=== PATIENT | male | born 1930 | race Caucasian/White ===

== ENCOUNTER 2019-08-02 15:12 | Outpatient (CLI) | payer MEDICARE, OTHER | END 2019-08-02 15:13 | disposition critical access hospital (66) | LOC: EMS 15:12 | PROVIDERS: ATTEND Surgery | DX: T83.028A Displacement of other urinary catheter, initial encounter (principal) | CPT/HCPCS: A0425; A0429 ==

== ENCOUNTER 2019-08-02 15:29 | Emergency (ER) | payer MEDICARE, OTHER ==
--- NOTE | 2019-08-02 16:22 | ED Physician Documentation ---
History of Present Illness - Stated complaint Stated Complaint: - Chief complaint Chief Complaint: General - History obtained from History obtained from: EMS - History of Present Illness Timing: Today Pain level max: 0 Pain level now: 0 - Additonal information Additional information: Patient is DNR, comfort care. He pulled out his catheter today. He was sent here for catheter replacement. Review of Systems Unable to obtain: Dementia PD PAST MEDICAL HISTORY - Past Medical History Past Medical History: Yes Neuro: Dementia - Allergies Allergies/Adverse Reactions: Allergies Allergy/AdvReac Type Severity Reaction Status Date / Time No Known Drug Allergies Allergy Verified 08/02/19 16:34 - Living Situation Living Arrangement: reports: [facility] - Social History Does the pt have substance abuse?: No - POLST POLST Status: DNR PD ED PE NORMAL - Vitals Vital signs reviewed: Yes - General General: Other (cachectic male) - HEENT HEENT: Moist mucous membranes - Neck Neck: Supple, no meningeal sign - Cardiac Cardiac: RRR - Respiratory Respiratory: No respiratory distress, Clear bilaterally - Abdomen Abdomen: Soft, Non tender, Non distended - Male Male : Other (large inguinal hernia. blood at urethral meatus) - Derm Derm: Warm and dry - Neuro Neuro: Other (alert) Results - Vitals Vitals: Vital Signs - 24 hr 08/02/19 08/02/19 08/02/19 15:38 16:07 18:09 Temperature 37.1 C 36.7 C Heart Rate 100 85 Respiratory 18 18 16 Rate Blood Pressure 107/70 108/72 128/90 H O2 Saturation 100 Oxygen O2 Source Room air PD MEDICAL DECISION MAKING - ED course Complexity details: reviewed results, re-evaluated patient, considered differential ED course: Catheter was replaced. Irrigation performed. Catheter placement confirmed with ultrasound. Several liters of irrigation were used with removal of large clots from the bladder. The bladder is now draining well. After 30 minutes, re- irrigation was performed with no more large clots. We will have the patient follow-up with urology and his doctor for further care. This document was made in part using voice recognition software. While efforts a re made to proofread this document, sound alike and grammatical errors may occur. Departure - Departure Disposition: 01 Home, Self Care Clinical Impression: Hematuria Qualifiers: Hematuria type: gross Qualified Code(s): R31.0 - Gross hematuria Dislodged Kemp catheter Qualifiers: Encounter type: initial encounter Qualified Code(s): T83.021A - Displacement of indwelling urethral catheter, initial encounter Condition: Stable Instructions: ED Catheter Care Kemp Follow-Up: your,doctor in 3 days. [Other] Comments: do not remove the catheter. He will likely need to follow up with urology to ensure there is no scarring. He may need to go to a hospital with urology if there is no drainage for 6 hrs.
[2019-08-02 19:10] VITALS: BP 124/89
== END 2019-08-02 19:58 | disposition home or self-care (01) ==
LOC: ED 15:29
DX: T83.021A Displacement of indwelling urethral catheter, initial encounter (principal); R31.0 Gross hematuria; F03.90 Unspecified dementia, unspecified severity, without behavioral disturbance, psychotic disturbance, mood disturbance, and anxiety; Z66 Do not resuscitate
CPT/HCPCS: 51702; 99281; 99283

== ENCOUNTER 2019-08-02 20:00 | Outpatient (CLI) | payer MEDICARE, OTHER | END 2019-08-02 20:01 | disposition home or self-care (01) | LOC: EMS 20:00 | PROVIDERS: ATTEND Surgery | DX: T83.021A Displacement of indwelling urethral catheter, initial encounter (principal); R31.9 Hematuria, unspecified; F03.90 Unspecified dementia, unspecified severity, without behavioral disturbance, psychotic disturbance, mood disturbance, and anxiety | CPT/HCPCS: A0425; A0428 ==

== ENCOUNTER 2019-08-03 13:55 | Outpatient (CLI) | payer MEDICARE, OTHER | END 2019-08-03 13:56 | disposition critical access hospital (66) | LOC: EMS 13:55 | PROVIDERS: ATTEND Surgery | DX: N50.89 Other specified disorders of the male genital organs (principal) | CPT/HCPCS: A0425; A0429 ==

== ENCOUNTER 2019-08-03 14:12 | Emergency (ER) | payer MEDICARE, OTHER ==
--- NOTE | 2019-08-03 14:43 | ED Physician Documentation ---
History of Present Illness - Stated complaint Stated Complaint: CATH ISSUE - Chief complaint Chief Complaint: General - Additonal information Additional information: Mr. Hayes is a 88 year old male who is here today from his retirement. He is demented and his code status is DNR. He was seen here yesterday after he removed his solomon catheter. A new one was installed. He developed left sided scrotal swelling since he was last here. He denies any pain or knowledge that he has swelling. I have not received any reports that he has had pain or fever. Review of Systems Unable to obtain: Dementia Constitutional: denies: Fever, Chills, Myalgias, Weight Loss, Sweats, Other GI: denies: Abdominal Pain, Abdominal Swelling, Nausea, Vomiting, Constipation, Diarrhea, Reviewed and negative, Other : reports: Other (see HPI) PD PAST MEDICAL HISTORY - Past Medical History Neuro: Dementia - Past Surgical History Past Surgical History: No - Present Medications Home Medications: Ambulatory Orders Medication Instructions Recorded Confirmed Apixaban [Eliquis] 2.5 mg PO BID 08/02/19 08/03/19 Finasteride 5 mg PO DAILY 08/02/19 08/03/19 Metoprolol Succinate 150 mg PO DAILY 08/02/19 08/03/19 - Allergies Allergies/Adverse Reactions: Allergies Allergy/AdvReac Type Severity Reaction Status Date / Time No Known Drug Allergies Allergy Verified 08/03/19 14:32 - Social History Does the pt smoke?: No Smoking Status: Never smoker Does the pt drink ETOH?: No Does the pt have substance abuse?: No - Immunizations Immunizations are current?: Yes - POLST Patient has POLST: No POLST Status: DNR PD ED PE NORMAL - Vitals Vital signs reviewed: Yes - General General: No acute distress, Well developed/nourished - HEENT HEENT: Atraumatic - Neck Neck: Supple, no meningeal sign - Cardiac Cardiac: RRR - Respiratory Respiratory: No respiratory distress - Abdomen Abdomen: Normal bowel sounds, Soft - Male Male : Wine Pasteurizer present, Other (solomon intact. There is a non-tender left sided scrotal mass. No induration, warmth, or skin changes. ) Results - Vitals Vitals: Vital Signs - 24 hr 08/03/19 14:23 Temperature 36.2 C L Heart Rate 53 L Respiratory 16 Rate Blood Pressure 132/85 H O2 Saturation 100 Oxygen O2 Source Room air PD MEDICAL DECISION MAKING - ED course Complexity details: other (Seen with attending ER physcican who decocomprssed the mass with direct manipulation. Patient had no pain, this was tolerated well without immediate complication. Patient may contact general surgery for outpatient follow up. Discussed this case with the retirement. They agree to contact surgery for consult, return here as needed for any emergent changes including signs and symptoms of incarceration. I also dicussed this case with our social studies teacher, pateint will need to obtain a referral for hospice consideration from a primary physician. ) Departure - Departure Disposition: 01 Home, Self Care Clinical Impression: Scrotal hernia Condition: Stable Instructions: ED Hernia Inguinal
[2019-08-03 15:01] VITALS: BP 130/80
== END 2019-08-03 15:48 | disposition home or self-care (01) ==
LOC: EDUNIT# → ED 14:12
DX: K40.90 Unilateral inguinal hernia, without obstruction or gangrene, not specified as recurrent (principal); F03.90 Unspecified dementia, unspecified severity, without behavioral disturbance, psychotic disturbance, mood disturbance, and anxiety; Z66 Do not resuscitate
CPT/HCPCS: 99283

== ENCOUNTER 2019-08-03 15:51 | Outpatient (CLI) | payer MEDICARE, OTHER | END 2019-08-03 15:52 | disposition home or self-care (01) | LOC: EMS 15:51 | PROVIDERS: ATTEND Surgery | DX: R41.0 Disorientation, unspecified (principal) | CPT/HCPCS: A0425; A0428 ==

== ENCOUNTER 2019-08-19 07:54 | Outpatient (CLI) | payer MEDICARE, OTHER | END 2019-08-19 07:55 | disposition critical access hospital (66) | LOC: EMS 07:54 | PROVIDERS: ATTEND Surgery | DX: R41.82 Altered mental status, unspecified (principal) | CPT/HCPCS: A0425; A0429 ==

== ENCOUNTER 2019-08-19 08:15 | Inpatient (IN) | payer MEDICARE, OTHER ==
[2019-08-19] MEDS ORDERED: SODIUM CHLORIDE 0.9% 1,000 ML IV ONE (08:21)
[2019-08-19] MEDS ORDERED: DILTIAZEM 50 MG/10 ML VIAL IVP ONE ×2 (08:26→10:58)
--- NOTE | 2019-08-19 08:26 | ED Physician Documentation ---
PD HPI ALTERED MENTAL STATUS - Stated complaint Stated Complaint: ALOC - History obtained from History obtained from: EMS - History of Present Illness Timing - onset: Today (This is an 88-year-old gentleman with dementia who presents from a memory care facility for altered mental status today. It sounds like at his baseline he talks but is pretty demented. Today he was reported to be worse off than normal. Prior to arrival was noted to be modestly hypotensive, in A. fib with RVR, afebrile. Patient is unable to give any history. He is on Eliquis. He has indwelling Kemp catheter. He is been at the current memory facility for only a few weeks.) Review of Systems Unable to obtain: Confused PD PAST MEDICAL HISTORY - Past Medical History Neuro: Dementia - Past Surgical History Past Surgical History: No - Present Medications Home Medications: Ambulatory Orders Medication Instructions Recorded Confirmed Apixaban [Eliquis] 2.5 mg PO BID 08/02/19 08/19/19 Finasteride 5 mg PO DAILY 08/02/19 08/19/19 Metoprolol Succinate 50 mg PO DAILY 08/02/19 08/19/19 Acetaminophen 650 mg PO Q4HR PRN 08/19/19 08/19/19 Bisacodyl Supp [Dulcolax Supp] 10 mg [place] DAILY PRN 08/19/19 08/19/19 Loperamide HCl [Loperamide] 2 mg PO ONCE 08/19/19 08/19/19 Mag Hydrox/Al Hydrox/Simeth 5 ml PO Q4HR PRN 08/19/19 08/19/19 [Antacid Suspension] Magnesium Hydroxide [Milk of 30 ml PO ONCE PRN 08/19/19 08/19/19 Magnesia] - Allergies Allergies/Adverse Reactions: Allergies Allergy/AdvReac Type Severity Reaction Status Date / Time No Known Drug Allergies Allergy Verified 08/19/19 08:32 - Social History Does the pt smoke?: No Smoking Status: Never smoker Does the pt drink ETOH?: No Does the pt have substance abuse?: No - Immunizations Immunizations are current?: Yes - POLST Patient has POLST: No POLST Status: DNR PD ED PE NORMAL - Vitals Vital signs reviewed: Yes - General General: Other (This is a somnolent elderly gentleman who appears thin laying in bed basically unresponsive.) - HEENT HEENT: Other (His pupils are equal and reactive, he seems to have a right gaze preference.) - Neck Neck: Supple, no meningeal sign, No bony TTP - Cardiac Cardiac: Other (Rapid and irregular, no murmur) - Respiratory Respiratory: No respiratory distress, Other (Slightly rhonchorous at the bases) - Abdomen Abdomen: Non tender - Back Back: No CVA TTP, No spinal TTP - Derm Derm: Normal color, Warm and dry - Neuro Neuro: Other (He is somnolent. He responds minimally to painful stimulus, seems more responsive to painful stimulus on the right than the left. Does not really withdraw at all to painful stimulus on the Left side of the face or left upper extremity but does in the left lower extremity a little bit. Does wince and withdraw on the right. He is completely nonverbal.) Eye Opening: To Pain Motor: Withdraws to Pain Verbal: None GCS Score: 7 Results - Vitals Vitals: Vital Signs - 24 hr 08/19/19 08/19/19 08/19/19 08:32 08:57 09:30 Temperature 36.3 C L Heart Rate 153 H 150 H 141 H Respiratory 16 16 16 Rate Blood Pressure 114/85 H 91/74 98/68 O2 Saturation 100 95 97 08/19/19 08/19/19 08/19/19 10:00 10:30 11:00 Temperature Heart Rate 142 H 146 H 129 H Respiratory 14 16 15 Rate Blood Pressure 91/65 93/60 90/62 O2 Saturation 98 99 100 08/19/19 11:30 Temperature Heart Rate 122 H Respiratory 15 Rate Blood Pressure 92/68 O2 Saturation 100 Oxygen O2 Source Nasal cannula - EKG (time done) 0831 Rate: Rate (enter#) (152) Rhythm: Atrial fibrillation Intervals: Other (LAFB) Ischemia: Other (Very mild lateral ST depression, likely rate related). No: ST elevation c/w ischemia Compare to prior EKG: Old EKG unavailable - Labs Labs: Laboratory Tests 08/19/19 08/19/19 08/19/19 08:38 08:38 08:38 WBC RBC Hgb Hct MCV MCH MCHC RDW Plt Count MPV Neut # (Auto) Lymph # (Auto) Dunn # (Auto) Eos # (Auto) Baso # (Auto) Absolute Nucleated RBC Total Counted Band Neuts % (Manual) Abnorm Lymph % (Manual) Nucleated RBC % Neutrophils # (Manual) Lymphocytes # (Manual) Monocytes # (Manual) Eosinophils # (Manual) Basophils # (Manual) Differential Comment Manual Slide Review PT 21.1 H INR 1.9 H APTT 29.3 Sodium 136 Potassium 3.5 Chloride 104 Carbon Dioxide 15 L Anion Gap 17.0 H BUN 156 H* Creatinine 4.3 H Estimated GFR (MDRD) 13 L Glucose 129 H Lactic Acid Calcium 7.4 L Total Bilirubin 1.1 H AST 43 H ALT 26 Alkaline Phosphatase 98 Total Creatine Kinase 51 Troponin I High Sens 17.0 Total Protein 5.5 L Albumin 2.3 L Globulin 3.2 Albumin/Globulin Ratio 0.7 L Lipase 34 Urine Color Urine Clarity Urine pH Ur Specific [place] Urine Protein Urine Glucose (UA) Urine Ketones Urine Occult Blood Urine Nitrite Urine Bilirubin Urine Urobilinogen Ur Leukocyte Esterase Urine RBC Urine WBC Ur Squamous Epith Cells Urine Bacteria Ur Microscopic Review Urine Culture Comments Ethyl Alcohol < 5.0 08/19/19 08/19/19 08/19/19 08:41 10:14 10:14 WBC 29.4 H RBC 4.14 L Hgb 13.2 L Hct 38.7 L MCV 93.5 MCH 31.9 H MCHC 34.1 RDW 14.0 Plt Count 208 MPV 12.0 H Neut # (Auto) Not Reportable Lymph # (Auto) Not Reportable Dunn # (Auto) Not Reportable Eos # (Auto) Not Reportable Baso # (Auto) Not Reportable Absolute Nucleated RBC Not Reportable Total Counted 100 Band Neuts % (Manual) 6 Abnorm Lymph % (Manual) 0 Nucleated RBC % Not Reportable Neutrophils # (Manual) 29.4 H Lymphocytes # (Manual) 0.0 L Monocytes # (Manual) 0.0 Eosinophils # (Manual) 0.0 Basophils # (Manual) 0.0 Differential Comment MANUAL DIFFERENTIAL Manual Slide Review Indicated PT INR APTT Sodium Potassium Chloride Carbon Dioxide Anion Gap BUN Creatinine Estimated GFR (MDRD) Glucose Lactic Acid 2.9 H Calcium Total Bilirubin AST ALT Alkaline Phosphatase Total Creatine Kinase Troponin I High Sens Total Protein Albumin Globulin Albumin/Globulin Ratio Lipase Urine Color RED/BLOODY Urine Clarity CLOUDY Urine pH 8.5 H Ur Specific [place] 1.010 Urine Protein 100 H Urine Glucose (UA) NEGATIVE Urine Ketones NEGATIVE Urine Occult Blood LARGE H Urine Nitrite POSITIVE H Urine Bilirubin NEGATIVE Urine Urobilinogen 0.2 (NORMAL) Ur Leukocyte Esterase LARGE H Urine RBC TNTC H Urine WBC >25 H Ur Squamous Epith Cells NONE SEEN Urine Bacteria Few Ur Microscopic Review INDICATED Urine Culture Comments INDICATED Ethyl Alcohol - Rads (name of study) ct hEAD Radiology: EMP read contemporaneously (NAD) 1V CHEST Radiology: EMP read contemporaneously (Possible early infiltrate or mild vascular fullness) PD MEDICAL DECISION MAKING - ED course ED course: 88-year-old gentleman presents with altered mental status. He has a catheter in place. Per notes obtained later, it was emptied at 6 AM with 300 mL out over the preceding 6 hours, which seems a little low. He is quite altered. He did seem to have maybe some lateralizing symptoms so of course stroke and intracranial hemorrhage were considered. No evidence of this on CT of the head. TPA was otherwise not considered since he is on Eliquis, and subsequently I confirmed with his sister by phone who is his decision maker that he would not want advanced intervention such as TPA, dialysis, intubation, CPR. Further work-up demonstrates significantly elevated white count with acute kidney injury and evidence of UTI. He was administered cefepime and Levaquin for combination of UTI and potential pneumonia on x-ray and urosepsis. He was given IV fluids. He was in A. fib with RVR and this was treated with IV fluids, calcium, AND diltiazem. There was a significant delay to antibiotics and admission because of difficulty obtaining nonhemolyzed labs. - Consults Consults: Request data communications software consultant admit patient (Admitted for further work-up and treatment by Dr. Alemna) - Critical Care Time(min): 45 Time Includes: Direct patient care, Review records, Reassess patient, Document care, Coordinate care, Medical consult, Family consult for hi dec Data interpretation: Labs, Pulse ox, CXR Procedures included in critical care time: Peripheral IV Procedures excluded from critical care time: EKG Departure - Departure Disposition: 66 [facility] DC/Xfer Clinical Impression: Atrial fibrillation with RVR Altered mental status Qualifiers: Altered mental status type: delirium Qualified Code(s): R41.0 - Disorientation, unspecified Sepsis Qualifiers: Sepsis type: sepsis due to unspecified organism Sepsis acute organ dysfunction status: with acute organ dysfunction Severe sepsis acute organ dysfunction type: acute renal failure Acute renal failure type: with acute renal cortical necrosis Severe sepsis shock status: without septic shock Qualified Code(s): A41.9 - Sepsis, unspecified organism Catheter-associated urinary tract infection Qualifiers: Indwelling urinary catheter type: indwelling urethral catheter Encounter type: initial encounter Qualified Code(s): T83.511A - Infection and inflammatory reaction due to indwelling urethral catheter, initial encounter Condition: Serious Discharge Date/Time: 08/19/19 12:50
[2019-08-19 09:01] LABS: INR 1.9 (0.8-1.2); PT - PROTHROMBIN TIME 21.1 secs (9.9-12.6)
[2019-08-19 09:08] LABS: PARTIAL THROMBOPLASTIN TIME 29.3 secs (24.9-33.3)
--- NOTE | 2019-08-19 09:12 | CT Report ---
Reason: altered Procedure Date: 08/19/2019 Accession Number: [id number] / [id number] Procedure: CT - HEAD WO CPT Code: Final Report FULL RESULT: EXAM: CT HEAD EXAM DATE: 08/19/2019 08:55 AM. CLINICAL HISTORY: Confusion. COMPARISON: CT HEAD WO CONTRAST 07/20/2019 1:26 PM. TECHNIQUE: Multiaxial CT images were obtained from the foramen magnum to the vertex. Reformats: Sagittal and coronal. IV contrast: None. In accordance with CT protocol optimization, one or more of the following dose reduction techniques were utilized for this exam: automated exposure control, adjustment of mA and/or KV based on patient size, or use of iterative reconstructive technique. FINDINGS: There is streak artifact secondary to patient head positioning and mild motion. Parenchyma: No intraparenchymal hemorrhage. No evidence of mass, midline shift, or CT findings of infarction. Scattered periventricular white matter hypodensity likely represents small vessel ischemic disease. Extraaxial Spaces: There is generalized volume loss. No subdural or epidural collections identified. Ventricles: Normal in size and position. Sinuses and Orbits: Imaged paranasal sinuses, orbits, and mastoids show no significant abnormality. Bones: No evidence of fracture or calvarial defect. Other: None. IMPRESSION: Limited assessment of the posterior fossa secondary to patient positioning. Within the visualized brain, no acute CT abnormalities are seen. RADIA
[2019-08-19 09:17] LABS: BILIRUBIN,URINE NEGATIVE (NEGATIVE); GLUCOSE, URINE (UA) NEGATIVE (NEGATIVE); KETONES,URINE (UA) NEGATIVE (NEGATIVE); LEUKOCYTE ESTERASE, URINE LARGE (NEGATIVE); NITRITE,URINE POSITIVE (NEGATIVE); OCCULT BLOOD,URINE LARGE (NEGATIVE); PH,URINE 8.5 PH (5.0-7.5); PROTEIN,URINE 100 mg/dL (NEGATIVE); UROBILINOGEN,URINE 0.2 (NORMAL) E.U./dL (NORMAL)
[2019-08-19 09:18] LABS: CLARITY,URINE CLOUDY (CLEAR)
--- NOTE | 2019-08-19 09:19 | XRAY Report ---
Reason: altered Procedure Date: 08/19/2019 Accession Number: [id number] / [id number] Procedure: XR - Chest 1 View X-Ray CPT Code: 31922 Final Report FULL RESULT: EXAM: CHEST RADIOGRAPHY EXAM DATE: 08/19/2019 09:11 AM. CLINICAL HISTORY: Altered mental status. COMPARISON: XR CHEST AP PORTABLE 07/20/2019 12:40 PM. TECHNIQUE: 1 view. FINDINGS: Lungs/Pleura: Some increased density in both lungs, previously noted left pleural effusion is no longer present. Mediastinum: Within exam limitations, the cardiomediastinal contour is normal. Other: None. IMPRESSION: 1. Increased density of both lungs. This is vascular versus early infiltrate. The previously noted left pleural effusion is no longer present. RADIA
[2019-08-19 09:30] LABS: ALBUMIN 2.3 g/dL (3.2-5.5); ALBUMIN/GLOBULIN RATIO 0.7 (1.0-2.2); ALKALINE PHOSPHATASE 98 IU/L (42-121); ALT ALANINE AMINOTRANSFERASE 26 IU/L (10-60); AST ASPARTATE AMINOTRANSFERASE 43 IU/L (10-42); BILIRUBIN,TOTAL 1.1 mg/dL (0.2-1.0); BUN - BLOOD UREA NITROGEN 156 mg/dL (6-20); CALCIUM 7.4 mg/dL (8.5-10.3); CARBON DIOXIDE - CO2 15 mmol/L (21-32); CHLORIDE 104 mmol/L (101-111); CK- CREATINE KINASE 51 IU/L (22-269); CREATININE 4.3 mg/dL (0.6-1.2); GLUCOSE 129 mg/dL (70-100); LIPASE 34 U/L (22-51); SODIUM 136 mmol/L (135-145); TOTAL PROTEIN 5.5 g/dL (6.7-8.2)
[2019-08-19] MEDS ORDERED: CALCIUM GLUCONATE 1,000 MG in SODIUM CHLORIDE 0.9% 50 ML IV STA (09:34)
[2019-08-19 09:40] LABS: BACTERIA,URINE Few /HPF (None Seen); RBC,URINE TNTC /HPF (0-5); SQUAMOUS EPITHELIAL CELL,UR NONE SEEN (<= Few)
[2019-08-19] MEDS ORDERED: CEFEPIME 2 GM in SODIUM CHLORIDE 0.9% MINIBAG 100 ML IV STA (09:47)
[2019-08-19 10:23] LABS: BASOPHILS % (AUTO) 0.3 %; HGB - HEMOGLOBIN 13.2 g/dL (14.0-18.0); LYMPHOCYTES % (AUTO) 2.7 %; MEAN CORPUSCULAR HEMOGLOBIN 31.9 pg (27.0-31.0); MEAN CORPUSCULAR HGB CONC 34.1 g/dL (32.0-36.0); MEAN CORPUSCULAR VOLUME 93.5 fL (80.0-94.0); MONOCYTES % (AUTO) 1.8 %; NEUTROPHILS % (AUTO) 93.8 %; PLT - PLATELET COUNT 208 10^3/uL (130-450); RED BLOOD COUNT 4.14 10^6/uL (4.70-6.10); WHITE BLOOD COUNT 29.4 x10^3/uL (4.8-10.8)
[2019-08-19 10:28] LABS: ABNORMAL LYMPHS % (MANUAL) 0 %; LYMPHOCYTES % (MANUAL) 0 %
[2019-08-19] MEDS ORDERED: levoFLOXacin 750 MG/150 ML 750 MG/150 ML BAG IV ONE (10:41)
[2019-08-19 10:48] LABS: BAND NEUTROPHILS % (MANUAL) 6 %; DIFFERENTIAL COMMENT MANUAL DIFFERENTIAL
[2019-08-19] MEDS ORDERED: diltiaZEM INJ 125 MG in DEXTROSE 5% 100 ML IV STA (10:58)
[2019-08-19] MEDS ORDERED: ONDANSETRON 4 MG/2 ML VIAL IVP PRN (11:32)
[2019-08-19] MEDS ORDERED: DEXTROSE 5%-0.9% NACL 1,000 ML IV SCH (12:00)
--- NOTE | 2019-08-19 13:12 | HISTORY & PHYSICAL EXAMINATION ---
Chief Complaint - Chief Complaint Chief Complaint: altered mental status at [facility] History of Present Illness - Admitted From Admitted From:: ED - History Obtained From Records Reviewed: [facility] and spoke with nurse at [facility] History obtained from: ED physician and [facility] nurse Exam Limitations: Pt was obtunded - History of Present Illness HPI Comment/Other: 88 yo male who resides at [facility] comes in because he was noted to be obtunded this morning by staff. No seizure activity noted. Pt has diagnosis of alzheimers dementia and was recently admitted to [facility] from [facility] for acute renal failure (resolved), urethral obstruction, BPH, pleural effusion. Pt had recently had his metoprolol dose dropped from 100 mg daily to 50 mg daily. He is on eliquis 2.5 mg twice daily for anticoagulation for atrial fibrillation. Pt came to our facility with indwelling solomon catheter that had been in place since being on [facility]. History - Past Medical History Cardiovascular: reports: Atrial fibrillation, Arrhythmia Neuro: reports: Alzhiemer's, Dementia : reports: Benign prostate hypertrophy, Retention, Renal insuffiency, Indwelling catheter MRSA Hx?: No - POLST Patient has POLST: No POLST Status: DNR Meds/Allgy - Home Medications Home Medications: Ambulatory Orders Medication Instructions Recorded Confirmed Apixaban [Eliquis] 2.5 mg PO BID 08/02/19 08/19/19 Finasteride 5 mg PO DAILY 08/02/19 08/19/19 Metoprolol Succinate 50 mg PO DAILY 08/02/19 08/19/19 Acetaminophen 650 mg PO Q4HR PRN 08/19/19 08/19/19 Bisacodyl Supp [Dulcolax Supp] 10 mg [place] DAILY PRN 08/19/19 08/19/19 Loperamide HCl [Loperamide] 2 mg PO ONCE 08/19/19 08/19/19 Mag Hydrox/Al Hydrox/Simeth 5 ml PO Q4HR PRN 08/19/19 08/19/19 [Antacid Suspension] Magnesium Hydroxide [Milk of 30 ml PO ONCE PRN 08/19/19 08/19/19 Magnesia] - Allergies Allergies/Adverse Reactions: Allergies Allergy/AdvReac Type Severity Reaction Status Date / Time No Known Drug Allergies Allergy Verified 08/19/19 08:32 Review of Systems - Constitutional Constitutional: reports: Other (unable to obtain due to pts being obtunded) Exam - Vital Signs Vital Signs: Vital Signs x48h Temp Pulse Pulse Resp BP BP Pulse Ox 08/19/19 12:55 35.8 C L 146 H 18 110/84 H 99 08/19/19 12:30 124 H 17 95/69 99 08/19/19 12:00 126 H 16 78/53 L 99 08/19/19 11:30 122 H 15 92/68 100 08/19/19 11:00 129 H 15 90/62 100 08/19/19 10:30 146 H 16 93/60 99 08/19/19 10:00 142 H 14 91/65 98 08/19/19 09:30 141 H 16 98/68 97 08/19/19 08:57 150 H 16 91/74 95 08/19/19 08:32 36.3 C L 153 H 16 114/85 H 100 - Physical Exam General Appearance: positive: Lethargic (Does not respond to answer to any commands) Eyes Bilateral: positive: Other (Mild lateral gaze) ENT: positive: Dry mucous membranes Neck: positive: Nml inspection Respiratory: positive: Other (Decrease breath sounds in the lung bases, but no respiratory distress) Cardiovascular: positive: Irregularly irregular Abdomen: positive: Other (Pts lower abdomen was mildly hard, pt did not seem to respond in pain with exam) Skin: positive: Color nml Extremities: positive: Pedal edema Neurologic/Psychiatric: positive: Disoriented to person, Disoriented to place, Disoriented to time Sepsis Event Note (H) - Evaluation Current Stage of Sepsis: Sepsis Possible source of Sepsis: positive: Pulmonary, Genitourinary - Sepsis Criteria Sepsis Criteria: Recorded Heart Rate greater than 90 bpm, Respiratory: Increasing oxygen requirements, WBC count greater than 12,000 or less than 4000, OUTSIDE SALES ACCOUNT EXECUTIVE: altered consciousness (unrelated to primary neuro pathology), SBP less than 90 mmHg, Metabolic: lactate > 2 mmol/L Conclusion/Plan - Problem List (1) Sepsis Conclusion/Plan: Admit to ICU Pt had antibiotics of cefepime and Levaquin IV given in ED. Will repeat CXR and follow blood cultures, urine cultures and will get COVID testing Qualifiers: Sepsis type: sepsis due to unspecified organism Sepsis acute organ dysfunction status: with acute organ dysfunction Severe sepsis acute organ dysfunction type: acute renal failure Acute renal failure type: with acute renal cortical necrosis Severe sepsis shock status: without septic shock Qualified Code(s): A41.9 - Sepsis, unspecified organism; R65.20 - Severe sepsis without septic shock; N17.1 - Acute kidney failure with acute cortical necrosis (2) Altered mental status Conclusion/Plan: Likely worsening AMS from Sepsis. HIs baseline is some confusion as he has diagnosis of alzheimers dementia and lives at a memory care facility ([facility]) Qualifiers: Altered mental status type: delirium Qualified Code(s): R41.0 - Disorientation, unspecified (3) Atrial fibrillation with RVR Conclusion/Plan: Diltiazem Drip for rate control Pt was on metoprolol succinate previous to admit for rate controlled which was recently lowered dose from 100 mg to 50 mg in reviewing old records. I suspect most of this rapid rate is due to sepsis. first troponin was negative, will repeat another one Echo ordered (4) Acute renal failure (ARF) Conclusion/Plan: I do not have patient's baseline renal function, did request it be faxed from [facility]. He was recently admitted from [facility] with ARF likely due to BPH with obstruction, will request records (5) Catheter-associated urinary tract infection Conclusion/Plan: This is the mostly likely source of the sepsis, solomon catheter will be changed. Follow urine culture and blood cultures, but pt did not have a normal CXR. Qualifiers: Indwelling urinary catheter type: indwelling urethral catheter Encounter type: initial encounter Qualified Code(s): T83.511A - Infection and inflammatory reaction due to indwelling urethral catheter, initial encounter; N39.0 - Urinary tract infection, site not specified (6) Alzheimer's dementia Conclusion/Plan: Patient has this dx at baseline and resides at memory care unit. - Lab Results Fish Bones: 08/19/19 10:14 08/19/19 08:38 - Diagnostic Imaging Results Diagnostic Imaging Results: positive: Final report reviewed (CXR shows early infiltrate vs vascular congestion), Read independently Diagnostic Imaging Results Comments: CT head, limited posterior view, but nothing acute CXR - possible early infiltrate - EKG Results EKG Interpreted Independently: Yes EKG Comparison: Old EKG unavailable
--- NOTE | 2019-08-19 13:21 | XRAY Report ---
Reason: abdominal tenderness/sepsis Procedure Date: 08/19/2019 Accession Number: [id number] / [id number] Procedure: XR - Abdomen 1 View X-Ray CPT Code: 74067 Final Report FULL RESULT: EXAM: ABDOMEN RADIOGRAPHY EXAM DATE: 08/19/2019 12:16 PM. CLINICAL HISTORY: Abdominal tenderness/sepsis. COMPARISON: CT ABDOMEN PELVIS WO C 07/20/2019 1:34 PM CHEST 1 VIEW 08/19/2019 8:51 AM. TECHNIQUE: 1 view. FINDINGS IMPRESSION: Multiple leads overlie the abdomen. The bowel gas pattern is nonobstructive. No bowel dilation. There is bowel within a left inguinal hernia, better demonstrated on previous CT. Small amount of visible stool. Moderate scoliosis.
--- NOTE | 2019-08-19 13:45 | PHARMACY PROGRESS NOTE ---
- Best Possible Medication History Admit Date and Time: 08/19/19 1132 Processed by: Nursing Medication History completed: Yes As the person ultimately responsible for medication therapy, providers are able to order a medication from an existing home medication list in [facility] via the "Reconcile Routine" prior to Confirmation of that medication by systems support engineer. Such practice is discouraged except when the physician, in their clinical judgment, deems that a medical need exists for a medication without regard to previous use.
[2019-08-19] MEDS: SODIUM CHLORIDE FLUSH 0.9% 10 ML SYRINGE IVP SCH (16:15)
[2019-08-19] MEDS: ZINC OXIDE 20% OINT 30 GM TUBE TOP PRN (16:16)
--- NOTE | 2019-08-19 18:06 | Ultrasound Report ---
Reason: urinary retention, indwelling solomon Procedure Date: 08/19/2019 Accession Number: [id number] / [id number] Procedure: US - Retroperitoneal CPT Code: Final Report FULL RESULT: EXAM: RENAL ULTRASOUND EXAM DATE: 08/19/2019 02:32 PM. CLINICAL HISTORY: Urinary retention, indwelling solomon. COMPARISON: ABDOMEN 1 VIEW 08/19/2019 11:[address] ABDOMEN PELVIS WO C 07/20/2019 1:34 PM XR CHEST AP PORTABLE 07/20/2019 12:40 PM. TECHNIQUE: Real-time scanning was performed with static images obtained. FINDINGS: Limited exam due to patient condition. Right Kidney: 14.4 x 0.6 x 10.7 cm. There is moderate hydronephrosis. The cortex is echogenic. There is a mid pole lesion extending into the hilum with heterogeneous echogenicity and numerous cystic cavities measuring 7.7 x 5.6 x 9.7 cm. This appeared mostly cystic on the noncontrast CT. Left Kidney: 12.4 cm in length. Limited visualization. Mildly echogenic cortex. Moderate hydronephrosis. Bladder: The bladder is decompressed and contains a Solomon catheter. Other: None. IMPRESSION: 1. Limited exam. Decompressed urinary bladder with Solomon catheter in place. 2. Bilateral hydronephrosis. 3. Cystic right renal mass. RADIA
--- NOTE | 2019-08-19 18:09 | Ultrasound Report ---
Reason: left scrotal edema Procedure Date: 08/19/2019 Accession Number: [id number] / [id number] Procedure: US - Testicle CPT Code: Final Report FULL RESULT: EXAM: SCROTAL ULTRASOUND EXAM DATE: 08/19/2019 03:43 PM. CLINICAL HISTORY: Left scrotal edema. COMPARISON: CT ABDOMEN PELVIS WO C 07/20/2019 1:34 PM. TECHNIQUE: Real-time scanning was performed with static images obtained. Color-flow images were utilized. FINDINGS IMPRESSION: Limited exam due to patient condition. The large left inguinal hernia is better visualized on prior CT. Limited visualization of both testicles is grossly unremarkable. There is venous flow to the testicles bilaterally.
[2019-08-19] MEDS ORDERED: DEXTROSE 5%-0.45% NACL 1,000 ML IV SCH (19:00)
[2019-08-19] MEDS: DILTIAZEM 125 MG in DEXTROSE 5% 100 ML IV SCH (20:49)
[2019-08-19] MEDS ORDERED: FAMOTIDINE 20 MG/2 ML VIAL IVP SCH (21:00)
[2019-08-19] MEDS: DEXTROSE 5%-0.45% NACL 1,000 ML IV SCH (22:10)
[2019-08-19] MEDS: ENOXAPARIN 40 MG/0.4 ML SYRINGE SUBQ SCH (22:34)
[2019-08-19] MEDS: METOPROLOL 5 MG/5 ML VIAL IVP PRN (22:35)
[2019-08-19] MEDS ORDERED: ENOXAPARIN 30 MG/0.3 ML SYRINGE SUBQ SCH (23:00)
[2019-08-20] MEDS: SODIUM CHLORIDE FLUSH 0.9% 10 ML SYRINGE IVP SCH ×3 (00:09→19:40)
[2019-08-20] MEDS: METOPROLOL 5 MG/5 ML VIAL IVP PRN ×2 (04:40→11:59)
[2019-08-20 05:01] LABS: BASOPHILS % (AUTO) 0.2 %; EOSINOPHILS % (AUTO) 0.1 %; HGB - HEMOGLOBIN 12.1 g/dL (14.0-18.0); LYMPHOCYTES # (AUTO) 0.8 10^3/uL (1.5-3.5); LYMPHOCYTES % (AUTO) 4.3 %; MEAN CORPUSCULAR HEMOGLOBIN 31.5 pg (27.0-31.0); MEAN CORPUSCULAR HGB CONC 34.5 g/dL (32.0-36.0); MEAN CORPUSCULAR VOLUME 91.4 fL (80.0-94.0); MEAN PLATELET VOLUME 11.6 fL (7.4-11.4); MONOCYTES # (AUTO) 0.6 10^3/uL (0.0-1.0); MONOCYTES % (AUTO) 2.9 %; NEUTROPHILS # (AUTO) 17.5 10^3/uL (1.5-6.6); NEUTROPHILS % (AUTO) 91.5 %; PLT - PLATELET COUNT 233 10^3/uL (130-450); RED BLOOD COUNT 3.84 10^6/uL (4.70-6.10); RED CELL DISTRIBUTION WIDTH 13.8 % (12.0-15.0); WHITE BLOOD COUNT 19.1 x10^3/uL (4.8-10.8)
[2019-08-20 05:24] LABS: ALBUMIN 2.1 g/dL (3.2-5.5); ALBUMIN/GLOBULIN RATIO 0.7 (1.0-2.2); BILIRUBIN,TOTAL 0.7 mg/dL (0.2-1.0); CALCIUM 7.1 mg/dL (8.5-10.3); CREATININE 3.6 mg/dL (0.6-1.2); TOTAL PROTEIN 5.1 g/dL (6.7-8.2)
[2019-08-20] MEDS: DILTIAZEM 125 MG in DEXTROSE 5% 100 ML IV SCH (05:50)
[2019-08-20] MEDS: DEXTROSE 5%-0.45% NACL 1,000 ML IV SCH (06:56)
[2019-08-20 07:05] LABS: PT - PROTHROMBIN TIME 21.6 secs (9.9-12.6)
[2019-08-20] MEDS ORDERED: levoFLOXacin 750 MG/150 ML 750 MG/150 ML BAG IV ONE (08:00)
[2019-08-20] MEDS ORDERED: CEFEPIME IV SCH (09:00)
[2019-08-20] MEDS ORDERED: SODIUM CHLORIDE 0.9% IV SCH (09:00)
[2019-08-20] MEDS ORDERED: METOPROLOL SUCCINATE 50 MG TABLET PO SCH (09:00)
[2019-08-20] MEDS: CEFEPIME 1 GM in SODIUM CHLORIDE 0.9% MINIBAG 100 ML IV SCH (09:09)
[2019-08-20] MEDS: polyethylene glycoL 3350 17 GM PACKET PO SCH (09:18)
--- NOTE | 2019-08-20 09:25 | PROVIDER PROGRESS NOTE ---
Subjective - Prog Note Date Prog Note Date: 08/20/19 Prog Note Time: 09:40 - Subjective Pt reports feeling: Improved (88 yo M with Alzheimer's disease admitted on for sepsis with urinary source due to solomon catheter (chronic) associated UTI found to have gram positive bacteremia. This morning he reports feeling well. He denies feeling ill, pain.) Objective - Vital Signs/Intake & Output Vital Signs: Vital Signs x48h Temp Pulse Resp BP BP Pulse Ox 08/20/19 09:00 36.0 C L 77 19 96/68 100 08/20/19 08:45 127 H 16 96/65 08/20/19 08:00 36.1 C L 121 H 23 82/65 L 98 08/20/19 07:00 36.2 C L 120 H 21 87/53 L 99 08/20/19 06:00 36.2 C L 113 H 19 108/74 99 08/20/19 05:30 97/69 08/20/19 05:00 36.2 C L 115 H 15 100/72 99 08/20/19 04:40 110/68 08/20/19 04:00 36.3 C L 123 H 14 84/61 L 98 08/20/19 03:00 36.3 C L 121 H 20 103/71 99 08/20/19 02:00 36.4 C L 112 H 15 89/58 L 98 Intake & Output: Intake & Output 08/17/19 08/18/19 08/19/19 08/20/19 23:59 23:59 23:59 23:59 Intake Total 2406.750 938.301 Output Total 2855 1227 Balance -448.250 -288.699 - Objective General Appearance: positive: No acute distress, Alert Eyes Bilateral: positive: Normal inspection Cardiovascular: positive: Irregularly irregular, Tachycardia Abdomen: positive: Non-tender, Nml bowel sounds, No distention Extremities: positive: Pedal edema (3+ BILATERAL FEET, SYMMETRIC), Other (MULTIPLE SMALL ABRASIONS ON THE MEDIAL ASPECTS WITH SCABS) Neurologic/Psychiatric: negative: Facial droop, Slurred/abnml speech - Lab Results Fish Bones: 08/20/19 04:30 08/20/19 04:30 Other Labs: Lab Results x24hrs 08/20/19 08/20/19 08/20/19 Range/Units 06:55 04:30 04:30 WBC 19.1 H (4.8-10.8) x10^3/uL RBC 3.84 L (4.70-6.10) 10^6/uL Hgb 12.1 L (14.0-18.0) g/dL Hct 35.1 L (42.0-52.0) % MCV 91.4 (80.0-94.0) fL MCH 31.5 H (27.0-31.0) pg MCHC 34.5 (32.0-36.0) g/dL RDW 13.8 (12.0-15.0) % Plt Count 233 (130-450) 10^3/uL MPV 11.6 H (7.4-11.4) fL Neut # (Auto) 17.5 H Lymph # (Auto) 0.8 L [place] # (Auto) 0.6 Eos # (Auto) 0.0 Baso # (Auto) 0.0 Absolute Nucleated RBC 0.00 Total Counted Band Neuts % (Manual) (0 - 10) % Abnorm Lymph % (Manual) % Nucleated RBC % 0.0 Neutrophils # (Manual) (1.5-6.6) 10^3/uL Lymphocytes # (Manual) (1.5-3.5) 10^3/uL Monocytes # (Manual) (0.0-1.0) 10^3/uL Eosinophils # (Manual) (0-0.7) 10^3/uL Basophils # (Manual) (0-0.1) 10^3/uL Differential Comment Manual Slide Review PT 21.6 H (9.9-12.6) secs INR 2.0 H (0.8-1.2) APTT (24.9-33.3) secs Sodium (135-145) mmol/L Potassium (3.5-5.0) mmol/L Chloride (101-111) mmol/L Carbon Dioxide (21-32) mmol/L Anion Gap (6-13) BUN (6-20) mg/dL Creatinine (0.6-1.2) mg/dL Estimated GFR (MDRD) (>89) Glucose (70-100) mg/dL Lactic Acid 1.6 (0.5-2.2) mmol/L Calcium (8.5-10.3) mg/dL Total Bilirubin (0.2-1.0) mg/dL AST (10-42) IU/L ALT (10-60) IU/L Alkaline Phosphatase (42-121) IU/L Total Creatine Kinase (22-269) IU/L Troponin I High Sens (2.3-19.7) ng/L Total Protein (6.7-8.2) g/dL Albumin (3.2-5.5) g/dL Globulin (2.1-4.2) g/dL Albumin/Globulin Ratio (1.0-2.2) Lipase (22-51) U/L Urine RBC (0-5) /HPF Urine WBC (0-3) /HPF Ur Squamous Epith Cells (<= Few) Urine Bacteria (None Seen) /HPF Urine Culture Comments Nasal Screen MRSA (PCR) (NEGATIVE) Ethyl Alcohol mg/dL Blood Type Antibody Screen 08/20/19 08/20/19 08/20/19 Range/Units 04:30 04:30 04:30 WBC (4.8-10.8) x10^3/uL RBC (4.70-6.10) 10^6/uL Hgb (14.0-18.0) g/dL Hct (42.0-52.0) % MCV (80.0-94.0) fL MCH (27.0-31.0) pg MCHC (32.0-36.0) g/dL RDW (12.0-15.0) % Plt Count (130-450) 10^3/uL MPV (7.4-11.4) fL Neut # (Auto) Lymph # (Auto) [place] # (Auto) Eos # (Auto) Baso # (Auto) Absolute Nucleated RBC Total Counted Band Neuts % (Manual) (0 - 10) % Abnorm Lymph % (Manual) % Nucleated RBC % Neutrophils # (Manual) (1.5-6.6) 10^3/uL Lymphocytes # (Manual) (1.5-3.5) 10^3/uL Monocytes # (Manual) (0.0-1.0) 10^3/uL Eosinophils # (Manual) (0-0.7) 10^3/uL Basophils # (Manual) (0-0.1) 10^3/uL Differential Comment Manual Slide Review PT (9.9-12.6) secs INR (0.8-1.2) APTT 32.2 (24.9-33.3) secs Sodium 140 (135-145) mmol/L Potassium 2.6 L (3.5-5.0) mmol/L Chloride 113 H (101-111) mmol/L Carbon Dioxide 16 L (21-32) mmol/L Anion Gap 11.0 (6-13) BUN 137 H* (6-20) mg/dL Creatinine 3.6 H (0.6-1.2) mg/dL Estimated GFR (MDRD) 16 L (>89) Glucose 181 H (70-100) mg/dL Lactic Acid (0.5-2.2) mmol/L Calcium 7.1 L (8.5-10.3) mg/dL Total Bilirubin 0.7 (0.2-1.0) mg/dL AST 24 (10-42) IU/L ALT 24 (10-60) IU/L Alkaline Phosphatase 77 (42-121) IU/L Total Creatine Kinase (22-269) IU/L Troponin I High Sens (2.3-19.7) ng/L Total Protein 5.1 L (6.7-8.2) g/dL Albumin 2.1 L (3.2-5.5) g/dL Globulin 3.0 (2.1-4.2) g/dL Albumin/Globulin Ratio 0.7 L (1.0-2.2) Lipase (22-51) U/L Urine RBC (0-5) /HPF Urine WBC (0-3) /HPF Ur Squamous Epith Cells (<= Few) Urine Bacteria (None Seen) /HPF Urine Culture Comments Nasal Screen MRSA (PCR) (NEGATIVE) Ethyl Alcohol mg/dL Blood Type O NEGATIVE Antibody Screen NEGATIVE 08/19/19 08/19/19 08/19/19 Range/Units 22:04 18:14 13:08 WBC (4.8-10.8) x10^3/uL RBC (4.70-6.10) 10^6/uL Hgb (14.0-18.0) g/dL Hct (42.0-52.0) % MCV (80.0-94.0) fL MCH (27.0-31.0) pg MCHC (32.0-36.0) g/dL RDW (12.0-15.0) % Plt Count (130-450) 10^3/uL MPV (7.4-11.4) fL Neut # (Auto) Lymph # (Auto) [place] # (Auto) Eos # (Auto) Baso # (Auto) Absolute Nucleated RBC Total Counted Band Neuts % (Manual) (0 - 10) % Abnorm Lymph % (Manual) % Nucleated RBC % Neutrophils # (Manual) (1.5-6.6) 10^3/uL Lymphocytes # (Manual) (1.5-3.5) 10^3/uL Monocytes # (Manual) (0.0-1.0) 10^3/uL Eosinophils # (Manual) (0-0.7) 10^3/uL Basophils # (Manual) (0-0.1) 10^3/uL Differential Comment Manual Slide Review PT (9.9-12.6) secs INR (0.8-1.2) APTT (24.9-33.3) secs Sodium (135-145) mmol/L Potassium (3.5-5.0) mmol/L Chloride (101-111) mmol/L Carbon Dioxide (21-32) mmol/L Anion Gap (6-13) BUN (6-20) mg/dL Creatinine (0.6-1.2) mg/dL Estimated GFR (MDRD) (>89) Glucose (70-100) mg/dL Lactic Acid 1.7 (0.5-2.2) mmol/L Calcium (8.5-10.3) mg/dL Total Bilirubin (0.2-1.0) mg/dL AST (10-42) IU/L ALT (10-60) IU/L Alkaline Phosphatase (42-121) IU/L Total Creatine Kinase (22-269) IU/L Troponin I High Sens 14.0 (2.3-19.7) ng/L Total Protein (6.7-8.2) g/dL Albumin (3.2-5.5) g/dL Globulin (2.1-4.2) g/dL Albumin/Globulin Ratio (1.0-2.2) Lipase (22-51) U/L Urine RBC (0-5) /HPF Urine WBC (0-3) /HPF Ur Squamous Epith Cells (<= Few) Urine Bacteria (None Seen) /HPF Urine Culture Comments Nasal Screen MRSA (PCR) NEGATIVE (NEGATIVE) Ethyl Alcohol mg/dL Blood Type Antibody Screen 08/19/19 08/19/19 08/19/19 Range/Units 10:14 10:14 08:41 WBC 29.4 H (4.8-10.8) x10^3/uL RBC 4.14 L (4.70-6.10) 10^6/uL Hgb 13.2 L (14.0-18.0) g/dL Hct 38.7 L (42.0-52.0) % MCV 93.5 (80.0-94.0) fL MCH 31.9 H (27.0-31.0) pg MCHC 34.1 (32.0-36.0) g/dL RDW 14.0 (12.0-15.0) % Plt Count 208 (130-450) 10^3/uL MPV 12.0 H (7.4-11.4) fL Neut # (Auto) Not Reportable Lymph # (Auto) Not Reportable [place] # (Auto) Not Reportable Eos # (Auto) Not Reportable Baso # (Auto) Not Reportable Absolute Nucleated RBC Not Reportable Total Counted 100 Band Neuts % (Manual) 6 (0 - 10) % Abnorm Lymph % (Manual) 0 % Nucleated RBC % Not Reportable Neutrophils # (Manual) 29.4 H (1.5-6.6) 10^3/uL Lymphocytes # (Manual) 0.0 L (1.5-3.5) 10^3/uL Monocytes # (Manual) 0.0 (0.0-1.0) 10^3/uL Eosinophils # (Manual) 0.0 (0-0.7) 10^3/uL Basophils # (Manual) 0.0 (0-0.1) 10^3/uL Differential Comment MANUAL DIFFERENTIAL Manual Slide Review Indicated PT (9.9-12.6) secs INR (0.8-1.2) APTT (24.9-33.3) secs Sodium (135-145) mmol/L Potassium (3.5-5.0) mmol/L Chloride (101-111) mmol/L Carbon Dioxide (21-32) mmol/L Anion Gap (6-13) BUN (6-20) mg/dL Creatinine (0.6-1.2) mg/dL Estimated GFR (MDRD) (>89) Glucose (70-100) mg/dL Lactic Acid 2.9 H (0.5-2.2) mmol/L Calcium (8.5-10.3) mg/dL Total Bilirubin (0.2-1.0) mg/dL AST (10-42) IU/L ALT (10-60) IU/L Alkaline Phosphatase (42-121) IU/L Total Creatine Kinase (22-269) IU/L Troponin I High Sens (2.3-19.7) ng/L Total Protein (6.7-8.2) g/dL Albumin (3.2-5.5) g/dL Globulin (2.1-4.2) g/dL Albumin/Globulin Ratio (1.0-2.2) Lipase (22-51) U/L Urine RBC TNTC H (0-5) /HPF Urine WBC >25 H (0-3) /HPF Ur Squamous Epith Cells NONE SEEN (<= Few) Urine Bacteria Few (None Seen) /HPF Urine Culture Comments INDICATED Nasal Screen MRSA (PCR) (NEGATIVE) Ethyl Alcohol mg/dL Blood Type Antibody Screen 08/19/19 Range/Units 08:38 WBC (4.8-10.8) x10^3/uL RBC (4.70-6.10) 10^6/uL Hgb (14.0-18.0) g/dL Hct (42.0-52.0) % MCV (80.0-94.0) fL MCH (27.0-31.0) pg MCHC (32.0-36.0) g/dL RDW (12.0-15.0) % Plt Count (130-450) 10^3/uL MPV (7.4-11.4) fL Neut # (Auto) Lymph # (Auto) [place] # (Auto) Eos # (Auto) Baso # (Auto) Absolute Nucleated RBC Total Counted Band Neuts % (Manual) (0 - 10) % Abnorm Lymph % (Manual) % Nucleated RBC % Neutrophils # (Manual) (1.5-6.6) 10^3/uL Lymphocytes # (Manual) (1.5-3.5) 10^3/uL Monocytes # (Manual) (0.0-1.0) 10^3/uL Eosinophils # (Manual) (0-0.7) 10^3/uL Basophils # (Manual) (0-0.1) 10^3/uL Differential Comment Manual Slide Review PT (9.9-12.6) secs INR (0.8-1.2) APTT (24.9-33.3) secs Sodium 136 (135-145) mmol/L Potassium 3.5 (3.5-5.0) mmol/L Chloride 104 (101-111) mmol/L Carbon Dioxide 15 L (21-32) mmol/L Anion Gap 17.0 H (6-13) BUN 156 H* (6-20) mg/dL Creatinine 4.3 H (0.6-1.2) mg/dL Estimated GFR (MDRD) 13 L (>89) Glucose 129 H (70-100) mg/dL Lactic Acid (0.5-2.2) mmol/L Calcium 7.4 L (8.5-10.3) mg/dL Total Bilirubin 1.1 H (0.2-1.0) mg/dL AST 43 H (10-42) IU/L ALT 26 (10-60) IU/L Alkaline Phosphatase 98 (42-121) IU/L Total Creatine Kinase 51 (22-269) IU/L Troponin I High Sens (2.3-19.7) ng/L Total Protein 5.5 L (6.7-8.2) g/dL Albumin 2.3 L (3.2-5.5) g/dL Globulin 3.2 (2.1-4.2) g/dL Albumin/Globulin Ratio 0.7 L (1.0-2.2) Lipase 34 (22-51) U/L Urine RBC (0-5) /HPF Urine WBC (0-3) /HPF Ur Squamous Epith Cells (<= Few) Urine Bacteria (None Seen) /HPF Urine Culture Comments Nasal Screen MRSA (PCR) (NEGATIVE) Ethyl Alcohol < 5.0 mg/dL Blood Type Antibody Screen - Diagnostic Imaging Diagnostic Imaging Comments: Scrotal Ultrasound 15APR - large left inguinal hernia. limited visualization of both testicles is grossly unremarkable. Renal US 15APR - Bilateral hydronephrosis, cystic right renal mass. CXR 15APR - increased density of both lungs. this is vascular vs. early infiltrate. Head CT 15APR - no acte abnormalities with limited images of the posterior fossa. Sepsis Event Note (H) - Evaluation Current Stage of Sepsis: Sepsis Possible source of Sepsis: positive: Pulmonary, Genitourinary - Sepsis Criteria Sepsis Criteria: Recorded Heart Rate greater than 90 bpm, Respiratory: Increasing oxygen requirements, WBC count greater than 12,000 or less than 4000, ACCOUNTING OFFICE MANAGER: altered consciousness (unrelated to primary neuro pathology), SBP less than 90 mmHg, Metabolic: lactate > 2 mmol/L Assessment/Plan - Problem List (1) Sepsis Impression: 88 yo M sepsis due to a urinary source with gram positive bacteremia. Improved. - Continues to be on pressors. MAP goal of 60-65 - Continue antibiotics Qualifiers: Sepsis type: sepsis due to unspecified organism Sepsis acute organ dysfunction status: with acute organ dysfunction Severe sepsis acute organ dysfunction type: acute renal failure Acute renal failure type: with acute renal cortical necrosis Severe sepsis shock status: without septic shock Qualified Code(s): A41.9 - Sepsis, unspecified organism; R65.20 - Severe sepsis without septic shock; N17.1 - Acute kidney failure with acute cortical necrosis (2) Bacteremia Impression: 88 yo M with gram positive bacteremia in the setting of sepsis due to urinary source. - Pending further details of bacteria. - Continue cefepime, pressors. - DISCONTINUE levofloxacin. (3) Catheter-associated urinary tract infection Impression: 88 yo M with urinary tract infection due to chronic indwelling solomon catheter, likely due to history of BPH and urinary retention. - Continue solomon catheter, changed at admission. Qualifiers: Indwelling urinary catheter type: indwelling urethral catheter Encounter type: initial encounter Qualified Code(s): T83.511A - Infection and inflammatory reaction due to indwelling urethral catheter, initial encounter; N39.0 - Urinary tract infection, site not specified (4) Atrial fibrillation with RVR Impression: 88 yo M with atrial fibrillation with RVR in the setting of sepsis requiring pressors. Goal HR <110. - Continue dilt drip - Continue metoprolol PO (5) Acute renal failure (ARF) Impression: 88 yo M with acute renal failure due to sepsis. - continue sepsis treatment. - daily BMP to monitor improvement. 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 Monitor. (7) Renal cyst Impression: 88 yo M found to have right renal numerous cystic cavities measuring 7.7 x 5.6 x 9.7cm.
[2019-08-20] MEDS: POTASSIUM CHLOR 10 MEQ/100 ML 10 MEQ/100 ML BAG IV SCH ×3 (13:14→15:18)
[2019-08-20] MEDS ORDERED: FAMOTIDINE 20 MG/2 ML SYRINGE IVP SCH (15:00)
[2019-08-20] MEDS ORDERED: METOPROLOL SUCCINATE 50 MG TABLET PO ONE ×2 (16:30→17:00)
[2019-08-20 19:05] LABS: CALCIUM 6.5 mg/dL (8.5-10.3)
[2019-08-20] MEDS ORDERED: POTASSIUM CHLOR 10 MEQ/100 ML 10 MEQ/100 ML BAG IV ONE ×2 (19:29→20:35)
[2019-08-20] MEDS: D5.45NS W/20 MEQ KCL 1,000 ML IV SCH (19:46)
[2019-08-20] MEDS: ENOXAPARIN 40 MG/0.4 ML SYRINGE SUBQ SCH (20:54)
[2019-08-20] MEDS: FAMOTIDINE 20 MG/2 ML SYRINGE IVP SCH (20:54)
[2019-08-21 05:23] LABS: BASOPHILS % (AUTO) 0.2 %; EOSINOPHILS # (AUTO) 0.1 10^3/uL (0.0-0.7); EOSINOPHILS % (AUTO) 0.4 %; HGB - HEMOGLOBIN 11.3 g/dL (14.0-18.0); LYMPHOCYTES # (AUTO) 0.8 10^3/uL (1.5-3.5); LYMPHOCYTES % (AUTO) 6.5 %; MEAN CORPUSCULAR HEMOGLOBIN 31.3 pg (27.0-31.0); MEAN CORPUSCULAR HGB CONC 33.1 g/dL (32.0-36.0); MEAN CORPUSCULAR VOLUME 94.5 fL (80.0-94.0); MEAN PLATELET VOLUME 11.5 fL (7.4-11.4); MONOCYTES # (AUTO) 0.5 10^3/uL (0.0-1.0); MONOCYTES % (AUTO) 3.6 %; NEUTROPHILS # (AUTO) 11.5 10^3/uL (1.5-6.6); NEUTROPHILS % (AUTO) 88.5 %; PLT - PLATELET COUNT 185 10^3/uL (130-450); RED BLOOD COUNT 3.61 10^6/uL (4.70-6.10); RED CELL DISTRIBUTION WIDTH 13.8 % (12.0-15.0)
[2019-08-21 05:43] LABS: CALCIUM 6.9 mg/dL (8.5-10.3); CREATININE 2.5 mg/dL (0.6-1.2)
[2019-08-21] MEDS ORDERED: POTASSIUM CHLOR 10 MEQ/100 ML 10 MEQ/100 ML BAG IV ONE ×4 (05:53→09:00)
[2019-08-21] MEDS: SODIUM CHLORIDE FLUSH 0.9% 10 ML SYRINGE IVP SCH ×3 (05:56→17:58)
[2019-08-21] MEDS ORDERED: CALCIUM GLUCONATE 1,000 MG in SODIUM CHLORIDE 0.9% 50 ML IV ONE (05:58)
[2019-08-21] MEDS: DILTIAZEM 125 MG in DEXTROSE 5% 100 ML IV SCH (06:46)
[2019-08-21] MEDS ORDERED: SODIUM CHLORIDE 0.9% 500 ML IV ONE (07:46)
--- NOTE | 2019-08-21 07:48 | PROVIDER PROGRESS NOTE ---
Assessment/Plan - Problem List (1) Sepsis Qualifiers: Sepsis type: sepsis due to unspecified organism Sepsis acute organ dysfunction status: with acute organ dysfunction Severe sepsis acute organ dysfunction type: acute renal failure Acute renal failure type: with acute renal cortical necrosis Severe sepsis shock status: without septic shock Qualified Code(s): A41.9 - Sepsis, unspecified organism; R65.20 - Severe sepsis without septic shock; N17.1 - Acute kidney failure with acute cortical necrosis Assessment/Plan: Preliminary suggests blood culture results Staph epidermidis. Patient also had gram-positive cocci and urine cultures Patient is on cefepime. Will continue. White blood cell count improved from 29.4 to19.1 and currently 13 Patient's systolic blood pressure has mainly been in the 90s however his map has been greater than 65. Patient is off Levophed. (2) Bacteremia Assessment/Plan: Due to Staph epidermidis. On cefepime. We will continue current treatment (3) Catheter-associated urinary tract infection Qualifiers: Indwelling urinary catheter type: indwelling urethral catheter Encounter type: initial encounter Qualified Code(s): T83.511A - Infection and inflammatory reaction due to indwelling urethral catheter, initial encounter; N39.0 - Urinary tract infection, site not specified Assessment/Plan: The catheter was changed at the time of admission. Patient had been seen by urology who had recommended the catheter for a month. (4) Atrial fibrillation with RVR Assessment/Plan: This is likely exacerbated by the infection. Anticipate further improvement with treatment of underlying infection.Heart rate fluctuating between 90 and 120. Patient is on diltiazem drip at 5 mg/h. Patient is on metoprolol 100 mg every 24 hours. Diltiazem 30 mg p.o. every 6 hours was added. The goal is to try to titrate and wean off the diltiazem drip. If patient systolic blood pressure continues to be very low, will consider digoxin. Patient's INR is 1.7. We will continue to hold Coumadin in light of hematuria (5) Acute renal failure (ARF) Assessment/Plan: Could be multifactorial secondary to sepsis related to UTI and possibly renal cyst Patient is on cefepime. Will continue. Renal function has steadily been improving. GFR at admission was 20. Today is 27. Initial creatinine at admission was 3.0. Today it is 2.3. Patient having adequate urine output - Current Meds Current Meds: Current Medications Generic Name Dose Route Start Last Admin Trade Name Freq PRN Reason Stop Dose Admin Enoxaparin Sodium 40 mg 08/19/19 22:05 08/20/19 20:54 Lovenox SUBQ 40 mg QPM GLORIA Administration Famotidine 20 mg 08/20/19 21:00 08/20/19 20:54 Pepcid IVP 20 mg QPM GLORIA Administration Norepinephrine Bitartrate 8 mg 250 mls @ 15 mls/hr 08/19/19 16:00 08/21/19 04:09 / Dextrose IV Not Given .[id number] GLORIA Protocol 8 MCG/MIN Diltiazem HCl 125 mg/ Dextrose 125 mls @ 5 mls/hr 08/19/19 20:00 08/21/19 06:46 IV 10 mg/hr .Q25H GLORIA 10 mls/hr Administration Protocol 5 MG/HR Cefepime HCl 1 gm/ Sodium 100 mls @ 200 mls/hr 08/20/19 09:00 08/20/19 09:40 Chloride IV Infused DAILY GLORIA Infusion Potassium Chloride/Dextrose/Sod Cl 1,000 mls @ 75 mls/hr 08/20/19 20:00 08/20/19 19:46 D5.45ns W/20 Meq Kcl IV 75 mls/hr .[id number] GLORIA Administration Metoprolol Tartrate 5 mg 08/19/19 21:44 08/20/19 11:59 Lopressor Inj IVP 5 mg Q2HR PRN Administration Tachycardia Multi-Ingredient Ointment 1 applic 08/19/19 15:19 08/19/19 16:16 Zinc Oxide TOP 1 applic PRN PRN Administration Skin Care Polyethylene Glycol 17 gm 08/20/19 09:00 08/20/19 09:18 Miralax PO Not Given DAILY GLORIA Sodium Chloride 10 ml 08/19/19 17:00 08/21/19 05:56 Normal Saline Flush 0.9% IVP Not Given 0100,0900,1700 GLORIA - Lab Result Fish Bone Diagrams: 08/21/19 04:25 08/21/19 12:00 - Additional Planning My Orders: My Active Orders 08/21/19 PT WITH INR [COAG] Stat 08/21/19 07:34 MAGNESIUM [CHEM] Stat 08/21/19 07:46 0.9% NS 500ML BOLUS X1 Sodium Chloride 0.9% [Normal Saline 0.9%] 500 ml IV ONCE 08/21/19 08:00 diltiaZEM [Cardizem] 30 mg PO Q6HR 08/22/19 05:00 MAGNESIUM [CHEM] DAILYLAB 08/23/19 05:00 MAGNESIUM [CHEM] DAILYLAB 08/24/19 05:00 MAGNESIUM [CHEM] DAILYLAB Subjective - Subjective Patient Reports: Other (Patient seen and examined this morning. He was resting comfortably in bed at time of exam. He denied any significant complaints. He appears to have a very sluggish affect. He denied chest pain, abdominal pain, dyspnea, nausea, vomiting, fever or chills. His blood pressure has been in the lower end of normal. His heart rate has been fluctuating between 90 and 120. On examination he has a 3+ pitting edema in his feet only. He tolerated his breakfast. The rest of his history is unremarkable) Objective Vital Signs: Vital Signs - 24 hr 08/20/19 08/20/19 08/20/19 08:00 08:45 09:00 Temperature 36.1 C L 36.0 C L Heart Rate Heart Rate [ 121 H 127 H 77 Monitoring electrodes] Respiratory 23 16 19 Rate Blood Pressure Blood Pressure 82/65 L 96/65 96/68 [Right Brachial artery] O2 Saturation 98 100 08/20/19 08/20/19 08/20/19 09:23 10:00 11:00 Temperature 35.9 C L 35.7 C L Heart Rate Heart Rate [ 120 H 115 H 123 H Monitoring electrodes] Respiratory 19 21 17 Rate Blood Pressure Blood Pressure 93/63 91/62 84/52 L [Right Brachial artery] O2 Saturation 100 100 100 08/20/19 08/20/19 08/20/19 11:29 11:59 12:00 Temperature 35.7 C L 35.6 C L Heart Rate 123 H Heart Rate [ 117 H Monitoring electrodes] Respiratory 15 15 Rate Blood Pressure 95/52 L Blood Pressure 72/38 L [Right Brachial artery] O2 Saturation 100 100 08/20/19 08/20/19 08/20/19 12:29 13:00 13:30 Temperature 35.6 C L 35.6 C L Heart Rate Heart Rate [ 108 H 107 H Monitoring electrodes] Respiratory 16 13 Rate Blood Pressure 82/57 L Blood Pressure 87/67 L 94/66 [Right Brachial artery] O2 Saturation 100 08/20/19 08/20/19 08/20/19 14:00 14:30 15:00 Temperature 35.6 C L 35.9 C L 35.8 C L Heart Rate Heart Rate [ 114 H 111 H 106 H Monitoring electrodes] Respiratory 19 14 18 Rate Blood Pressure Blood Pressure 88/51 L 82/65 L 75/64 L [Right Brachial artery] O2 Saturation 100 99 99 08/20/19 08/20/19 08/20/19 15:30 16:00 16:36 Temperature 35.9 C L 35.9 C L Heart Rate Heart Rate [ 108 H 118 H 122 H Monitoring electrodes] Respiratory 18 18 19 Rate Blood Pressure Blood Pressure 76/57 L 74/59 L 85/58 L [Right Brachial artery] O2 Saturation 99 99 100 08/20/19 08/20/19 08/20/19 17:00 17:30 18:00 Temperature 35.9 C L Heart Rate Heart Rate [ 115 H 124 H 103 H Monitoring electrodes] Respiratory 19 24 20 Rate Blood Pressure Blood Pressure 85/68 L 80/64 L 87/53 L [Right Brachial artery] O2 Saturation 99 97 98 08/20/19 08/20/19 08/20/19 19:00 20:00 21:00 Temperature 36.2 C L 36.4 C L 36.4 C L Heart Rate Heart Rate [ 120 H 105 H 117 H Monitoring electrodes] Respiratory 15 18 22 Rate Blood Pressure Blood Pressure 97/81 H 103/61 87/72 L [Right Brachial artery] O2 Saturation 977 H 100 100 08/20/19 08/20/19 08/21/19 22:00 23:00 00:00 Temperature 36.5 C 36.5 C 36.3 C L Heart Rate Heart Rate [ 123 H 118 H 111 H Monitoring electrodes] Respiratory 24 20 21 Rate Blood Pressure Blood Pressure 86/56 L 101/75 90/67 [Right Brachial artery] O2 Saturation 99 100 08/21/19 08/21/19 08/21/19 01:00 02:00 03:00 Temperature 36.4 C L 36.3 C L 36.3 C L Heart Rate Heart Rate [ 112 H 108 H 105 H Monitoring electrodes] Respiratory 20 23 16 Rate Blood Pressure Blood Pressure 104/76 95/75 94/64 [Right Brachial artery] O2 Saturation 100 98 04/17/20 04/17/20 04/17/20 04:00 05:00 06:00 Temperature 36.2 C L 36.2 C L 36.2 C L Heart Rate Heart Rate [ 90 113 H 117 H Monitoring electrodes] Respiratory 19 18 18 Rate Blood Pressure Blood Pressure 103/69 85/70 L 75/63 L [Right Brachial artery] O2 Saturation 99 08/21/19 07:00 Temperature 36.1 C L Heart Rate Heart Rate [ 96 Monitoring electrodes] Respiratory 16 Rate Blood Pressure Blood Pressure 91/68 [Right Brachial artery] O2 Saturation Oxygen O2 Source Room air I&O (Last 24 Hrs): Intake and Output Totals x24h 08/19/19 08/20/19 08/21/19 23:59 23:59 23:59 Intake Total 2406.750 2531.584 Output Total 2851 2762 1960 Balance -448.250 -200.416 -1960 General: Alert, Oriented x3, No acute distress HEENT: Atraumatic, PERRLA, EOMI Neck: Supple, No JVD Neuro: Alert, Oriented Times 3 Cardiovascular: Other (Afib) Respiratory: Chest non-tender, No respiratory distress, Wheezes (mild) Abdomen: Normal bowel sounds, Soft, No tenderness Extremities: No clubbing, No cyanosis Skin: No rashes - Results Results: Laboratory Results WBC 13.0 x10^3/uL (4.8-10.8) H 08/21/19 04:25 RBC 3.61 10^6/uL (4.70-6.10) L 08/21/19 04:25 Hgb 11.3 g/dL (14.0-18.0) L 08/21/19 04:25 Hct 34.1 % (42.0-52.0) L 08/21/19 04:25 MCV 94.5 fL (80.0-94.0) H 08/21/19 04:25 MCH 31.3 pg (27.0-31.0) H 08/21/19 04:25 MCHC 33.1 g/dL (32.0-36.0) 08/21/19 04:25 RDW 13.8 % (12.0-15.0) 08/21/19 04:25 Plt Count 185 10^3/uL (130-450) 08/21/19 04:25 MPV 11.5 fL (7.4-11.4) H 08/21/19 04:25 Neut # (Auto) 11.5 10^3/uL (1.5-6.6) H 08/21/19 04:25 Lymph # (Auto) 0.8 10^3/uL (1.5-3.5) L 08/21/19 04:25 [place] # (Auto) 0.5 10^3/uL (0.0-1.0) 08/21/19 04:25 Eos # (Auto) 0.1 10^3/uL (0.0-0.7) 08/21/19 04:25 Baso # (Auto) 0.0 10^3/uL (0.0-0.1) 08/21/19 04:25 Absolute Nucleated RBC 0.00 x10^3/uL 08/21/19 04:25 Total Counted 100 08/19/19 10:14 Band Neuts % (Manual) 6 % (0-10) 08/19/19 10:14 Abnorm Lymph % (Manual) 0 % 08/19/19 10:14 Nucleated RBC % 0.0 /100WBC 08/21/19 04:25 Neutrophils # (Manual) 29.4 10^3/uL (1.5-6.6) H 08/19/19 10:14 Lymphocytes # (Manual) 0.0 10^3/uL (1.5-3.5) L 08/19/19 10:14 Monocytes # (Manual) 0.0 10^3/uL (0.0-1.0) 08/19/19 10:14 Eosinophils # (Manual) 0.0 10^3/uL (0-0.7) 08/19/19 10:14 Basophils # (Manual) 0.0 10^3/uL (0-0.1) 08/19/19 10:14 Differential Comment MANUAL DIFFERENTIAL 08/19/19 10:14 Manual Slide Review Indicated 08/19/19 10:14 PT 21.6 secs (9.9-12.6) H 08/20/19 06:55 INR 2.0 (0.8-1.2) H 08/20/19 06:55 APTT 32.2 secs (24.9-33.3) 08/20/19 04:30 Sodium 140 mmol/L (135-145) 08/21/19 04:25 Potassium 2.2 mmol/L (3.5-5.0) L* 08/21/19 04:25 Chloride 115 mmol/L (101-111) H 08/21/19 04:25 Carbon Dioxide 15 mmol/L (21-32) L 08/21/19 04:25 Anion Gap 10.0 (6-13) 08/21/19 04:25 BUN 96 mg/dL (6-20) H* 08/21/19 04:25 Creatinine 2.5 mg/dL (0.6-1.2) H 08/21/19 04:25 Estimated GFR (MDRD) 24 (>89) L 08/21/19 04:25 Glucose 115 mg/dL (70-100) H 08/21/19 04:25 Lactic Acid 1.6 mmol/L (0.5-2.2) 08/20/19 04:30 Calcium 6.9 mg/dL (8.5-10.3) L 08/21/19 04:25 Total Bilirubin 0.7 mg/dL (0.2-1.0) 08/20/19 04:30 AST 24 IU/L (10-42) 08/20/19 04:30 ALT 24 IU/L (10-60) 08/20/19 04:30 Alkaline Phosphatase 77 IU/L (42-121) 08/20/19 04:30 Total Creatine Kinase 51 IU/L (22-269) 08/19/19 08:38 Troponin I High Sens 14.0 ng/L (2.3-19.7) 08/19/19 18:14 Total Protein 5.1 g/dL (6.7-8.2) L 08/20/19 04:30 Albumin 2.1 g/dL (3.2-5.5) L 08/20/19 04:30 Globulin 3.0 g/dL (2.1-4.2) 08/20/19 04:30 Albumin/Globulin Ratio 0.7 (1.0-2.2) L 08/20/19 04:30 Lipase 34 U/L (22-51) 08/19/19 08:38 Urine Color RED/BLOODY 08/19/19 08:41 Urine Clarity CLOUDY (CLEAR) 08/19/19 08:41 Urine pH 8.5 PH (5.0-7.5) H 08/19/19 08:41 Ur Specific [place] 1.010 (1.002-1.030) 08/19/19 08:41 Urine Protein 100 mg/dL (NEGATIVE) H 08/19/19 08:41 Urine Glucose (UA) NEGATIVE mg/dL (NEGATIVE) 08/19/19 08:41 Urine Ketones NEGATIVE mg/dL (NEGATIVE) 08/19/19 08:41 Urine Occult Blood LARGE (NEGATIVE) H 08/19/19 08:41 Urine Nitrite POSITIVE (NEGATIVE) H 08/19/19 08:41 Urine Bilirubin NEGATIVE (NEGATIVE) 08/19/19 08:41 Urine Urobilinogen 0.2 (NORMAL) E.U./dL (NORMAL) 08/19/19 08:41 Ur Leukocyte Esterase LARGE (NEGATIVE) H 08/19/19 08:41 Urine RBC TNTC /HPF (0-5) H 08/19/19 08:41 Urine WBC >25 /HPF (0-3) H 08/19/19 08:41 Ur Squamous Epith Cells NONE SEEN (<= Few) 08/19/19 08:41 Urine Bacteria Few /HPF (None Seen) 08/19/19 08:41 Ur Microscopic Review INDICATED 08/19/19 08:41 Urine Culture Comments INDICATED 08/19/19 08:41 Nasal Screen MRSA (PCR) NEGATIVE (NEGATIVE) 08/19/19 13:08 Ethyl Alcohol < 5.0 mg/dL 08/19/19 08:38 Coronavirus (PCR) NEGATIVE 08/19/19 12:10 Blood Type O NEGATIVE 08/20/19 04:30 Blood Type Recheck O NEGATIVE 08/20/19 06:55 Antibody Screen NEGATIVE 08/20/19 04:30 Sepsis Event Note (H) - Evaluation Current Stage of Sepsis: Sepsis Possible source of Sepsis: positive: Pulmonary, Genitourinary - Sepsis Criteria Sepsis Criteria: Recorded Heart Rate greater than 90 bpm, Respiratory: Increasing oxygen requirements, WBC count greater than 12,000 or less than 4000, FLOOR HELPER: altered consciousness (unrelated to primary neuro pathology), SBP less than 90 mmHg, Metabolic: lactate > 2 mmol/L ABX Reporting Has patient been on IV antibiotics over the past 48 hours?: Yes
[2019-08-21 08:06] LABS: INR 1.7 (0.8-1.2); PT - PROTHROMBIN TIME 18.4 secs (9.9-12.6)
[2019-08-21] MEDS: diltiaZEM 30 MG TABLET PO SCH ×3 (08:37→17:58)
[2019-08-21] MEDS: CEFEPIME 1 GM in SODIUM CHLORIDE 0.9% MINIBAG 100 ML IV SCH (09:07)
[2019-08-21] MEDS: METOPROLOL SUCCINATE 50 MG TABLET PO SCH (09:16)
[2019-08-21] MEDS: polyethylene glycoL 3350 17 GM PACKET PO SCH (09:22)
[2019-08-21] MEDS: MIN OIL/DIMETHICON/COCONUT OIL 92 GM TUBE TOP PRN ×2 (10:54→14:49)
[2019-08-21 12:23] LABS: CREATININE 2.3 mg/dL (0.6-1.2)
[2019-08-21] MEDS: D5.45NS W/20 MEQ KCL 1,000 ML IV SCH (15:09)
[2019-08-21] MEDS: MULTIVITAMIN W/MINERALS TABLET PO SCH (15:41)
[2019-08-21] MEDS ORDERED: METOPROLOL SUCCINATE 50 MG TABLET PO ONE (16:30)
[2019-08-21] MEDS ORDERED: POTASSIUM CHLORIDE 20 MEQ TABLET PO ONE (18:36)
[2019-08-21] MEDS: POTASSIUM CHLOR 10 MEQ/100 ML 10 MEQ/100 ML BAG IV SCH ×4 (18:52→22:18)
[2019-08-21] MEDS: ENOXAPARIN 40 MG/0.4 ML SYRINGE SUBQ SCH (21:24)
[2019-08-21] MEDS: FAMOTIDINE 20 MG/2 ML SYRINGE IVP SCH (21:25)
[2019-08-22] MEDS: diltiaZEM 30 MG TABLET PO SCH ×2 (00:04→06:38)
[2019-08-22 06:27] LABS: BASOPHILS % (AUTO) 0.2 %; EOSINOPHILS # (AUTO) 0.1 10^3/uL (0.0-0.7); EOSINOPHILS % (AUTO) 0.6 %; HGB - HEMOGLOBIN 12.5 g/dL (14.0-18.0); LYMPHOCYTES # (AUTO) 1.2 10^3/uL (1.5-3.5); LYMPHOCYTES % (AUTO) 8.4 %; MEAN CORPUSCULAR HEMOGLOBIN 31.6 pg (27.0-31.0); MEAN CORPUSCULAR HGB CONC 32.5 g/dL (32.0-36.0); MEAN CORPUSCULAR VOLUME 97.5 fL (80.0-94.0); MEAN PLATELET VOLUME 11.3 fL (7.4-11.4); MONOCYTES # (AUTO) 0.6 10^3/uL (0.0-1.0); NEUTROPHILS # (AUTO) 12.5 10^3/uL (1.5-6.6); NEUTROPHILS % (AUTO) 85.9 %; PLT - PLATELET COUNT 170 10^3/uL (130-450); RED BLOOD COUNT 3.95 10^6/uL (4.70-6.10); RED CELL DISTRIBUTION WIDTH 14.2 % (12.0-15.0); WHITE BLOOD COUNT 14.5 x10^3/uL (4.8-10.8)
[2019-08-22 06:37] LABS: CALCIUM 6.9 mg/dL (8.5-10.3); CREATININE 1.9 mg/dL (0.6-1.2); MAGNESIUM 1.7 mg/dL (1.7-2.8)
[2019-08-22] MEDS: SODIUM CHLORIDE FLUSH 0.9% 10 ML SYRINGE IVP SCH ×3 (06:39→18:08)
[2019-08-22] MEDS ORDERED: POTASSIUM CHLORIDE 20 MEQ TABLET PO ONE (08:00)
[2019-08-22] MEDS ORDERED: levoFLOXacin 500 MG/100 ML 500 MG/100 ML BAG IV SCH (08:00)
[2019-08-22] MEDS: MULTIVITAMIN W/MINERALS TABLET PO SCH (08:02)
[2019-08-22] MEDS: METOPROLOL SUCCINATE 50 MG TABLET PO SCH (08:03)
[2019-08-22] MEDS: D5.45NS W/20 MEQ KCL 1,000 ML IV SCH (08:33)
--- NOTE | 2019-08-22 08:38 | PROVIDER PROGRESS NOTE ---
Assessment/Plan - Problem List (1) Sepsis Qualifiers: Sepsis type: sepsis due to unspecified organism Sepsis acute organ dysfunction status: with acute organ dysfunction Severe sepsis acute organ dysfunction type: acute renal failure Acute renal failure type: with acute renal cortical necrosis Severe sepsis shock status: without septic shock Qualified Code(s): A41.9 - Sepsis, unspecified organism; R65.20 - Severe sepsis without septic shock; N17.1 - Acute kidney failure with acute cortical necrosis Assessment/Plan: His antibiotic was switched from cefepime to Zosyn today. This is because a chest x-ray obtained as a result of wheezing today suggested bibasilar infiltrate. We will order a swallow evaluation on Saturday. Patient's blood cultures have grown Staph epidermidis. Urine cultures have also been positive for gram-positive cocci. A central line was placed today in anticipation of potential hypotension Necessitating pressor support (3) Catheter-associated urinary tract infection Qualifiers: Indwelling urinary catheter type: indwelling urethral catheter Encounter type: initial encounter Qualified Code(s): T83.511A - Infection and inflammatory reaction due to indwelling urethral catheter, initial encounter; N39.0 - Urinary tract infection, site not specified Assessment/Plan: Patient currently on Zosyn (4) Atrial fibrillation with RVR Assessment/Plan: Patient's oral Cardizem was increased to 60 mg's p.o. 4 times daily. Patient has been weaned off IV diltiazem. Will resume if warranted. We will continue metoprolol 100 mg every 24 hours. Patient's Eliquis was resumed today. (5) Acute renal failure (ARF) Assessment/Plan: Patient's renal function continues to improve. His GFR today was 34. His creatinine was 1.9 (6) Scrotal hernia Assessment/Plan: Dr. Estrada with general surgery was consulted for concern of increasing size of scrotal hernia. She was able to reduce the hernia at bedside. She advised that as a result of the size it was likely to recur. However given that the patient is not having any pain, no acute intervention was warranted. We will continue to monitor hernia. (7) Hematuria Qualifiers: Hematuria type: gross Qualified Code(s): R31.0 - Gross hematuria Assessment/Plan: Improved/resolved. Patient has an indwelling Kemp catheter. Plan would be to have patient follow-up with urology upon discharge. - Current Meds Current Meds: Current Medications Generic Name Dose Route Start Last Admin Trade Name Freq PRN Reason Stop Dose Admin Diltiazem HCl 30 mg 08/21/19 08:00 08/22/19 06:38 Cardizem PO 30 mg Q6HR GLORIA Administration Enoxaparin Sodium 40 mg 08/19/19 22:05 08/21/19 21:24 Lovenox SUBQ 40 mg QPM GLORIA Administration Famotidine 20 mg 08/20/19 21:00 08/21/19 21:25 Pepcid IVP 20 mg QPM GLORIA Administration Norepinephrine Bitartrate 8 mg 250 mls @ 15 mls/hr 08/19/19 16:00 08/21/19 18:08 / Dextrose IV Infused .[id number] GLORIA Titration Protocol 8 MCG/MIN Diltiazem HCl 125 mg/ Dextrose 125 mls @ 5 mls/hr 08/19/19 20:00 08/21/19 13:01 IV 0 mg/hr .Q25H GLORIA 0 mls/hr Titration Protocol 5 MG/HR Cefepime HCl 1 gm/ Sodium 100 mls @ 200 mls/hr 08/20/19 09:00 08/21/19 10:10 Chloride IV Infused DAILY GLORIA Infusion Potassium Chloride/Dextrose/Sod Cl 1,000 mls @ 75 mls/hr 08/20/19 20:00 08/22/19 08:33 D5.45ns W/20 Meq Kcl IV 75 mls/hr .[id number] GLORIA Administration Metoprolol Succinate 100 mg 08/21/19 09:00 08/22/19 08:03 Toprol Xl PO 100 mg DAILY GLOIRA Administration Metoprolol Tartrate 5 mg 08/19/19 21:44 08/20/19 11:59 Lopressor Inj IVP 5 mg Q2HR PRN Administration Tachycardia Mineral Oil 1 applic 08/19/19 15:19 08/21/19 14:49 Cavilon TOP 1 applic PRN PRN Administration Skin Care Multi-Ingredient Ointment 1 applic 08/19/19 15:19 08/19/19 16:16 Zinc Oxide TOP 1 applic PRN PRN Administration Skin Care Multivitamins/Minerals 1 tab 08/21/19 14:00 08/22/19 08:02 Theragran M PO 1 tab DAILYWM GLORIA Administration Polyethylene Glycol 17 gm 04/16/20 09:00 08/21/19 09:22 Miralax PO 17 gm DAILY GLORIA Administration Sodium Chloride 10 ml 08/19/19 17:00 08/22/19 06:39 Normal Saline Flush 0.9% IVP Not Given 0100,0900,1700 GLORIA - Lab Result Fish Bone Diagrams: 08/22/19 06:24 08/22/19 06:24 - Additional Planning Condition/Complexity: Guarded My Orders: My Active Orders 08/21/19 08:00 diltiaZEM [Cardizem] 30 mg PO Q6HR 08/21/19 14:00 Multivitamin W/Minerals [Theragran M] 1 tab PO DAILYWM 08/23/19 05:00 BMP - BASIC METABOLIC PANEL [CHEM] DAILYLAB CBC - COMP BLD CT W/AUTO DIFF [HEME] DAILYLAB MAGNESIUM [CHEM] DAILYLAB 08/24/19 05:00 BMP - BASIC METABOLIC PANEL [CHEM] DAILYLAB CBC - COMP BLD CT W/AUTO DIFF [HEME] DAILYLAB MAGNESIUM [CHEM] DAILYLAB 08/25/19 05:00 BMP - BASIC METABOLIC PANEL [CHEM] DAILYLAB CBC - COMP BLD CT W/AUTO DIFF [HEME] DAILYLAB 08/26/19 05:00 BMP - BASIC METABOLIC PANEL [CHEM] DAILYLAB CBC - COMP BLD CT W/AUTO DIFF [HEME] DAILYLAB Consult/Specialty: Surgery Plan Discussed with:: Patient Time Spent: 15-30 minutes Subjective - Subjective Patient Reports: Other (Patient seen and examined this morning. He was awake and appeared to be resting comfortably in bed at time of the exam. Just prior to his exam it was brought to my attention that the patient was wheezing and somewhat hypoxic. On examination wheezing was appreciable. Subjectively he denied any symptoms of dyspnea. He denied chest pain, abdominal pain, nausea or vomiting. I appreciated his aforementioned left inguinal hernia. It was mentioned by nursing staff that at the same larger in size than few days before. Bowel sounds could be appreciated in the hernia. The patient denied any pain in the area. The rest of his history is unremarkable) Objective Vital Signs: Vital Signs - 24 hr 08/21/19 08/21/19 08/21/19 09:00 10:00 11:00 Temperature 36.0 C L 36 C L 36.2 C L Heart Rate [ 119 H 119 H 110 H Monitoring electrodes] Respiratory 21 23 18 Rate Blood Pressure Blood Pressure [Left Brachial artery] Blood Pressure 105/61 94/72 91/61 [Right Brachial artery] O2 Saturation 92 100 08/21/19 08/21/19 08/21/19 12:00 13:00 13:13 Temperature 36.4 C L 36.5 C Heart Rate [ 104 H 107 H Monitoring electrodes] Respiratory 16 18 Rate Blood Pressure 95/70 Blood Pressure 95/70 [Left Brachial artery] Blood Pressure 87/56 L [Right Brachial artery] O2 Saturation 100 100 08/21/19 08/21/19 08/21/19 14:00 15:00 16:00 Temperature 36.3 C L 36.4 C L 36.4 C L Heart Rate [ 100 97 105 H Monitoring electrodes] Respiratory 22 17 19 Rate Blood Pressure Blood Pressure 93/54 L 100/68 98/75 [Left Brachial artery] Blood Pressure [Right Brachial artery] O2 Saturation 96 08/21/19 08/21/19 08/21/19 17:00 17:58 18:00 Temperature 36.6 C 36.8 C Heart Rate [ 96 106 H Monitoring electrodes] Respiratory 17 21 Rate Blood Pressure 106/83 H Blood Pressure 106/83 H 99/68 [Left Brachial artery] Blood Pressure [Right Brachial artery] O2 Saturation 92 08/21/19 08/21/19 08/21/19 19:00 20:00 21:00 Temperature 37 C 37.1 C 37 C Heart Rate [ 94 99 105 H Monitoring electrodes] Respiratory 23 20 24 Rate Blood Pressure Blood Pressure 106/76 95/69 115/69 [Left Brachial artery] Blood Pressure [Right Brachial artery] O2 Saturation 99 99 08/21/19 08/21/19 08/22/19 22:00 23:00 00:00 Temperature 37.2 C 37.1 C 37.0 C Heart Rate [ 105 H 114 H 109 H Monitoring electrodes] Respiratory 21 23 21 Rate Blood Pressure Blood Pressure 94/64 109/68 104/76 [Left Brachial artery] Blood Pressure [Right Brachial artery] O2 Saturation 98 100 97 08/22/19 08/22/19 08/22/19 00:04 01:00 02:00 Temperature 37.0 C 36.9 C Heart Rate [ 120 H 114 H Monitoring electrodes] Respiratory 21 20 Rate Blood Pressure 104/76 Blood Pressure 110/83 H 101/84 H [Left Brachial artery] Blood Pressure [Right Brachial artery] O2 Saturation 99 98 08/22/19 08/22/19 08/22/19 03:00 04:00 05:00 Temperature 36.9 C 36.9 C 36.9 C Heart Rate [ 117 H 115 H 118 H Monitoring electrodes] Respiratory 18 19 19 Rate Blood Pressure Blood Pressure 106/68 109/81 H 100/74 [Left Brachial artery] Blood Pressure [Right Brachial artery] O2 Saturation 97 99 08/22/19 08/22/19 08/22/19 06:00 06:38 07:00 Temperature 36.9 C 36.9 C Heart Rate [ 113 H 110 H Monitoring electrodes] Respiratory 19 17 Rate Blood Pressure 108/80 Blood Pressure 108/80 106/78 [Left Brachial artery] Blood Pressure [Right Brachial artery] O2 Saturation 98 08/22/19 08:00 Temperature 36.9 C Heart Rate [ 108 H Monitoring electrodes] Respiratory 18 Rate Blood Pressure Blood Pressure 102/69 [Left Brachial artery] Blood Pressure [Right Brachial artery] O2 Saturation Oxygen O2 Source Room air I&O (Last 24 Hrs): Intake and Output Totals x24h 08/20/19 08/21/19 08/22/19 23:59 23:59 23:59 Intake Total 2531.584 5399.916 1237.5 Output Total 2732 3575 1115 Balance -320.217 5918.916 122.5 General: Alert, Other (oriented X2) HEENT: Atraumatic, PERRLA, EOMI Neck: Supple, No JVD Neuro: Alert Cardiovascular: Other (irregularly irregular) Respiratory: Wheezes Abdomen: Normal bowel sounds, Soft Genitourinary: Inguinal Hernia (left, large) Extremities: Other (3+ EDEMA IN HIS FEET BILATERALLY) Skin: No rashes - Results Results: Laboratory Results WBC 14.5 x10^3/uL (4.8-10.8) H 08/22/19 06:24 RBC 3.95 10^6/uL (4.70-6.10) L 08/22/19 06:24 Hgb 12.5 g/dL (14.0-18.0) L 08/22/19 06:24 Hct 38.5 % (42.0-52.0) L 08/22/19 06:24 MCV 97.5 fL (80.0-94.0) H 08/22/19 06:24 MCH 31.6 pg (27.0-31.0) H 08/22/19 06:24 MCHC 32.5 g/dL (32.0-36.0) 08/22/19 06:24 RDW 14.2 % (12.0-15.0) 08/22/19 06:24 Plt Count 170 10^3/uL (130-450) 08/22/19 06:24 MPV 11.3 fL (7.4-11.4) 08/22/19 06:24 Neut # (Auto) 12.5 10^3/uL (1.5-6.6) H 08/22/19 06:24 Lymph # (Auto) 1.2 10^3/uL (1.5-3.5) L 08/22/19 06:24 [place] # (Auto) 0.6 10^3/uL (0.0-1.0) 08/22/19 06:24 Eos # (Auto) 0.1 10^3/uL (0.0-0.7) 08/22/19 06:24 Baso # (Auto) 0.0 10^3/uL (0.0-0.1) 08/22/19 06:24 Absolute Nucleated RBC 0.00 x10^3/uL 08/22/19 06:24 Total Counted 100 08/19/19 10:14 Band Neuts % (Manual) 6 % (0-10) 08/19/19 10:14 Abnorm Lymph % (Manual) 0 % 08/19/19 10:14 Nucleated RBC % 0.0 /100WBC 08/22/19 06:24 Neutrophils # (Manual) 29.4 10^3/uL (1.5-6.6) H 08/19/19 10:14 Lymphocytes # (Manual) 0.0 10^3/uL (1.5-3.5) L 08/19/19 10:14 Monocytes # (Manual) 0.0 10^3/uL (0.0-1.0) 08/19/19 10:14 Eosinophils # (Manual) 0.0 10^3/uL (0-0.7) 08/19/19 10:14 Basophils # (Manual) 0.0 10^3/uL (0-0.1) 08/19/19 10:14 Differential Comment MANUAL DIFFERENTIAL 08/19/19 10:14 Manual Slide Review Indicated 08/19/19 10:14 PT 18.4 secs (9.9-12.6) H 08/21/19 07:55 INR 1.7 (0.8-1.2) H 08/21/19 07:55 APTT 32.2 secs (24.9-33.3) 08/20/19 04:30 Sodium 142 mmol/L (135-145) 08/22/19 06:24 Potassium 3.3 mmol/L (3.5-5.0) L 08/22/19 06:24 Chloride 117 mmol/L (101-111) H 08/22/19 06:24 Carbon Dioxide 16 mmol/L (21-32) L 08/22/19 06:24 Anion Gap 9.0 (6-13) 08/22/19 06:24 BUN 68 mg/dL (6-20) H 08/22/19 06:24 Creatinine 1.9 mg/dL (0.6-1.2) H 08/22/19 06:24 Estimated GFR (MDRD) 34 (>89) L 08/22/19 06:24 Glucose 127 mg/dL (70-100) H 08/22/19 06:24 Lactic Acid 1.6 mmol/L (0.5-2.2) 08/20/19 04:30 Calcium 6.9 mg/dL (8.5-10.3) L 08/22/19 06:24 Phosphorus 1.9 mg/dL (2.5-4.6) L 08/22/19 06:24 Magnesium 1.7 mg/dL (1.7-2.8) 08/22/19 06:24 Total Bilirubin 0.7 mg/dL (0.2-1.0) 08/20/19 04:30 AST 24 IU/L (10-42) 08/20/19 04:30 ALT 24 IU/L (10-60) 08/20/19 04:30 Alkaline Phosphatase 77 IU/L (42-121) 08/20/19 04:30 Total Creatine Kinase 51 IU/L (22-269) 08/19/19 08:38 Troponin I High Sens 14.0 ng/L (2.3-19.7) 08/19/19 18:14 Total Protein 5.1 g/dL (6.7-8.2) L 08/20/19 04:30 Albumin 1.9 g/dL (3.2-5.5) L 08/22/19 06:24 Globulin 3.0 g/dL (2.1-4.2) 08/20/19 04:30 Albumin/Globulin Ratio 0.7 (1.0-2.2) L 08/20/19 04:30 Lipase 34 U/L (22-51) 08/19/19 08:38 Urine Color RED/BLOODY 08/19/19 08:41 Urine Clarity CLOUDY (CLEAR) 08/19/19 08:41 Urine pH 8.5 PH (5.0-7.5) H 08/19/19 08:41 Ur Specific [place] 1.010 (1.002-1.030) 08/19/19 08:41 Urine Protein 100 mg/dL (NEGATIVE) H 08/19/19 08:41 Urine Glucose (UA) NEGATIVE mg/dL (NEGATIVE) 08/19/19 08:41 Urine Ketones NEGATIVE mg/dL (NEGATIVE) 08/19/19 08:41 Urine Occult Blood LARGE (NEGATIVE) H 08/19/19 08:41 Urine Nitrite POSITIVE (NEGATIVE) H 08/19/19 08:41 Urine Bilirubin NEGATIVE (NEGATIVE) 08/19/19 08:41 Urine Urobilinogen 0.2 (NORMAL) E.U./dL (NORMAL) 08/19/19 08:41 Ur Leukocyte Esterase LARGE (NEGATIVE) H 08/19/19 08:41 Urine RBC TNTC /HPF (0-5) H 08/19/19 08:41 Urine WBC >25 /HPF (0-3) H 08/19/19 08:41 Ur Squamous Epith Cells NONE SEEN (<= Few) 08/19/19 08:41 Urine Bacteria Few /HPF (None Seen) 08/19/19 08:41 Ur Microscopic Review INDICATED 08/19/19 08:41 Urine Culture Comments INDICATED 08/19/19 08:41 Nasal Screen MRSA (PCR) NEGATIVE (NEGATIVE) 08/19/19 13:08 Ethyl Alcohol < 5.0 mg/dL 08/19/19 08:38 Coronavirus (PCR) NEGATIVE 08/19/19 12:10 Blood Type O NEGATIVE 08/20/19 04:30 Blood Type Recheck O NEGATIVE 08/20/19 06:55 Antibody Screen NEGATIVE 08/20/19 04:30 Sepsis Event Note (H) - Evaluation Current Stage of Sepsis: Sepsis Possible source of Sepsis: positive: Pulmonary, Genitourinary - Sepsis Criteria Sepsis Criteria: Recorded Heart Rate greater than 90 bpm, Respiratory: Increasing oxygen requirements, WBC count greater than 12,000 or less than 4000, SPECIMEN TRANSPORTER: altered consciousness (unrelated to primary neuro pathology), SBP less than 90 mmHg, Metabolic: lactate > 2 mmol/L ABX Reporting Has patient been on IV antibiotics over the past 48 hours?: Yes
[2019-08-22] MEDS: CEFEPIME 1 GM in SODIUM CHLORIDE 0.9% MINIBAG 100 ML IV SCH (09:28)
[2019-08-22] MEDS ORDERED: diltiaZEM 30 MG TABLET PO STA (10:12)
[2019-08-22] MEDS ORDERED: FUROSEMIDE 40 MG/4 ML VIAL IVP STA (10:13)
--- NOTE | 2019-08-22 10:36 | XRAY Report ---
Reason: wheezing, dyspnea Procedure Date: 08/22/2019 Accession Number: [id number] / [id number] Procedure: XR - Chest 1 View X-Ray CPT Code: 54106 Final Report FULL RESULT: EXAM: CHEST RADIOGRAPHY EXAM DATE: 08/22/2019 10:28 AM. CLINICAL HISTORY: Wheezing, dyspnea. COMPARISON: CHEST 1 VIEW 08/19/2019 8:51 AM. TECHNIQUE: 1 view. FINDINGS: Lungs/Pleura: Bilateral peribronchial thickening. Left hemidiaphragm is partially obscured. Medial right basilar opacity. Diminished lung volumes. Trace pleural effusions are not excluded. Mediastinum: Atherosclerotic aortic calcification. Other: None. IMPRESSION: 1. Bilateral central airway thickening can be seen in the setting of bronchitis, acute or chronic. Reactive airways disease can have this appearance as well. 2. Bibasilar atelectasis and potential airspace disease. RADIA
[2019-08-22] MEDS: polyethylene glycoL 3350 17 GM PACKET PO SCH (10:58)
[2019-08-22] MEDS: MIN OIL/DIMETHICON/COCONUT OIL 92 GM TUBE TOP PRN ×2 (11:41→15:06)
[2019-08-22] MEDS: APIXABAN 2.5 MG TABLET PO SCH ×2 (11:45→21:16)
--- NOTE | 2019-08-22 11:47 | ANESTHESIA PROCEDURE NOTE ---
Anesth Central Line Template - Central Line Central Line Preparation: Consent Obtained (phone consent from sister Kathryn), Time out completed, Ultrasound used, Sterile prep and drape Central line location: Right IJ Central line type: Triple lumen Central line aftercare: Chlorhexidine disc placed, Secured, No complications, Pt tolerated well (Request from hospitalist for cental line placement due to inadequate peripheral access and potential need for vasoactive infusions. Consent obtained telephonically from patient's sister, due to patient suffering from dementia. RIJ central line placed via ultrasound without difficulty, utilizing full barrier protection. All ports aspirated positive blood and flushed with saline. 13cm depth at skin. Sutured in place and sterile dressing applied. Portable CXR ordered stat for line placement confirmation.)
--- NOTE | 2019-08-22 12:11 | XRAY Report ---
Reason: line placement confirmation Procedure Date: 08/22/2019 Accession Number: [id number] / [id number] Procedure: XR - Chest for Line Placement CPT Code: Final Report FULL RESULT: EXAM: CHEST RADIOGRAPHY EXAM DATE: 08/22/2019 12:00 PM. CLINICAL HISTORY: Line placement confirmation. COMPARISON: CHEST 1 VIEW 08/22/2019 10:06 AM. TECHNIQUE: 1 view. FINDINGS: Lungs/Pleura: No pneumothorax. Probable trace right pleural effusion. Mediastinum: Within exam limitations, the cardiomediastinal contour is normal. Other: Right IJ central line tip overlies the middle third of SVC. IMPRESSION: 1. Right IJ central line tip overlies the middle third of SVC. 2. Trace right pleural effusion. 3. No pneumothorax. RADIA
--- NOTE | 2019-08-22 12:45 | HISTORY & PHYSICAL EXAMINATION ---
Chief Complaint - Chief Complaint Chief Complaint: Large groin hernia Abdominal Pain HPI - History Obtained From Records Reviewed: RN notes reviewed, Old records reviewed History obtained from: Patient Exam limitations: Other (known dementia lives at a [facility]) - History of Present Illness HPI Comment/Other: Valencia Hayes is a 88 yo male who I was asked to see to evaluate a large left inguinal hernia. It is known that he has a hernia and has been there for years, however he was recently admitted and is in the ICU for sepsis and the RN noted that the hernia seemed bigger and although his did not appear to be uncomfortable/in pain from it the hospitalist wanted to confirm this was not the source/a part of his sepsis etiology. I am not sure what the patient's baseline mental status is, but he communicated to me that this hernia had been there for a very long time and it comes and goes and does not cause him pain. He states it is not causing him pain currently and he doesn't have any abdominal pain. He states he is passing gas and the RN confirms he is and he is also having bm's. The patient [facility] at [facility] comes in because he was noted to be obtunded by staff. No seizure activity noted. Pt has diagnosis of alzheimers dementia and [facility] for acute renal failure (resolved), urethral obstruction, BPH, pleural effusion. Pt had recently had his metoprolol dose dropped from 100 mg daily to 50 mg daily. He is on eliquis 2.5 mg twice daily for anticoagulation for atrial fibrillation. Pt came to our facility with indwelling solomon catheter that had been in place since being on [facility]. He is currently recieving treatment for KAIN and urinary sepsis. PMH/PSH - Past Medical History Cardiovascular: positive: Atrial fibrillation, Arrhythmia Neuro: positive: Dementia : positive: Benign prostate hypertrophy, Retention, Renal insuffiency, Indwelling catheter MRSA Hx?: No Social & Family Hx - Social History Does the pt smoke?: No Smoking Status: Never smoker Does the pt drink ETOH?: No Does the pt have substance abuse?: No - POLST Patient has POLST: No POLST Status: DNR Meds/Allgy - Home Medications Home Medications: Ambulatory Orders Medication Instructions Recorded Confirmed Apixaban [Eliquis] 2.5 mg PO BID 08/02/19 08/19/19 Finasteride 5 mg PO DAILY 08/02/19 08/19/19 Metoprolol Succinate 50 mg PO DAILY 08/02/19 08/19/19 Acetaminophen 650 mg PO Q4HR PRN 08/19/19 08/19/19 Bisacodyl Supp [Dulcolax Supp] 10 mg [place] DAILY PRN 08/19/19 08/19/19 Loperamide HCl [Loperamide] 2 mg PO ONCE 08/19/19 08/19/19 Mag Hydrox/Al Hydrox/Simeth 5 ml PO Q4HR PRN 08/19/19 08/19/19 [Antacid Suspension] Magnesium Hydroxide [Milk of 30 ml PO ONCE PRN 08/19/19 08/19/19 Magnesia] - Allergies Allergies/Adverse Reactions: Allergies Allergy/AdvReac Type Severity Reaction Status Date / Time No Known Drug Allergies Allergy Verified 08/19/19 08:32 Exam - Vital Signs Reviewed Vital Signs: Yes Vital Signs: Vital Signs x48h Temp Pulse Resp BP BP Pulse Ox 08/22/19 12:00 37 C 113 H 24 105/66 08/22/19 11:47 83/69 L 08/22/19 11:35 106 H 19 83/69 L 08/22/19 11:00 36.8 C 104 H 19 88/75 L 08/22/19 10:00 36.8 C 107 H 18 113/77 08/22/19 09:00 36.7 C 129 H 23 106/90 H 95 08/22/19 08:00 36.9 C 108 H 18 102/69 08/22/19 07:00 36.9 C 110 H 17 106/78 08/22/19 06:38 108/80 08/22/19 06:00 36.9 C 113 H 19 108/80 98 08/22/19 05:00 36.9 C 118 H 19 100/74 - Physical Exam General Appearance: positive: Moderate distress (moderate respiratory distress breathing hard, with belly breathing) Eyes Bilateral: positive: No scleral icterus Neck: positive: Nml inspection Respiratory: positive: Wheezes, Other (moderate respiratory distress breathing hard, with belly breathing) Cardiovascular: positive: Tachycardia Abdomen: positive: Non-tender, Nml bowel sounds, No distention, Other (very thin, abdominal breathing, no obvious tenderness or distentions, BS present, he has a small reducilbe umbilical hernia present, he has a large left inguinal hernia, gas filled loops of bowel present, the bowel was reducilbe and 4-5 cm defect is present. No pain on reduction. The bowel quickly reherniated and was reduced again without issue or discomfort) Results - Lab Results Fish Bones: 08/22/19 06:24 08/22/19 06:24 Other Lab Results: Lab Results x24hrs 08/22/19 08/22/19 08/22/19 Range/Units 06:24 06:24 06:24 WBC 14.5 H (4.8-10.8) x10^3/uL RBC 3.95 L (4.70-6.10) 10^6/uL Hgb 12.5 L (14.0-18.0) g/dL Hct 38.5 L (42.0-52.0) % MCV 97.5 H (80.0-94.0) fL MCH 31.6 H (27.0-31.0) pg MCHC 32.5 (32.0-36.0) g/dL RDW 14.2 (12.0-15.0) % Plt Count 170 (130-450) 10^3/uL MPV 11.3 (7.4-11.4) fL Neut # (Auto) 12.5 H (1.5-6.6) 10^3/uL Lymph # (Auto) 1.2 L (1.5-3.5) 10^3/uL [place] # (Auto) 0.6 (0.0-1.0) 10^3/uL Eos # (Auto) 0.1 (0.0-0.7) 10^3/uL Baso # (Auto) 0.0 (0.0-0.1) 10^3/uL Absolute Nucleated RBC 0.00 x10^3/uL Nucleated RBC % 0.0 /100WBC Sodium (135-145) mmol/L Potassium (3.5-5.0) mmol/L Chloride (101-111) mmol/L Carbon Dioxide (21-32) mmol/L Anion Gap (6-13) BUN (6-20) mg/dL Creatinine (0.6-1.2) mg/dL Estimated GFR (MDRD) (>89) Glucose (70-100) mg/dL Calcium (8.5-10.3) mg/dL Phosphorus 1.9 L (2.5-4.6) mg/dL Magnesium (1.7-2.8) mg/dL Albumin 1.9 L (3.2-5.5) g/dL 08/22/19 Range/Units 06:24 WBC (4.8-10.8) x10^3/uL RBC (4.70-6.10) 10^6/uL Hgb (14.0-18.0) g/dL Hct (42.0-52.0) % MCV (80.0-94.0) fL MCH (27.0-31.0) pg MCHC (32.0-36.0) g/dL RDW (12.0-15.0) % Plt Count (130-450) 10^3/uL MPV (7.4-11.4) fL Neut # (Auto) (1.5-6.6) 10^3/uL Lymph # (Auto) (1.5-3.5) 10^3/uL [place] # (Auto) (0.0-1.0) 10^3/uL Eos # (Auto) (0.0-0.7) 10^3/uL Baso # (Auto) (0.0-0.1) 10^3/uL Absolute Nucleated RBC x10^3/uL Nucleated RBC % /100WBC Sodium 142 (135-145) mmol/L Potassium 3.3 L (3.5-5.0) mmol/L Chloride 117 H (101-111) mmol/L Carbon Dioxide 16 L (21-32) mmol/L Anion Gap 9.0 (6-13) BUN 68 H (6-20) mg/dL Creatinine 1.9 H (0.6-1.2) mg/dL Estimated GFR (MDRD) 34 L (>89) Glucose 127 H (70-100) mg/dL Calcium 6.9 L (8.5-10.3) mg/dL Phosphorus (2.5-4.6) mg/dL Magnesium 1.7 (1.7-2.8) mg/dL Albumin (3.2-5.5) g/dL Sepsis Event Note (H) - Evaluation Current Stage of Sepsis: Sepsis Possible source of Sepsis: positive: Pulmonary, Genitourinary - Sepsis Criteria Sepsis Criteria: Recorded Heart Rate greater than 90 bpm, Respiratory: Increasing oxygen requirements, WBC count greater than 12,000 or less than 4000, INSTITUTIONAL NUTRITION CONSULTANT: altered consciousness (unrelated to primary neuro pathology), SBP less than 90 mmHg, Metabolic: lactate > 2 mmol/L Impression/Plan - Problem List Problem List: Large left inguinal hernia and small umbilical hernia both are easily reducible at the bedside. Very unlikely this is apart of his sepsis and the increased size is most likely due to his increased respiratory distress and abdominal breathing. At this time I would not recommend any intervention. If he complains of pain, the area increase in size, becomes red/tender or he stops passing gas/BM's then may need to reconsider. This does not appear to be an acute surgical issue and surgery will follow from afar. Please contact us if there are any changes or further questions/concerns. Thank you for allowing us to participate in this patient's care.
[2019-08-22] MEDS: SODIUM CHLORIDE 0.9% 500 ML IV PRN (12:55)
[2019-08-22] MEDS ORDERED: PIPERACILLIN/TAZOBACTAM 3.375 GM in SODIUM CHLORIDE 0.9% MINIBAG 100 ML IV ONE (13:00)
[2019-08-22] MEDS: SODIUM CHLORIDE FLUSH 0.9% 10 ML SYRINGE IVP PRN (13:18)
[2019-08-22] MEDS: POTASSIUM CHLOR 10 MEQ/100 ML 10 MEQ/100 ML BAG IV SCH ×4 (14:20→18:15)
[2019-08-22] MEDS: PIPERACILLIN/TAZOBACTAM 3.375 GM in SODIUM CHLORIDE 0.9% MINIBAG 100 ML IV SCH (16:11)
[2019-08-22] MEDS: FAMOTIDINE 20 MG TABLET PO SCH (21:16)
[2019-08-23] MEDS: DILTIAZEM 125 MG in DEXTROSE 5% 100 ML IV SCH (00:16)
[2019-08-23] MEDS: PIPERACILLIN/TAZOBACTAM 3.375 GM in SODIUM CHLORIDE 0.9% MINIBAG 100 ML IV SCH ×3 (00:35→16:05)
[2019-08-23] MEDS: SODIUM CHLORIDE FLUSH 0.9% 10 ML SYRINGE IVP SCH ×3 (04:55→17:44)
[2019-08-23 05:04] LABS: BASOPHILS % (AUTO) 0.2 %; EOSINOPHILS # (AUTO) 0.2 10^3/uL (0.0-0.7); HGB - HEMOGLOBIN 11.7 g/dL (14.0-18.0); LYMPHOCYTES # (AUTO) 1.3 10^3/uL (1.5-3.5); LYMPHOCYTES % (AUTO) 8.6 %; MEAN CORPUSCULAR HEMOGLOBIN 30.6 pg (27.0-31.0); MEAN CORPUSCULAR VOLUME 95.8 fL (80.0-94.0); MEAN PLATELET VOLUME 11.3 fL (7.4-11.4); MONOCYTES # (AUTO) 0.5 10^3/uL (0.0-1.0); MONOCYTES % (AUTO) 3.5 %; NEUTROPHILS # (AUTO) 12.8 10^3/uL (1.5-6.6); NEUTROPHILS % (AUTO) 85.8 %; PLT - PLATELET COUNT 166 10^3/uL (130-450); RED BLOOD COUNT 3.82 10^6/uL (4.70-6.10); RED CELL DISTRIBUTION WIDTH 14.6 % (12.0-15.0); WHITE BLOOD COUNT 14.9 x10^3/uL (4.8-10.8)
[2019-08-23 05:14] LABS: CALCIUM 6.9 mg/dL (8.5-10.3); CREATININE 1.7 mg/dL (0.6-1.2); MAGNESIUM 1.6 mg/dL (1.7-2.8)
[2019-08-23] MEDS ORDERED: POTASSIUM CHLORIDE 20 MEQ TABLET PO ONE (05:59)
[2019-08-23] MEDS ORDERED: MAGNESIUM SULFATE 2 GRAM 2 GM/50 ML BAG IV ONE (06:04)
--- NOTE | 2019-08-23 07:37 | PROVIDER PROGRESS NOTE ---
Assessment/Plan - Problem List (1) Sepsis Qualifiers: Sepsis type: sepsis due to unspecified organism Sepsis acute organ dysfunction status: with acute organ dysfunction Severe sepsis shock status: without septic shock Assessment/Plan: Patient systolic blood pressure continues to be in the 90s. However his map is greater than 65. Also resolved patient has not required Levophed. Patient's white blood cell count was 14.9 today. However he has been afebrile. As a result vancomycin was added to Zosyn. Blood cultures were also repeated today. We will continue with this treatment. (3) Catheter-associated urinary tract infection Qualifiers: Indwelling urinary catheter type: indwelling urethral catheter Encounter type: initial encounter Qualified Code(s): T83.511A - Infection and inflammatory reaction due to indwelling urethral catheter, initial encounter; N39.0 - Urinary tract infection, site not specified Assessment/Plan: Urine culture grew E faecalis. Patient is on Zosyn. We will continue. Patient is having good urine output. It appears clear. (4) Atrial fibrillation with RVR Assessment/Plan: Heart rate continues to fluctuate between 90 and 120. Continue diltiazem 60 mg p.o. 4 times daily, metoprolol and eliquis (5) Acute renal failure (ARF) Assessment/Plan: Patient's renal function continues to improve. His GFR today was 38. His creatinine was 1.7 (6) Scrotal hernia Assessment/Plan: Nonpainful. We will continue to monitor. No acute intervention required at the moment (7) Hematuria Qualifiers: Hematuria type: gross Qualified Code(s): R31.0 - Gross hematuria Assessment/Plan: Resolved - Current Meds Current Meds: Current Medications Generic Name Dose Route Start Last Admin Trade Name Freq PRN Reason Stop Dose Admin Apixaban 2.5 mg 08/22/19 11:00 08/22/19 21:16 Eliquis PO 2.5 mg BID GLORIA Administration Diltiazem HCl 60 mg 08/22/19 17:00 08/23/19 06:16 Cardizem PO 60 mg Q6HR GLORIA Administration Famotidine 20 mg 08/22/19 21:00 08/22/19 21:16 Pepcid PO 20 mg QPM GLORIA Administration Norepinephrine Bitartrate 8 mg 250 mls @ 15 mls/hr 08/19/19 16:00 08/23/19 04:13 / Dextrose IV Not Given .[id number] GLORIA Protocol 8 MCG/MIN Diltiazem HCl 125 mg/ Dextrose 125 mls @ 5 mls/hr 08/19/19 20:00 08/23/19 00:16 IV Not Given .Q25H GLORIA Protocol 5 MG/HR Sodium Chloride 500 mls @ 0 mls/hr 08/22/19 11:53 08/22/19 16:00 Normal Saline 0.9% IV 0 mls/hr Q24H PRN Infusion TKO RATE TKO Piperacillin Sod/Tazobactam 100 mls @ 25 mls/hr 08/22/19 16:00 08/23/19 04:35 Sod 3.375 gm/ Sodium Chloride IV Infused Q8H GLORIA Infusion Metoprolol Succinate 100 mg 08/21/19 09:00 08/22/19 08:03 Toprol Xl PO 100 mg DAILY GLORIA Administration Metoprolol Tartrate 5 mg 08/19/19 21:44 08/20/19 11:59 Lopressor Inj IVP 5 mg Q2HR PRN Administration Tachycardia Mineral Oil 1 applic 08/19/19 15:19 08/22/19 15:06 Cavilon TOP 1 applic PRN PRN Administration Skin Care Multi-Ingredient Ointment 1 applic 08/19/19 15:19 08/19/19 16:16 Zinc Oxide TOP 1 applic PRN PRN Administration Skin Care Multivitamins/Minerals 1 tab 08/21/19 14:00 08/22/19 08:02 Theragran M PO 1 tab DAILYWM GLORIA Administration Polyethylene Glycol 17 gm 08/20/19 09:00 08/22/19 10:58 Miralax PO Not Given DAILY GLORIA Sodium Chloride 10 ml 08/19/19 17:00 08/23/19 04:55 Normal Saline Flush 0.9% IVP 10 ml 0100,0900,1700 GLORIA Administration Sodium Chloride 10 ml 08/19/19 11:32 08/22/19 13:18 Normal Saline Flush 0.9% IVP 30 ml PRN PRN Administration NEEDED PER PROVIDER ORDERS - Lab Result Fish Bone Diagrams: 08/23/19 04:45 08/23/19 04:45 - Additional Planning My Orders: My Active Orders 08/22/19 10:16 Initiate Line Care Protocol [RC] .protocol 08/22/19 10:53 General Surgery Consult [CONS] Routine 08/22/19 11:00 Apixaban [Eliquis] 2.5 mg PO BID 08/22/19 16:00 Piperacillin/Tazobactam [Zosyn] 3.375 gm Sodium Chloride 0.9% Minibag [Normal Saline 0.9% Minibag] 100 ml IV Q8H 08/22/19 17:00 diltiaZEM [Cardizem] 60 mg PO Q6HR 08/22/19 21:00 Famotidine [Pepcid] 20 mg PO QPM 08/23/19 CULTURE, BLOOD #1 [RM] Stat CULTURE, BLOOD #2 [RM] Stat 08/23/19 07:21 Vancomycin: Pharmacy To Dose [Vancomycin-Pharmacy To Dose] 1 each MC ONCE PRN 08/23/19 07:31 URIC ACID [CHEM] Stat 08/23/19 08:00 Potassium Chloride/Water 10 mEq/100 mL q1h (Enter # of bags) Potassium Chlor 10 Meq/100 ml [Potassium Chloride] 10 meq in 100 ml IV Q1H 08/24/19 05:00 BMP - BASIC METABOLIC PANEL [CHEM] DAILYLAB CBC - COMP BLD CT W/AUTO DIFF [HEME] DAILYLAB MAGNESIUM [CHEM] DAILYLAB 08/24/19 08:00 Clinical Swallow Evaluation [ST] Routine 08/25/19 05:00 BMP - BASIC METABOLIC PANEL [CHEM] DAILYLAB CBC - COMP BLD CT W/AUTO DIFF [HEME] DAILYLAB 08/26/19 05:00 BMP - BASIC METABOLIC PANEL [CHEM] DAILYLAB CBC - COMP BLD CT W/AUTO DIFF [HEME] DAILYLAB Subjective - Subjective Patient Reports: Other (Patient seen and examined this morning. He was awake and alert resting comfortably in bed at time of exam. There was no significant change in his clinical status today when compared to yesterday. His bowel movements have been mostly mucoid in appearance. It was brought to my attention that his left big toe appeared inflamed and was painful to touch.) Objective Vital Signs: Vital Signs - 24 hr 08/22/19 08/22/19 08/22/19 08:00 09:00 10:00 Temperature 36.9 C 36.7 C 36.8 C Heart Rate [ 108 H 129 H 107 H Monitoring electrodes] Respiratory 18 23 18 Rate Blood Pressure Blood Pressure 102/69 106/90 H 113/77 [Left Brachial artery] O2 Saturation 95 08/22/19 08/22/19 08/22/19 11:00 11:35 11:47 Temperature 36.8 C Heart Rate [ 104 H 106 H Monitoring electrodes] Respiratory 19 19 Rate Blood Pressure 83/69 L Blood Pressure 88/75 L 83/69 L [Left Brachial artery] O2 Saturation 08/22/19 08/22/19 08/22/19 12:00 13:00 14:00 Temperature 37 C 37 C Heart Rate [ 113 H 106 H 99 Monitoring electrodes] Respiratory 24 22 20 Rate Blood Pressure Blood Pressure 105/66 113/78 104/74 [Left Brachial artery] O2 Saturation 08/22/19 08/22/19 08/22/19 15:00 16:00 16:59 Temperature Heart Rate [ 103 H 116 H Monitoring electrodes] Respiratory 20 23 Rate Blood Pressure 96/59 L Blood Pressure 93/65 96/59 L [Left Brachial artery] O2 Saturation 100 08/22/19 08/22/19 08/22/19 17:00 18:00 18:55 Temperature 37.4 C 37.5 C 37.7 C H Heart Rate [ 122 H 113 H 90 Monitoring electrodes] Respiratory 23 22 21 Rate Blood Pressure Blood Pressure 96/69 112/91 H 112/91 H [Left Brachial artery] O2 Saturation 100 100 100 08/22/19 08/22/19 08/22/19 19:18 20:00 21:00 Temperature 37.6 C H 37.5 C Heart Rate [ 102 H 95 112 H Monitoring electrodes] Respiratory 21 20 21 Rate Blood Pressure Blood Pressure 104/60 78/60 L 98/70 [Left Brachial artery] O2 Saturation 100 100 08/22/19 08/22/19 08/23/19 22:00 23:00 00:00 Temperature 37.5 C 37.5 C 37.3 C Heart Rate [ 113 H 107 H 111 H Monitoring electrodes] Respiratory 23 22 22 Rate Blood Pressure Blood Pressure 97/64 99/67 98/73 [Left Brachial artery] O2 Saturation 98 100 08/23/19 08/23/19 08/23/19 00:34 01:00 02:00 Temperature 37.3 C 37.2 C Heart Rate [ 118 H 98 Monitoring electrodes] Respiratory 18 20 Rate Blood Pressure 98/73 Blood Pressure 99/78 85/62 L [Left Brachial artery] O2 Saturation 99 08/23/19 08/23/19 08/23/19 02:55 04:00 05:00 Temperature 37.0 C 36.8 C 36.8 C Heart Rate [ 106 H 111 H 105 H Monitoring electrodes] Respiratory 21 20 18 Rate Blood Pressure Blood Pressure 93/64 94/79 94/72 [Left Brachial artery] O2 Saturation 99 08/23/19 08/23/19 08/23/19 06:00 06:16 07:00 Temperature 36.8 C 36.7 C Heart Rate [ 109 H 96 Monitoring electrodes] Respiratory 19 18 Rate Blood Pressure 81/67 L Blood Pressure 81/67 L 95/70 [Left Brachial artery] O2 Saturation 100 Oxygen O2 Source Room air I&O (Last 24 Hrs): Intake and Output Totals x24h 08/21/19 08/22/19 08/23/19 23:59 23:59 23:59 Intake Total 5399.916 3703.834 100 Output Total 3575 5020 1315 Balance 1824.916 -1316.166 -1215 General: Alert, Oriented x3 HEENT: Atraumatic, PERRLA, EOMI Neck: Supple, No JVD Neuro: Alert, Non Focal, Oriented Times 3 Cardiovascular: Other (Irregularly irregular) Respiratory: Chest non-tender, No respiratory distress, Breath sounds nml Abdomen: Normal bowel sounds, Soft Genitourinary: Inguinal Hernia Extremities: Other (edema in feet (3+)) Skin: No rashes - Results Results: Laboratory Results WBC 14.9 x10^3/uL (4.8-10.8) H 08/23/19 04:45 RBC 3.82 10^6/uL (4.70-6.10) L 08/23/19 04:45 Hgb 11.7 g/dL (14.0-18.0) L 08/23/19 04:45 Hct 36.6 % (42.0-52.0) L 08/23/19 04:45 MCV 95.8 fL (80.0-94.0) H 08/23/19 04:45 MCH 30.6 pg (27.0-31.0) 08/23/19 04:45 MCHC 32.0 g/dL (32.0-36.0) 08/23/19 04:45 RDW 14.6 % (12.0-15.0) 08/23/19 04:45 Plt Count 166 10^3/uL (130-450) 08/23/19 04:45 MPV 11.3 fL (7.4-11.4) 08/23/19 04:45 Neut # (Auto) 12.8 10^3/uL (1.5-6.6) H 08/23/19 04:45 Lymph # (Auto) 1.3 10^3/uL (1.5-3.5) L 08/23/19 04:45 [place] # (Auto) 0.5 10^3/uL (0.0-1.0) 08/23/19 04:45 Eos # (Auto) 0.2 10^3/uL (0.0-0.7) 08/23/19 04:45 Baso # (Auto) 0.0 10^3/uL (0.0-0.1) 08/23/19 04:45 Absolute Nucleated RBC 0.00 x10^3/uL 08/23/19 04:45 Total Counted 100 08/19/19 10:14 Band Neuts % (Manual) 6 % (0-10) 08/19/19 10:14 Abnorm Lymph % (Manual) 0 % 08/19/19 10:14 Nucleated RBC % 0.0 /100WBC 08/23/19 04:45 Neutrophils # (Manual) 29.4 10^3/uL (1.5-6.6) H 08/19/19 10:14 Lymphocytes # (Manual) 0.0 10^3/uL (1.5-3.5) L 08/19/19 10:14 Monocytes # (Manual) 0.0 10^3/uL (0.0-1.0) 08/19/19 10:14 Eosinophils # (Manual) 0.0 10^3/uL (0-0.7) 08/19/19 10:14 Basophils # (Manual) 0.0 10^3/uL (0-0.1) 08/19/19 10:14 Differential Comment MANUAL DIFFERENTIAL 08/19/19 10:14 Manual Slide Review Indicated 08/19/19 10:14 PT 18.4 secs (9.9-12.6) H 08/21/19 07:55 INR 1.7 (0.8-1.2) H 08/21/19 07:55 APTT 32.2 secs (24.9-33.3) 08/20/19 04:30 Sodium 145 mmol/L (135-145) 08/23/19 04:45 Potassium 3.0 mmol/L (3.5-5.0) L 08/23/19 04:45 Chloride 113 mmol/L (101-111) H 08/23/19 04:45 Carbon Dioxide 22 mmol/L (21-32) 08/23/19 04:45 Anion Gap 10.0 (6-13) 08/23/19 04:45 BUN 54 mg/dL (6-20) H 08/23/19 04:45 Creatinine 1.7 mg/dL (0.6-1.2) H 08/23/19 04:45 Estimated GFR (MDRD) 38 (>89) L 08/23/19 04:45 Glucose 122 mg/dL (70-100) H 08/23/19 04:45 Lactic Acid 1.6 mmol/L (0.5-2.2) 08/20/19 04:30 Calcium 6.9 mg/dL (8.5-10.3) L 08/23/19 04:45 Phosphorus 1.9 mg/dL (2.5-4.6) L 08/22/19 06:24 Magnesium 1.6 mg/dL (1.7-2.8) L 08/23/19 04:45 Total Bilirubin 0.7 mg/dL (0.2-1.0) 08/20/19 04:30 AST 24 IU/L (10-42) 08/20/19 04:30 ALT 24 IU/L (10-60) 08/20/19 04:30 Alkaline Phosphatase 77 IU/L (42-121) 08/20/19 04:30 Total Creatine Kinase 51 IU/L (22-269) 08/19/19 08:38 Troponin I High Sens 14.0 ng/L (2.3-19.7) 08/19/19 18:14 Total Protein 5.1 g/dL (6.7-8.2) L 08/20/19 04:30 Albumin 1.8 g/dL (3.2-5.5) L 08/23/19 04:45 Globulin 3.0 g/dL (2.1-4.2) 08/20/19 04:30 Albumin/Globulin Ratio 0.7 (1.0-2.2) L 08/20/19 04:30 Lipase 34 U/L (22-51) 08/19/19 08:38 Urine Color RED/BLOODY 08/19/19 08:41 Urine Clarity CLOUDY (CLEAR) 08/19/19 08:41 Urine pH 8.5 PH (5.0-7.5) H 08/19/19 08:41 Ur Specific [place] 1.010 (1.002-1.030) 08/19/19 08:41 Urine Protein 100 mg/dL (NEGATIVE) H 08/19/19 08:41 Urine Glucose (UA) NEGATIVE mg/dL (NEGATIVE) 08/19/19 08:41 Urine Ketones NEGATIVE mg/dL (NEGATIVE) 08/19/19 08:41 Urine Occult Blood LARGE (NEGATIVE) H 08/19/19 08:41 Urine Nitrite POSITIVE (NEGATIVE) H 08/19/19 08:41 Urine Bilirubin NEGATIVE (NEGATIVE) 08/19/19 08:41 Urine Urobilinogen 0.2 (NORMAL) E.U./dL (NORMAL) 08/19/19 08:41 Ur Leukocyte Esterase LARGE (NEGATIVE) H 08/19/19 08:41 Urine RBC TNTC /HPF (0-5) H 08/19/19 08:41 Urine WBC >25 /HPF (0-3) H 08/19/19 08:41 Ur Squamous Epith Cells NONE SEEN (<= Few) 08/19/19 08:41 Urine Bacteria Few /HPF (None Seen) 08/19/19 08:41 Ur Microscopic Review INDICATED 08/19/19 08:41 Urine Culture Comments INDICATED 08/19/19 08:41 Nasal Screen MRSA (PCR) NEGATIVE (NEGATIVE) 08/19/19 13:08 Ethyl Alcohol < 5.0 mg/dL 08/19/19 08:38 Coronavirus (PCR) NEGATIVE 08/19/19 12:10 Blood Type O NEGATIVE 08/20/19 04:30 Blood Type Recheck O NEGATIVE 08/20/19 06:55 Antibody Screen NEGATIVE 08/20/19 04:30 Sepsis Event Note (H) - Evaluation Current Stage of Sepsis: Sepsis Possible source of Sepsis: positive: Pulmonary, Genitourinary - Sepsis Criteria Sepsis Criteria: Recorded Heart Rate greater than 90 bpm, Respiratory: Increasing oxygen requirements, WBC count greater than 12,000 or less than 4000, [employer]: altered consciousness (unrelated to primary neuro pathology), SBP less than 90 mmHg, Metabolic: lactate > 2 mmol/L ABX Reporting Has patient been on IV antibiotics over the past 48 hours?: Yes
[2019-08-23] MEDS: POTASSIUM CHLOR 10 MEQ/100 ML 10 MEQ/100 ML BAG IV SCH ×4 (08:02→11:07)
[2019-08-23] MEDS: NEUTRA-PHOS 250 MG TABLET PO SCH ×2 (08:08→09:22)
[2019-08-23] MEDS: MULTIVITAMIN W/MINERALS TABLET PO SCH (08:08)
[2019-08-23] MEDS: polyethylene glycoL 3350 17 GM PACKET PO SCH (08:37)
[2019-08-23] MEDS: METOPROLOL SUCCINATE 50 MG TABLET PO SCH (08:37)
[2019-08-23] MEDS: APIXABAN 2.5 MG TABLET PO SCH ×2 (08:37→20:05)
[2019-08-23] MEDS ORDERED: VANCOMYCIN INJ 1 GM, VANCOMYCIN INJ 500 MG in SODIUM CHLORIDE 0.9% 500 ML IV ONE (12:00)
[2019-08-23] MEDS: FAMOTIDINE 20 MG TABLET PO SCH (20:05)
[2019-08-23] MEDS: ACETAMINOPHEN 325 MG TABLET PO PRN (20:05)
[2019-08-24] MEDS: DILTIAZEM 125 MG in DEXTROSE 5% 100 ML IV SCH (00:09)
[2019-08-24] MEDS: PIPERACILLIN/TAZOBACTAM 3.375 GM in SODIUM CHLORIDE 0.9% MINIBAG 100 ML IV SCH ×3 (00:14→15:54)
[2019-08-24] MEDS: SODIUM CHLORIDE FLUSH 0.9% 10 ML SYRINGE IVP SCH ×3 (01:22→17:07)
[2019-08-24] MEDS: SODIUM CHLORIDE FLUSH 0.9% 10 ML SYRINGE IVP PRN (05:28)
[2019-08-24 05:57] LABS: BASOPHILS % (AUTO) 0.1 %; EOSINOPHILS # (AUTO) 0.2 10^3/uL (0.0-0.7); EOSINOPHILS % (AUTO) 1.2 %; HGB - HEMOGLOBIN 11.5 g/dL (14.0-18.0); LYMPHOCYTES # (AUTO) 1.6 10^3/uL (1.5-3.5); LYMPHOCYTES % (AUTO) 11.7 %; MEAN CORPUSCULAR HEMOGLOBIN 30.3 pg (27.0-31.0); MEAN CORPUSCULAR HGB CONC 31.6 g/dL (32.0-36.0); MEAN CORPUSCULAR VOLUME 95.8 fL (80.0-94.0); MEAN PLATELET VOLUME 11.3 fL (7.4-11.4); MONOCYTES # (AUTO) 0.1 10^3/uL (0.0-1.0); MONOCYTES % (AUTO) 0.9 %; NEUTROPHILS # (AUTO) 11.5 10^3/uL (1.5-6.6); NEUTROPHILS % (AUTO) 85.1 %; PLT - PLATELET COUNT 148 10^3/uL (130-450); RED CELL DISTRIBUTION WIDTH 14.6 % (12.0-15.0); WHITE BLOOD COUNT 13.5 x10^3/uL (4.8-10.8)
[2019-08-24 06:18] LABS: CREATININE 1.6 mg/dL (0.6-1.2); MAGNESIUM 1.7 mg/dL (1.7-2.8); PHOSPHORUS 1.9 mg/dL (2.5-4.6)
[2019-08-24 06:21] LABS: CALCIUM 6.4 mg/dL (8.5-10.3)
[2019-08-24] MEDS ORDERED: POTASSIUM CHLORIDE 20 MEQ TABLET PO ONE (07:00)
[2019-08-24] MEDS ORDERED: MAGNESIUM SULFATE 2 GRAM 2 GM/50 ML BAG IV ONE (07:00)
[2019-08-24] MEDS: NEUTRA-PHOS 250 MG TABLET PO SCH ×2 (07:16→08:28)
[2019-08-24 07:22] LABS: VBG PH 7.392 (7.31-7.41)
[2019-08-24] MEDS: MULTIVITAMIN W/MINERALS TABLET PO SCH (08:18)
[2019-08-24] MEDS: APIXABAN 2.5 MG TABLET PO SCH ×2 (08:29→21:09)
[2019-08-24] MEDS ORDERED: CALCIUM GLUCONATE 1,000 MG in SODIUM CHLORIDE 0.9% 50 ML IV ONE (08:30)
[2019-08-24] MEDS: CHOLECALCIFEROL 1,000 UNIT TABLET PO SCH (08:31)
--- NOTE | 2019-08-24 09:11 | PROVIDER PROGRESS NOTE ---
Assessment/Plan - Problem List (1) Sepsis Qualifiers: Sepsis type: sepsis due to unspecified organism Sepsis acute organ dysfunction status: with acute organ dysfunction Severe sepsis shock status: without septic shock Assessment/Plan: Patient's blood pressure has stayed stable in the 90s. His map continues to be greater than 65. His white blood cell count improved to 13.5 today. Patient has been afebrile. We will continue vancomycin and Zosyn. We will reassess patient tomorrow to determine if he can be transitioned to Med/Surg status. Overall he is at least stable with some improvement. Physical therapy has been consulted to start working on strengthening. We will await recommendations from nutrition with regards to patient's nutritional status (2) Bacteremia Assessment/Plan: On vancomycin and Zosyn (3) Catheter-associated urinary tract infection Qualifiers: Indwelling urinary catheter type: indwelling urethral catheter Encounter type: initial encounter Qualified Code(s): T83.511A - Infection and inflammatory reaction due to indwelling urethral catheter, initial encounter; N39.0 - Urinary tract infection, site not specified Assessment/Plan: Improved/resolved On vancomycin and Zosyn. Urine has been persistently clear. Patient has good urine output. (4) Atrial fibrillation with RVR Assessment/Plan: Heart rate continues to fluctuate between 90 and 120. Continue diltiazem 60 mg p.o. 4 times daily, metoprolol and eliquis (5) Acute renal failure (ARF) Assessment/Plan: Patient's renal function continues to improve. GFR today is 41. Patient has good urine output. (6) Electrolyte imbalance Assessment/Plan: Patient's potassium, magnesium, phosphorus and calcium being replaced per ICU electrolyte protocol (7) Scrotal hernia Assessment/Plan: Nonpainful. Continue to monitor (8) Hematuria Qualifiers: Hematuria type: gross Qualified Code(s): R31.0 - Gross hematuria Assessment/Plan: Resolved - Current Meds Current Meds: Current Medications Generic Name Dose Route Start Last Admin Trade Name Freq PRN Reason Stop Dose Admin Acetaminophen 650 mg 08/23/19 19:26 08/23/19 20:05 Tylenol PO 650 mg Q4HR PRN Administration Pain or Fever > 38C (100.4F) Apixaban 2.5 mg 08/22/19 11:00 08/24/19 08:29 Eliquis PO 2.5 mg BID GLORIA Administration Cholecalciferol 2,000 unit 08/24/19 09:00 08/24/19 08:31 Vitamin D3 PO 2,000 unit DAILY GLORIA Administration Diltiazem HCl 60 mg 08/22/19 17:00 08/24/19 06:10 Cardizem PO 60 mg Q6HR GLORIA Administration Famotidine 20 mg 08/22/19 21:00 08/23/19 20:05 Pepcid PO 20 mg QPM GLORIA Administration Norepinephrine Bitartrate 8 mg 250 mls @ 15 mls/hr 08/19/19 16:00 08/23/19 20:05 / Dextrose IV Not Given .[id number] GLORIA Protocol 8 MCG/MIN Diltiazem HCl 125 mg/ Dextrose 125 mls @ 5 mls/hr 08/19/19 20:00 08/24/19 00:09 IV Not Given .Q25H GLORIA Protocol 5 MG/HR Sodium Chloride 500 mls @ 0 mls/hr 08/22/19 11:53 08/22/19 16:00 Normal Saline 0.9% IV 0 mls/hr Q24H PRN Infusion TKO RATE TKO Piperacillin Sod/Tazobactam 100 mls @ 25 mls/hr 08/22/19 16:00 08/24/19 09:07 Sod 3.375 gm/ Sodium Chloride IV 25 mls/hr Q8H GLORIA Administration Metoprolol Succinate 100 mg 08/21/19 09:00 08/23/19 08:37 Toprol Xl PO 100 mg DAILY GLORIA Administration Metoprolol Tartrate 5 mg 08/19/19 21:44 08/20/19 11:59 Lopressor Inj IVP 5 mg Q2HR PRN Administration Tachycardia Mineral Oil 1 applic 08/19/19 15:19 08/22/19 15:06 Cavilon TOP 1 applic PRN PRN Administration Skin Care Multi-Ingredient Ointment 1 applic 08/19/19 15:19 08/19/19 16:16 Zinc Oxide TOP 1 applic PRN PRN Administration Skin Care Multivitamins/Minerals 1 tab 08/21/19 14:00 08/24/19 08:18 Theragran M PO 1 tab DAILYWM GLORIA Administration Polyethylene Glycol 17 gm 08/20/19 09:00 08/23/19 08:37 Miralax PO Not Given DAILY GLORIA Sodium Chloride 10 ml 08/19/19 17:00 08/24/19 08:46 Normal Saline Flush 0.9% IVP 10 ml 0100,0900,1700 GLORIA Administration Sodium Chloride 10 ml 08/19/19 11:32 08/24/19 05:28 Normal Saline Flush 0.9% IVP 30 ml PRN PRN Administration NEEDED PER PROVIDER ORDERS - Lab Result Fish Bone Diagrams: 08/24/19 05:30 08/24/19 05:30 - Additional Planning Condition/Complexity: Improved My Orders: My Active Orders 08/23/19 09:10 CULTURE, BLOOD #2 [RM] Stat 08/24/19 08:00 Clinical Swallow Evaluation [ST] Routine 08/24/19 09:00 Cholecalciferol [Vitamin D3] 2,000 unit PO DAILY 08/24/19 17:00 Saccharomyces Boulardii [Florastor] 250 mg PO BIDWM 08/25/19 05:00 BMP - BASIC METABOLIC PANEL [CHEM] DAILYLAB CBC - COMP BLD CT W/AUTO DIFF [HEME] DAILYLAB 08/25/19 05:30 VANCOMYCIN RANDOM [CHEM] Timed 08/26/19 05:00 BMP - BASIC METABOLIC PANEL [CHEM] DAILYLAB CBC - COMP BLD CT W/AUTO DIFF [HEME] DAILYLAB Consult/Specialty: OT, PT Time Spent: 15-30 minutes Subjective - Subjective Patient Reports: Other (Patient seen and examined this morning. Though awake and alert at the time of my exam he was not regularly talkative. He would not readily answer questions asked. He has a very flat affect. There were no new changes in his clinical status overnight.) Objective Vital Signs: Vital Signs - 24 hr 08/23/19 08/23/19 08/23/19 10:00 11:00 12:00 Temperature 36.5 C 36.7 C 37.0 C Heart Rate [ 78 76 105 H Monitoring electrodes] Respiratory 18 21 19 Rate Blood Pressure Blood Pressure 85/63 L 90/66 99/82 H [Left Brachial artery] O2 Saturation 98 08/23/19 08/23/19 08/23/19 12:13 13:00 14:00 Temperature Heart Rate [ 108 H 102 H Monitoring electrodes] Respiratory 20 19 Rate Blood Pressure 90/66 Blood Pressure 103/60 92/67 [Left Brachial artery] O2 Saturation 0408/23/19 08/23/19 15:00 16:00 17:00 Temperature 37.5 C 37.7 C H Heart Rate [ 105 H 98 110 H Monitoring electrodes] Respiratory 22 22 22 Rate Blood Pressure Blood Pressure 104/91 H 97/67 96/69 [Left Brachial artery] O2 Saturation 97 98 08/23/19 08/23/19 08/23/19 17:44 18:00 19:00 Temperature 37.8 C H 38.0 C H Heart Rate [ 100 98 Monitoring electrodes] Respiratory 19 21 Rate Blood Pressure 96/69 Blood Pressure 100/78 97/84 H [Left Brachial artery] O2 Saturation 97 97 08/23/19 08/23/19 08/23/19 20:00 21:05 22:00 Temperature 38.2 C H 38 C H 37.7 C H Heart Rate [ 108 H 107 H 106 H Monitoring electrodes] Respiratory 28 H 21 20 Rate Blood Pressure Blood Pressure 100/62 86/60 L 85/73 L [Left Brachial artery] O2 Saturation 99 98 98 08/23/19 08/23/19 08/24/19 23:00 23:20 00:00 Temperature 37.1 C Heart Rate [ 113 H 110 H 95 Monitoring electrodes] Respiratory 18 20 17 Rate Blood Pressure Blood Pressure 81/51 L 101/54 L 95/70 [Left Brachial artery] O2 Saturation 97 98 97 08/24/19 08/24/19 08/24/19 00:09 01:00 02:00 Temperature Heart Rate [ 104 H 106 H Monitoring electrodes] Respiratory 17 16 Rate Blood Pressure 95/70 Blood Pressure 84/67 L 87/72 L [Left Brachial artery] O2 Saturation 97 96 08/24/19 08/24/19 08/24/19 03:00 04:25 05:00 Temperature 36.9 C Heart Rate [ 106 H 116 H 120 H Monitoring electrodes] Respiratory 17 16 20 Rate Blood Pressure Blood Pressure 92/66 94/72 84/71 L [Left Brachial artery] O2 Saturation 97 100 98 08/24/19 08/24/19 08/24/19 06:00 06:10 07:00 Temperature 36.8 C Heart Rate [ 118 H 106 H Monitoring electrodes] Respiratory 98 H 20 Rate Blood Pressure 91/70 Blood Pressure 118/58 L 92/56 L [Left Brachial artery] O2 Saturation 98 08/24/19 08/24/19 08:00 09:00 Temperature 36.9 C 36.8 C Heart Rate [ 98 95 Monitoring electrodes] Respiratory 15 17 Rate Blood Pressure Blood Pressure 82/57 L 91/61 [Left Brachial artery] O2 Saturation 98 Oxygen O2 Source Room air I&O (Last 24 Hrs): Intake and Output Totals x24h 08/22/19 08/23/19 08/24/19 23:59 23:59 23:59 Intake Total 3703.834 2821.667 370 Output Total 5020 2995 835 Balance -1316.166 -173.333 -465 General: Alert, Oriented x3, No acute distress HEENT: PERRLA, EOMI Neck: Supple, No JVD Neuro: Alert, Non Focal, Oriented Times 3 Cardiovascular: Other (irregularly irregular) Respiratory: Chest non-tender, No respiratory distress, Breath sounds nml Abdomen: Normal bowel sounds, Soft, No tenderness Extremities: No clubbing, No cyanosis, Other (2+ lower extremity in feet) Skin: No rashes - Results Results: Laboratory Results WBC 13.5 x10^3/uL (4.8-10.8) H 08/24/19 05:30 RBC 3.80 10^6/uL (4.70-6.10) L 08/24/19 05:30 Hgb 11.5 g/dL (14.0-18.0) L 08/24/19 05:30 Hct 36.4 % (42.0-52.0) L 08/24/19 05:30 MCV 95.8 fL (80.0-94.0) H 08/24/19 05:30 MCH 30.3 pg (27.0-31.0) 08/24/19 05:30 MCHC 31.6 g/dL (32.0-36.0) L 08/24/19 05:30 RDW 14.6 % (12.0-15.0) 08/24/19 05:30 Plt Count 148 10^3/uL (130-450) 08/24/19 05:30 MPV 11.3 fL (7.4-11.4) 08/24/19 05:30 Neut # (Auto) 11.5 10^3/uL (1.5-6.6) H 08/24/19 05:30 Lymph # (Auto) 1.6 10^3/uL (1.5-3.5) 08/24/19 05:30 Davis # (Auto) 0.1 10^3/uL (0.0-1.0) 08/24/19 05:30 Eos # (Auto) 0.2 10^3/uL (0.0-0.7) 08/24/19 05:30 Baso # (Auto) 0.0 10^3/uL (0.0-0.1) 08/24/19 05:30 Absolute Nucleated RBC 0.00 x10^3/uL 08/24/19 05:30 Total Counted 100 08/19/19 10:14 Band Neuts % (Manual) 6 % (0-10) 08/19/19 10:14 Abnorm Lymph % (Manual) 0 % 08/19/19 10:14 Nucleated RBC % 0.0 /100WBC 08/24/19 05:30 Neutrophils # (Manual) 29.4 10^3/uL (1.5-6.6) H 08/19/19 10:14 Lymphocytes # (Manual) 0.0 10^3/uL (1.5-3.5) L 08/19/19 10:14 Monocytes # (Manual) 0.0 10^3/uL (0.0-1.0) 08/19/19 10:14 Eosinophils # (Manual) 0.0 10^3/uL (0-0.7) 08/19/19 10:14 Basophils # (Manual) 0.0 10^3/uL (0-0.1) 08/19/19 10:14 Differential Comment MANUAL DIFFERENTIAL 08/19/19 10:14 Manual Slide Review Indicated 08/19/19 10:14 PT 18.4 secs (9.9-12.6) H 08/21/19 07:55 INR 1.7 (0.8-1.2) H 08/21/19 07:55 APTT 32.2 secs (24.9-33.3) 08/20/19 04:30 VBG pH 7.392 (7.31-7.41) 08/24/19 07:13 Ionized Calcium 0.99 mmol/L (1.15-1.33) L 08/24/19 07:13 Sodium 143 mmol/L (135-145) 08/24/19 05:30 Potassium 3.0 mmol/L (3.5-5.0) L 08/24/19 05:30 Chloride 114 mmol/L (101-111) H 08/24/19 05:30 Carbon Dioxide 21 mmol/L (21-32) 08/24/19 05:30 Anion Gap 8.0 (6-13) 08/24/19 05:30 BUN 44 mg/dL (6-20) H 08/24/19 05:30 Creatinine 1.6 mg/dL (0.6-1.2) H 08/24/19 05:30 Estimated GFR (MDRD) 41 (>89) L 08/24/19 05:30 Glucose 113 mg/dL (70-100) H 08/24/19 05:30 Lactic Acid 1.6 mmol/L (0.5-2.2) 08/20/19 04:30 Uric Acid 6.5 mg/dL (2.6-7.2) 08/23/19 08:10 Calcium 6.4 mg/dL (8.5-10.3) L* 08/24/19 05:30 Phosphorus 1.9 mg/dL (2.5-4.6) L 08/24/19 05:30 Magnesium 1.7 mg/dL (1.7-2.8) 08/24/19 05:30 Total Bilirubin 0.7 mg/dL (0.2-1.0) 08/20/19 04:30 AST 24 IU/L (10-42) 08/20/19 04:30 ALT 24 IU/L (10-60) 08/20/19 04:30 Alkaline Phosphatase 77 IU/L (42-121) 08/20/19 04:30 Total Creatine Kinase 51 IU/L (22-269) 08/19/19 08:38 Troponin I High Sens 14.0 ng/L (2.3-19.7) 08/19/19 18:14 Total Protein 5.1 g/dL (6.7-8.2) L 08/20/19 04:30 Albumin 1.8 g/dL (3.2-5.5) L 08/24/19 05:30 Globulin 3.0 g/dL (2.1-4.2) 08/20/19 04:30 Albumin/Globulin Ratio 0.7 (1.0-2.2) L 08/20/19 04:30 Lipase 34 U/L (22-51) 08/19/19 08:38 Urine Color RED/BLOODY 08/19/19 08:41 Urine Clarity CLOUDY (CLEAR) 08/19/19 08:41 Urine pH 8.5 PH (5.0-7.5) H 08/19/19 08:41 Ur Specific [place] 1.010 (1.002-1.030) 08/19/19 08:41 Urine Protein 100 mg/dL (NEGATIVE) H 08/19/19 08:41 Urine Glucose (UA) NEGATIVE mg/dL (NEGATIVE) 08/19/19 08:41 Urine Ketones NEGATIVE mg/dL (NEGATIVE) 08/19/19 08:41 Urine Occult Blood LARGE (NEGATIVE) H 08/19/19 08:41 Urine Nitrite POSITIVE (NEGATIVE) H 08/19/19 08:41 Urine Bilirubin NEGATIVE (NEGATIVE) 08/19/19 08:41 Urine Urobilinogen 0.2 (NORMAL) E.U./dL (NORMAL) 08/19/19 08:41 Ur Leukocyte Esterase LARGE (NEGATIVE) H 08/19/19 08:41 Urine RBC TNTC /HPF (0-5) H 08/19/19 08:41 Urine WBC >25 /HPF (0-3) H 08/19/19 08:41 Ur Squamous Epith Cells NONE SEEN (<= Few) 08/19/19 08:41 Urine Bacteria Few /HPF (None Seen) 08/19/19 08:41 Ur Microscopic Review INDICATED 08/19/19 08:41 Urine Culture Comments INDICATED 08/19/19 08:41 Nasal Screen MRSA (PCR) NEGATIVE (NEGATIVE) 08/19/19 13:08 Ethyl Alcohol < 5.0 mg/dL 08/19/19 08:38 Coronavirus (PCR) NEGATIVE 08/19/19 12:10 Blood Type O NEGATIVE 08/20/19 04:30 Blood Type Recheck O NEGATIVE 08/20/19 06:55 Antibody Screen NEGATIVE 08/20/19 04:30 Sepsis Event Note (H) - Evaluation Current Stage of Sepsis: Sepsis Possible source of Sepsis: positive: Pulmonary, Genitourinary - Sepsis Criteria Sepsis Criteria: Recorded Heart Rate greater than 90 bpm, Respiratory: Increasing oxygen requirements, WBC count greater than 12,000 or less than 4000, UPPER EXTREMITY SURGEON: altered consciousness (unrelated to primary neuro pathology), SBP less than 90 mmHg, Metabolic: lactate > 2 mmol/L ABX Reporting Has patient been on IV antibiotics over the past 48 hours?: Yes
[2019-08-24] MEDS: METOPROLOL SUCCINATE 50 MG TABLET PO SCH (09:13)
[2019-08-24] MEDS: polyethylene glycoL 3350 17 GM PACKET PO SCH (09:13)
[2019-08-24] MEDS: SODIUM CHLORIDE 0.9% 500 ML IV PRN (15:39)
[2019-08-24] MEDS: SACCHAROMYCES BOULARDII 250 MG CAPSULE PO SCH (17:04)
[2019-08-24] MEDS: FAMOTIDINE 20 MG TABLET PO SCH (21:09)
[2019-08-24] MEDS: ACETAMINOPHEN 325 MG TABLET PO PRN (21:09)
[2019-08-25] MEDS: PIPERACILLIN/TAZOBACTAM 3.375 GM in SODIUM CHLORIDE 0.9% MINIBAG 100 ML IV SCH ×3 (00:02→16:00)
[2019-08-25] MEDS: SODIUM CHLORIDE FLUSH 0.9% 10 ML SYRINGE IVP SCH ×3 (00:04→18:33)
[2019-08-25] MEDS: MIN OIL/DIMETHICON/COCONUT OIL 92 GM TUBE TOP PRN ×5 (00:10→22:49)
[2019-08-25] MEDS: DILTIAZEM 125 MG in DEXTROSE 5% 100 ML IV SCH (02:05)
[2019-08-25] MEDS: SODIUM CHLORIDE FLUSH 0.9% 10 ML SYRINGE IVP PRN ×2 (04:45→14:20)
[2019-08-25 04:58] LABS: BASOPHILS % (AUTO) 0.4 %; EOSINOPHILS # (AUTO) 0.1 10^3/uL (0.0-0.7); EOSINOPHILS % (AUTO) 1.1 %; HGB - HEMOGLOBIN 11.5 g/dL (14.0-18.0); LYMPHOCYTES # (AUTO) 1.2 10^3/uL (1.5-3.5); LYMPHOCYTES % (AUTO) 10.9 %; MEAN CORPUSCULAR HEMOGLOBIN 30.4 pg (27.0-31.0); MEAN CORPUSCULAR HGB CONC 31.8 g/dL (32.0-36.0); MEAN CORPUSCULAR VOLUME 95.8 fL (80.0-94.0); MEAN PLATELET VOLUME 10.8 fL (7.4-11.4); MONOCYTES # (AUTO) 0.4 10^3/uL (0.0-1.0); MONOCYTES % (AUTO) 3.7 %; NEUTROPHILS # (AUTO) 8.9 10^3/uL (1.5-6.6); NEUTROPHILS % (AUTO) 83.2 %; PLT - PLATELET COUNT 139 10^3/uL (130-450); RED BLOOD COUNT 3.78 10^6/uL (4.70-6.10); RED CELL DISTRIBUTION WIDTH 14.7 % (12.0-15.0); WHITE BLOOD COUNT 10.7 x10^3/uL (4.8-10.8)
[2019-08-25 05:07] LABS: VANCOMYCIN,RANDOM 7.8 ug/mL
[2019-08-25 05:11] LABS: CALCIUM 6.7 mg/dL (8.5-10.3); CREATININE 1.4 mg/dL (0.6-1.2); PHOSPHORUS 2.6 mg/dL (2.5-4.6)
[2019-08-25] MEDS: POTASSIUM CHLOR 20 MEQ/100 ML 20 MEQ/100 ML BAG IV SCH ×4 (05:48→11:11)
[2019-08-25 06:05] LABS: VBG PH 7.385 (7.31-7.41)
[2019-08-25] MEDS ORDERED: CALCIUM GLUCONATE 1,000 MG in SODIUM CHLORIDE 0.9% 50 ML IV ONE (07:16)
--- NOTE | 2019-08-25 07:57 | PROVIDER PROGRESS NOTE ---
Assessment/Plan - Problem List (1) Sepsis Qualifiers: Sepsis type: sepsis due to unspecified organism Sepsis acute organ dysfunction status: with acute organ dysfunction Severe sepsis shock status: without septic shock Assessment/Plan: Overall the patient appears to be improving. His white blood cell count today was 10.7 which is effectively normalize and an improvement from 13.5 yesterday. Patient's blood pressure continues to be stable in the 90s. With a map in the 70s. Patient has good urine output and his renal function has steadily been improving. Patient continues to be afebrile. We will continue vancomycin and Zosyn. Patient was transitioned from ICU to [facility] status today. Physical therapy working with patient. (2) Bacteremia Assessment/Plan: On vancomycin and Zosyn (3) Catheter-associated urinary tract infection Qualifiers: Indwelling urinary catheter type: indwelling urethral catheter Encounter ty pe: initial encounter Qualified Code(s): T83.511A - Infection and inflammatory reaction due to indwelling urethral catheter, initial encounter; N39.0 - Urinary tract infection, site not specified Assessment/Plan: Improved/resolved On vancomycin and Zosyn. Urine has been persistently clear. Patient has good urine output. (4) Atrial fibrillation with RVR Assessment/Plan: Heart rate continues to fluctuate between 90 and 120. Continue diltiazem 60 mg p.o. 4 times daily, metoprolol and eliquis (5) Acute renal failure (ARF) Assessment/Plan: Patient's renal function continues to improve. GFR today is 48. Patient has good urine output. (6) Electrolyte imbalance Assessment/Plan: Patient's potassium, magnesium, phosphorus and calcium being replaced per ICU electrolyte protocol (7) Scrotal hernia Assessment/Plan: Nonpainful. Continue to monitor (8) Hematuria Qualifiers: Hematuria type: gross Qualified Code(s): R31.0 - Gross hematuria Assessment/Plan: Resolved - Current Meds Current Meds: Current Medications Generic Name Dose Route Start Last Admin Trade Name Freq PRN Reason Stop Dose Admin Acetaminophen 650 mg 08/23/19 19:26 08/24/19 21:09 Tylenol PO 650 mg Q4HR PRN Administration Pain or Fever > 38C (100.4F) Apixaban 2.5 mg 08/22/19 11:00 08/24/19 21:09 Eliquis PO 2.5 mg BID GLORIA Administration Cholecalciferol 2,000 unit 08/24/19 09:00 08/24/19 08:31 Vitamin D3 PO 2,000 unit DAILY GLORIA Administration Diltiazem HCl 60 mg 08/22/19 17:00 08/25/19 06:03 Cardizem PO 60 mg Q6HR GLORIA Administration Famotidine 20 mg 08/22/19 21:00 08/24/19 21:09 Pepcid PO 20 mg QPM GLORIA Administration Norepinephrine Bitartrate 8 mg 250 mls @ 15 mls/hr 08/19/19 16:00 08/25/19 05:23 / Dextrose IV Not Given .[id number] GLORIA Protocol 8 MCG/MIN Diltiazem HCl 125 mg/ Dextrose 125 mls @ 5 mls/hr 08/19/19 20:00 08/25/19 02:05 IV Not Given .Q25H GLORIA Protocol 5 MG/HR Sodium Chloride 500 mls @ 0 mls/hr 08/22/19 11:53 08/24/19 15:39 Normal Saline 0.9% IV 20 mls/hr Q24H PRN Administration TKO RATE TKO Piperacillin Sod/Tazobactam 100 mls @ 25 mls/hr 08/22/19 16:00 08/25/19 04:20 Sod 3.375 gm/ Sodium Chloride IV Infused Q8H GLORIA Infusion Potassium Chloride 20 meq in 100 mls @ 100 mls/hr 08/25/19 06:00 08/25/19 07:26 Potassium Chloride IV 08/25/19 09:59 Infused Q1H GLORIA Infusion Metoprolol Succinate 100 mg 08/21/19 09:00 08/24/19 09:13 Toprol Xl PO Not Given DAILY COUNT INCLUDES THE [facility] Metoprolol Tartrate 5 mg 08/19/19 21:44 08/20/19 11:59 Lopressor Inj IVP 5 mg Q2HR PRN Administration Tachycardia Mineral Oil 1 applic 08/19/19 15:19 08/25/19 06:15 Cavilon TOP 1 applic PRN PRN Administration Skin Care Multi-Ingredient Ointment 1 applic 08/19/19 15:19 08/19/19 16:16 Zinc Oxide TOP 1 applic PRN PRN Administration Skin Care Multivitamins/Minerals 1 tab 08/21/19 14:00 04/20/20 08:18 Theragran M PO 1 tab DAILYWM GLORIA Administration Polyethylene Glycol 17 gm 08/20/19 09:00 08/24/19 09:13 Miralax PO Not Given DAILY GLORIA Saccharomyces Boulardii 250 mg 08/24/19 17:00 08/24/19 17:04 Florastor PO 250 mg BIDWM GLORIA Administration Sodium Chloride 10 ml 08/19/19 17:00 08/25/19 00:04 Normal Saline Flush 0.9% IVP 10 ml 0100,0900,1700 GLORIA Administration Sodium Chloride 10 ml 08/19/19 11:32 08/25/19 04:45 Normal Saline Flush 0.9% IVP 30 ml PRN PRN Administration NEEDED PER PROVIDER ORDERS - Lab Result Fish Bone Diagrams: 08/25/19 04:25 08/25/19 04:25 - Additional Planning My Orders: My Active Orders 08/24/19 08:00 Clinical Swallow Evaluation [ST] Routine 08/24/19 09:00 Cholecalciferol [Vitamin D3] 2,000 unit PO DAILY 08/24/19 17:00 Saccharomyces Boulardii [Florastor] 250 mg PO BIDWM 08/24/19 Dinner Dysphagia Puree Diet [DIET] 08/25/19 08:00 Potassium Chloride/Water 10 mEq/100 mL q1h (Enter # of bags) Potassium Chlor 10 Meq/100 ml [Potassium Chloride] 10 meq in 100 ml IV Q1H 08/26/19 05:00 BMP - BASIC METABOLIC PANEL [CHEM] DAILYLAB CBC - COMP BLD CT W/AUTO DIFF [HEME] DAILYLAB Subjective - Subjective Patient Reports: Other (Patient seen and examined this morning. He was asleep at the time of exam but readily arouses to verbal stimuli. There were no new complaints or events overnight. His affect continues to be very flat. The patient came in from a memory care center) Objective Vital Signs: Vital Signs - 24 hr 08/24/19 08/24/19 08/24/19 08:00 09:00 10:00 Temperature 36.9 C 36.8 C 36.9 C Heart Rate [ Activity] Heart Rate [ 98 95 110 H Monitoring electrodes] Heart Rate [ Supine] Respiratory 15 17 20 Rate Blood Pressure Blood Pressure [Activity] Blood Pressure 82/57 L 91/61 105/81 H [Left Brachial artery] Blood Pressure [Supine] O2 Saturation 98 98 08/24/19 08/24/19 08/24/19 11:00 11:30 12:00 Temperature 37 C 37.1 C Heart Rate [ 117 H Activity] Heart Rate [ 110 H 117 H Monitoring electrodes] Heart Rate [ 118 H Supine] Respiratory 18 17 Rate Blood Pressure Blood Pressure 99/66 [Activity] Blood Pressure 98/67 99/66 [Left Brachial artery] Blood Pressure 98/67 [Supine] O2 Saturation 100 100 08/24/19 08/24/19 08/24/19 12:17 12:50 13:00 Temperature 37.2 C Heart Rate [ 117 H Activity] Heart Rate [ 115 H Monitoring electrodes] Heart Rate [ 119 H Supine] Respiratory 14 Rate Blood Pressure 101/68 Blood Pressure 101/68 [Activity] Blood Pressure 98/67 [Left Brachial artery] Blood Pressure 101/68 [Supine] O2 Saturation 99 08/24/19 08/24/19 08/24/19 14:00 15:00 16:00 Temperature 37.2 C 37.3 C 37.3 C Heart Rate [ Activity] Heart Rate [ 110 H 107 H 103 H Monitoring electrodes] Heart Rate [ Supine] Respiratory 16 17 16 Rate Blood Pressure Blood Pressure [Activity] Blood Pressure 111/94 H 92/64 88/64 L [Left Brachial artery] Blood Pressure [Supine] O2 Saturation 100 100 99 08/24/19 08/24/19 08/24/19 17:00 18:00 18:01 Temperature 37.3 C 37.5 C Heart Rate [ Activity] Heart Rate [ 109 H 124 H Monitoring electrodes] Heart Rate [ Supine] Respiratory 18 19 Rate Blood Pressure 97/59 L Blood Pressure [Activity] Blood Pressure 97/72 97/59 L [Left Brachial artery] Blood Pressure [Supine] O2 Saturation 100 99 08/24/19 08/24/19 08/24/19 19:00 20:00 21:00 Temperature 37.7 C H 37.7 C H Heart Rate [ Activity] Heart Rate [ 107 H 96 114 H Monitoring electrodes] Heart Rate [ Supine] Respiratory 17 19 20 Rate Blood Pressure Blood Pressure [Activity] Blood Pressure 94/68 102/62 99/66 [Left Brachial artery] Blood Pressure [Supine] O2 Saturation 98 95 08/24/19 08/24/19 08/25/19 22:00 23:00 00:00 Temperature 36.6 C 36.3 C L Heart Rate [ Activity] Heart Rate [ 95 100 105 H Monitoring electrodes] Heart Rate [ Supine] Respiratory 17 16 13 Rate Blood Pressure Blood Pressure [Activity] Blood Pressure 82/60 L 105/77 97/64 [Left Brachial artery] Blood Pressure [Supine] O2 Saturation 100 99 08/25/19 08/25/19 08/25/19 00:03 01:00 02:00 Temperature Heart Rate [ Activity] Heart Rate [ 82 84 Monitoring electrodes] Heart Rate [ Supine] Respiratory 17 10 L Rate Blood Pressure 97/64 Blood Pressure [Activity] Blood Pressure 82/65 L 94/74 [Left Brachial artery] Blood Pressure [Supine] O2 Saturation 96 100 08/25/19 08/25/19 08/25/19 03:00 04:00 05:00 Temperature 36.1 C L Heart Rate [ Activity] Heart Rate [ 100 96 111 H Monitoring electrodes] Heart Rate [ Supine] Respiratory 16 16 16 Rate Blood Pressure Blood Pressure [Activity] Blood Pressure 108/71 97/56 L 122/72 [Left Brachial artery] Blood Pressure [Supine] O2 Saturation 99 99 100 08/25/19 08/25/19 08/25/19 06:00 06:03 07:00 Temperature 36.3 C L Heart Rate [ Activity] Heart Rate [ 108 H 105 H Monitoring electrodes] Heart Rate [ Supine] Respiratory 17 17 Rate Blood Pressure 108/90 H Blood Pressure [Activity] Blood Pressure 108/90 H 97/54 L [Left Brachial artery] Blood Pressure [Supine] O2 Saturation 99 96 Oxygen O2 Source Room air I&O (Last 24 Hrs): Intake and Output Totals x24h 08/23/19 08/24/19 08/25/19 23:59 23:59 23:59 Intake Total 2821.667 1330 450 Output Total 2995 2057 365 Balance -173.333 -727 85 General: Alert, No acute distress, Other (lethargic) HEENT: PERRLA, EOMI Neck: Supple, No JVD Neuro: Alert, Non Focal, Other (flat affec) Cardiovascular: Other (irregularly irregular) Respiratory: Chest non-tender, No respiratory distress, Breath sounds nml Abdomen: Normal bowel sounds, Soft, No tenderness Genitourinary: Inguinal Hernia Extremities: No clubbing, No cyanosis, Other (3+ edema in feet bilaterally) Skin: No rashes - Results Results: Laboratory Results WBC 10.7 x10^3/uL (4.8-10.8) 08/25/19 04:25 RBC 3.78 10^6/uL (4.70-6.10) L 08/25/19 04:25 Hgb 11.5 g/dL (14.0-18.0) L 08/25/19 04:25 Hct 36.2 % (42.0-52.0) L 08/25/19 04:25 MCV 95.8 fL (80.0-94.0) H 08/25/19 04:25 MCH 30.4 pg (27.0-31.0) 08/25/19 04:25 MCHC 31.8 g/dL (32.0-36.0) L 08/25/19 04:25 RDW 14.7 % (12.0-15.0) 08/25/19 04:25 Plt Count 139 10^3/uL (130-450) 08/25/19 04:25 MPV 10.8 fL (7.4-11.4) 08/25/19 04:25 Neut # (Auto) 8.9 10^3/uL (1.5-6.6) H 08/25/19 04:25 Lymph # (Auto) 1.2 10^3/uL (1.5-3.5) L 08/25/19 04:25 Ocean # (Auto) 0.4 10^3/uL (0.0-1.0) 08/25/19 04:25 Eos # (Auto) 0.1 10^3/uL (0.0-0.7) 08/25/19 04:25 Baso # (Auto) 0.0 10^3/uL (0.0-0.1) 08/25/19 04:25 Absolute Nucleated RBC 0.00 x10^3/uL 08/25/19 04:25 Total Counted 100 08/19/19 10:14 Band Neuts % (Manual) 6 % (0-10) 08/19/19 10:14 Abnorm Lymph % (Manual) 0 % 08/19/19 10:14 Nucleated RBC % 0.0 /100WBC 08/25/19 04:25 Neutrophils # (Manual) 29.4 10^3/uL (1.5-6.6) H 08/19/19 10:14 Lymphocytes # (Manual) 0.0 10^3/uL (1.5-3.5) L 08/19/19 10:14 Monocytes # (Manual) 0.0 10^3/uL (0.0-1.0) 08/19/19 10:14 Eosinophils # (Manual) 0.0 10^3/uL (0-0.7) 08/19/19 10:14 Basophils # (Manual) 0.0 10^3/uL (0-0.1) 08/19/19 10:14 Differential Comment MANUAL DIFFERENTIAL 08/19/19 10:14 Manual Slide Review Indicated 08/19/19 10:14 PT 18.4 secs (9.9-12.6) H 08/21/19 07:55 INR 1.7 (0.8-1.2) H 08/21/19 07:55 APTT 32.2 secs (24.9-33.3) 08/20/19 04:30 VBG pH 7.385 (7.31-7.41) 08/25/19 05:56 Ionized Calcium 1.03 mmol/L (1.15-1.33) L 08/25/19 05:56 Sodium 148 mmol/L (135-145) H 08/25/19 04:25 Potassium 2.9 mmol/L (3.5-5.0) L 08/25/19 04:25 Chloride 118 mmol/L (101-111) H 08/25/19 04:25 Carbon Dioxide 22 mmol/L (21-32) 08/25/19 04:25 Anion Gap 8.0 (6-13) 08/25/19 04:25 BUN 32 mg/dL (6-20) H 08/25/19 04:25 Creatinine 1.4 mg/dL (0.6-1.2) H 08/25/19 04:25 Estimated GFR (MDRD) 48 (>89) L 08/25/19 04:25 Glucose 108 mg/dL (70-100) H 08/25/19 04:25 Lactic Acid 1.6 mmol/L (0.5-2.2) 08/20/19 04:30 Uric Acid 6.5 mg/dL (2.6-7.2) 08/23/19 08:10 Calcium 6.7 mg/dL (8.5-10.3) L 08/25/19 04:25 Phosphorus 2.6 mg/dL (2.5-4.6) 08/25/19 04:25 Magnesium 2.0 mg/dL (1.7-2.8) 08/25/19 04:25 Total Bilirubin 0.7 mg/dL (0.2-1.0) 08/20/19 04:30 AST 24 IU/L (10-42) 08/20/19 04:30 ALT 24 IU/L (10-60) 08/20/19 04:30 Alkaline Phosphatase 77 IU/L (42-121) 08/20/19 04:30 Total Creatine Kinase 51 IU/L (22-269) 08/19/19 08:38 Troponin I High Sens 14.0 ng/L (2.3-19.7) 08/19/19 18:14 Total Protein 5.1 g/dL (6.7-8.2) L 08/20/19 04:30 Albumin 1.7 g/dL (3.2-5.5) L 08/25/19 04:25 Globulin 3.0 g/dL (2.1-4.2) 08/20/19 04:30 Albumin/Globulin Ratio 0.7 (1.0-2.2) L 08/20/19 04:30 Lipase 34 U/L (22-51) 08/19/19 08:38 Urine Color RED/BLOODY 08/19/19 08:41 Urine Clarity CLOUDY (CLEAR) 08/19/19 08:41 Urine pH 8.5 PH (5.0-7.5) H 08/19/19 08:41 Ur Specific Brandon 1.010 (1.002-1.030) 08/19/19 08:41 Urine Protein 100 mg/dL (NEGATIVE) H 08/19/19 08:41 Urine Glucose (UA) NEGATIVE mg/dL (NEGATIVE) 08/19/19 08:41 Urine Ketones NEGATIVE mg/dL (NEGATIVE) 08/19/19 08:41 Urine Occult Blood LARGE (NEGATIVE) H 08/19/19 08:41 Urine Nitrite POSITIVE (NEGATIVE) H 08/19/19 08:41 Urine Bilirubin NEGATIVE (NEGATIVE) 08/19/19 08:41 Urine Urobilinogen 0.2 (NORMAL) E.U./dL (NORMAL) 08/19/19 08:41 Ur Leukocyte Esterase LARGE (NEGATIVE) H 08/19/19 08:41 Urine RBC TNTC /HPF (0-5) H 08/19/19 08:41 Urine WBC >25 /HPF (0-3) H 08/19/19 08:41 Ur Squamous Epith Cells NONE SEEN (<= Few) 08/19/19 08:41 Urine Bacteria Few /HPF (None Seen) 08/19/19 08:41 Ur Microscopic Review INDICATED 08/19/19 08:41 Urine Culture Comments INDICATED 08/19/19 08:41 Nasal Screen MRSA (PCR) NEGATIVE (NEGATIVE) 08/19/19 13:08 Last Dose Date 08/23/19 08/25/19 04:25 Last Dose Time 1200 08/25/19 04:25 Random Vancomycin 7.8 ug/mL 08/25/19 04:25 Ethyl Alcohol < 5.0 mg/dL 08/19/19 08:38 Coronavirus (PCR) NEGATIVE 08/19/19 12:10 Blood Type O NEGATIVE 08/20/19 04:30 Blood Type Recheck O NEGATIVE 08/20/19 06:55 Antibody Screen NEGATIVE 08/20/19 04:30 Sepsis Event Note (H) - Evaluation Current Stage of Sepsis: Sepsis Possible source of Sepsis: positive: Pulmonary, Genitourinary - Sepsis Criteria Sepsis Criteria: Recorded Heart Rate greater than 90 bpm, Respiratory: Increasing oxygen requirements, WBC count greater than 12,000 or less than 4000, [employer]: altered consciousness (unrelated to primary neuro pathology), SBP less than 90 mmHg, Metabolic: lactate > 2 mmol/L ABX Reporting Has patient been on IV antibiotics over the past 48 hours?: Yes
[2019-08-25] MEDS ORDERED: POTASSIUM CHLOR 10 MEQ/100 ML 10 MEQ/100 ML BAG IV SCH (08:00)
[2019-08-25] MEDS: METOPROLOL SUCCINATE 50 MG TABLET PO SCH (08:38)
[2019-08-25] MEDS: CHOLECALCIFEROL 1,000 UNIT TABLET PO SCH (08:38)
[2019-08-25] MEDS: APIXABAN 2.5 MG TABLET PO SCH ×2 (08:38→20:25)
[2019-08-25] MEDS: SACCHAROMYCES BOULARDII 250 MG CAPSULE PO SCH ×2 (08:39→18:07)
[2019-08-25] MEDS: MULTIVITAMIN W/MINERALS TABLET PO SCH (08:39)
[2019-08-25] MEDS: polyethylene glycoL 3350 17 GM PACKET PO SCH (09:21)
--- NOTE | 2019-08-25 09:23 | PHARMACY PROGRESS NOTE ---
- Therapy Status Therapy status: Awaiting steady state Treatment indication: SEPSIS Trough goal: 15-20 Concurrent antibiotics: ZOSYN - MAYA Risk Risk level for Acute Kidney Injury: High Acute Kidney Injury risk factors: Piperacillin/Tozobactam, Baseline CrCl <50, Goal trough >15, Admission to ICU, Sepsis - Monitoring and Recommendation Clinical response to treatment: I&O Previous 24 hours 08/23/19 08/24/19 08/25/19 23:59 23:59 23:59 Intake Total 2821.667 1330 550 Output Total 2995 2057 430 Balance -173.333 -727 120 Lab Results 08/25/19 08/24/19 08/23/19 04:25 05:30 04:45 BUN 32 H 44 H 54 H Creatinine 1.4 H 1.6 H 1.7 H Estimated GFR (MDRD) 48 L 41 L 38 L 08/22/19 08/21/19 08/21/19 06:24 12:00 04:25 BUN 68 H 88 H* 96 H* Creatinine 1.9 H 2.3 H 2.5 H Estimated GFR (MDRD) 34 L 27 L 24 L 08/20/19 08/20/19 08/19/19 18:30 04:30 08:38 BUN 117 H* 137 H* 156 H* Creatinine 3.0 H 3.6 H 4.3 H Estimated GFR (MDRD) 20 L 16 L 13 L Vancomycin Monitoring 08/25/19 04:25 Random Vancomycin 7.8 Cultures 08/23/19 09:10 Blood Blood Culture - Preliminary NO GROWTH AFTER 2 DAYS 08/23/19 08:10 Blood - Central Line Blood Culture - Preliminary NO GROWTH AFTER 2 DAYS 08/19/19 08:41 Urine,Catheterized Urine Culture - Final Enterococcus Faecalis. Staphylococcus Caro Ssp.urealy 08/19/19 10:14 Blood Blood Culture - Final Staphylococcus Epidermidis 08/19/19 08:38 Blood Blood Culture - Final Staphylococcus Epidermidis Monitoring plan: Daily serum creatinine, Draw trough early (TROUGH SCHEDULED FOR 08/26 @ 0900 (EARLY))
[2019-08-25] MEDS ORDERED: VANCOMYCIN INJ 1 GM, VANCOMYCIN INJ 500 MG in SODIUM CHLORIDE 0.9% 500 ML IV SCH (10:00)
[2019-08-25 14:51] LABS: CREATININE 1.4 mg/dL (0.6-1.2)
[2019-08-25 14:59] LABS: CALCIUM 6.4 mg/dL (8.5-10.3)
[2019-08-25] MEDS: SODIUM CHLORIDE 0.9% 500 ML IV PRN (16:02)
[2019-08-25] MEDS ORDERED: FLUDROCORTISONE 0.1 MG TABLET PO SCH (20:00)
[2019-08-25] MEDS: FAMOTIDINE 20 MG TABLET PO SCH (20:25)
[2019-08-25] MEDS: ACETAMINOPHEN 325 MG TABLET PO PRN (22:29)
[2019-08-26] MEDS: PIPERACILLIN/TAZOBACTAM 3.375 GM in SODIUM CHLORIDE 0.9% MINIBAG 100 ML IV SCH ×3 (00:11→16:34)
[2019-08-26] MEDS: SODIUM CHLORIDE FLUSH 0.9% 10 ML SYRINGE IVP SCH ×3 (00:13→17:23)
[2019-08-26] MEDS: MIN OIL/DIMETHICON/COCONUT OIL 92 GM TUBE TOP PRN ×3 (01:45→13:38)
[2019-08-26] MEDS: SODIUM CHLORIDE FLUSH 0.9% 10 ML SYRINGE IVP PRN ×2 (04:48→12:18)
[2019-08-26 05:48] LABS: BASOPHILS % (AUTO) 0.3 %; EOSINOPHILS # (AUTO) 0.2 10^3/uL (0.0-0.7); EOSINOPHILS % (AUTO) 1.8 %; HGB - HEMOGLOBIN 10.7 g/dL (14.0-18.0); LYMPHOCYTES # (AUTO) 1.3 10^3/uL (1.5-3.5); LYMPHOCYTES % (AUTO) 15.1 %; MEAN CORPUSCULAR HEMOGLOBIN 31.7 pg (27.0-31.0); MEAN CORPUSCULAR VOLUME 98.8 fL (80.0-94.0); MEAN PLATELET VOLUME 11.4 fL (7.4-11.4); MONOCYTES # (AUTO) 0.5 10^3/uL (0.0-1.0); MONOCYTES % (AUTO) 5.1 %; NEUTROPHILS # (AUTO) 6.7 10^3/uL (1.5-6.6); NEUTROPHILS % (AUTO) 76.9 %; PLT - PLATELET COUNT 140 10^3/uL (130-450); RED BLOOD COUNT 3.38 10^6/uL (4.70-6.10); WHITE BLOOD COUNT 8.8 x10^3/uL (4.8-10.8)
[2019-08-26 06:02] LABS: CALCIUM 6.8 mg/dL (8.5-10.3); CREATININE 1.4 mg/dL (0.6-1.2); PHOSPHORUS 2.1 mg/dL (2.5-4.6)
--- NOTE | 2019-08-26 07:25 | PROVIDER PROGRESS NOTE ---
Assessment/Plan - Problem List (1) Sepsis Qualifiers: Sepsis type: sepsis due to unspecified organism Sepsis acute organ dysfunction status: with acute organ dysfunction Severe sepsis shock status: without septic shock Assessment/Plan: Patient continues to improve. We will continue vancomycin and Zosyn. Will prescribe Cipro upon discharge Considering possible discharge tomorrow. Patient would go back to the [facility] with home health. (2) Bacteremia Assessment/Plan: Currently on vancomycin and Zosyn. We will order Cipro upon discharge for 5 days (3) Catheter-associated urinary tract infection Qualifiers: Indwelling urinary catheter type: indwelling urethral catheter Encounter type: initial encounter Qualified Code(s): T83.511A - Infection and inflammatory reaction due to indwelling urethral catheter, initial encounter; N39.0 - Urinary tract infection, site not specified Assessment/Plan: Currently on vancomycin and Zosyn. Will order Cipro for 5 days upon discharge. Patient will need to follow-up with urology with regards to his indwelling urinary catheter. (4) Atrial fibrillation with RVR Assessment/Plan: Improved/stable Continue diltiazem 60 mg p.o. 4 times daily, metoprolol 100 mg daily and Eliquis. (6) Electrolyte imbalance Assessment/Plan: Will replace and recheck (7) Scrotal hernia Assessment/Plan: Nonpainful. Readily reducible. Continue to monitor (8) Hematuria Qualifiers: Hematuria type: gross Qualified Code(s): R31.0 - Gross hematuria Assessment/Plan: Resolved - Current Meds Current Meds: Current Medications Generic Name Dose Route Start Last Admin Trade Name Freq PRN Reason Stop Dose Admin Acetaminophen 650 mg 08/23/19 19:26 08/25/19 22:29 Tylenol PO 650 mg Q4HR PRN Administration Pain or Fever > 38C (100.4F) Apixaban 2.5 mg 08/22/19 11:00 08/25/19 20:25 Eliquis PO 2.5 mg BID GLORIA Administration Cholecalciferol 2,000 unit 08/24/19 09:00 08/25/19 08:38 Vitamin D3 PO 2,000 unit DAILY GLORIA Administration Famotidine 20 mg 08/22/19 21:00 08/25/19 20:25 Pepcid PO 20 mg QPM GLORIA Administration Sodium Chloride 500 mls @ 0 mls/hr 08/22/19 11:53 08/25/19 16:10 Normal Saline 0.9% IV 0 mls/hr Q24H PRN Infusion TKO RATE TKO Piperacillin Sod/Tazobactam 100 mls @ 25 mls/hr 08/22/19 16:00 08/26/19 04:41 Sod 3.375 gm/ Sodium Chloride IV Infused Q8H GLORIA Infusion Metoprolol Succinate 100 mg 08/21/19 09:00 08/25/19 08:38 Toprol Xl PO 100 mg DAILY GLORIA Administration Metoprolol Tartrate 5 mg 08/19/19 21:44 08/20/19 11:59 Lopressor Inj IVP 5 mg Q2HR PRN Administration Tachycardia Mineral Oil 1 applic 08/19/19 15:19 08/26/19 05:00 Cavilon TOP 1 applic PRN PRN Administration Skin Care Multi-Ingredient Ointment 1 applic 08/19/19 15:19 08/19/19 16:16 Zinc Oxide TOP 1 applic PRN PRN Administration Skin Care Multivitamins/Minerals 1 tab 08/21/19 14:00 08/25/19 08:39 Theragran M PO 1 tab DAILYWM GLORIA Administration Polyethylene Glycol 17 gm 08/20/19 09:00 08/25/19 09:21 Miralax PO Not Given DAILY GLORIA Saccharomyces Boulardii 250 mg 08/24/19 17:00 08/25/19 18:07 Florastor PO 250 mg BIDWM GLORIA Administration Sodium Chloride 10 ml 08/19/19 17:00 08/26/19 00:13 Normal Saline Flush 0.9% IVP Not Given 0100,0900,1700 GLORIA Sodium Chloride 10 ml 08/19/19 11:32 08/26/19 04:48 Normal Saline Flush 0.9% IVP 30 ml PRN PRN Administration NEEDED PER PROVIDER ORDERS - Lab Result Fish Bone Diagrams: 08/26/19 04:50 08/26/19 04:50 - Additional Planning My Orders: My Active Orders 08/26/19 09:00 diltiaZEM CD [Cardizem Cd] 180 mg PO DAILY Subjective - Subjective Patient Reports: Other (Patient seen and examined this morning. He was awake and appeared more alert today. However he was still would not readily answer questions I asked.There were no events reported overnight) Objective Vital Signs: Vital Signs - 24 hr 08/25/19 08/25/19 08/25/19 08:00 09:00 10:00 Temperature 36.5 C 36.9 C Heart Rate [ 94 97 84 Monitoring electrodes] Respiratory 16 19 19 Rate Blood Pressure Blood Pressure 89/63 L 98/73 101/69 [Left Brachial artery] O2 Saturation 98 100 08/25/19 08/25/19 08/25/19 11:00 11:57 12:00 Temperature 36.7 C Heart Rate [ 91 95 Monitoring electrodes] Respiratory 18 24 Rate Blood Pressure 102/67 Blood Pressure 90/51 L 102/67 [Left Brachial artery] O2 Saturation 95 08/25/19 08/25/19 08/25/19 13:00 15:00 16:00 Temperature 36.8 C 37.5 C Heart Rate [ 101 H 95 96 Monitoring electrodes] Respiratory 22 22 20 Rate Blood Pressure Blood Pressure 113/75 103/68 93/68 [Left Brachial artery] O2 Saturation 100 08/25/19 08/25/19 08/26/19 17:57 20:22 00:04 Temperature 37.9 C H 37.3 C Heart Rate [ 112 H 89 Monitoring electrodes] Respiratory 21 17 Rate Blood Pressure 100/65 Blood Pressure 94/70 84/60 L [Left Brachial artery] O2 Saturation 99 99 08/26/19 08/26/19 08/26/19 00:13 04:47 06:30 Temperature 36.4 C L Heart Rate [ 108 H Monitoring electrodes] Respiratory 13 Rate Blood Pressure 84/60 L 95/60 Blood Pressure 99/78 [Left Brachial artery] O2 Saturation 100 Oxygen O2 Source Room air I&O (Last 24 Hrs): Intake and Output Totals x24h 08/24/19 08/25/19 08/26/19 23:59 23:59 23:59 Intake Total 1330 4559.667 600 Output Total 2057 925 600 Balance -727 3634.667 0 General: Alert, No acute distress HEENT: PERRLA, EOMI Neck: Supple, No JVD Neuro: Alert Cardiovascular: Other (irregularly irregular) Respiratory: Chest non-tender, No respiratory distress, Breath sounds nml Abdomen: Normal bowel sounds, Soft, No tenderness Genitourinary: Inguinal Hernia Extremities: No clubbing, No cyanosis, Other (2+ edema in feet) Skin: No rashes - Results Results: Laboratory Results WBC 8.8 x10^3/uL (4.8-10.8) 08/26/19 04:50 RBC 3.38 10^6/uL (4.70-6.10) L 08/26/19 04:50 Hgb 10.7 g/dL (14.0-18.0) L 08/26/19 04:50 Hct 33.4 % (42.0-52.0) L 08/26/19 04:50 MCV 98.8 fL (80.0-94.0) H 08/26/19 04:50 MCH 31.7 pg (27.0-31.0) H 08/26/19 04:50 MCHC 32.0 g/dL (32.0-36.0) 08/26/19 04:50 RDW 15.0 % (12.0-15.0) 08/26/19 04:50 Plt Count 140 10^3/uL (130-450) 08/26/19 04:50 MPV 11.4 fL (7.4-11.4) 08/26/19 04:50 Neut # (Auto) 6.7 10^3/uL (1.5-6.6) H 08/26/19 04:50 Lymph # (Auto) 1.3 10^3/uL (1.5-3.5) L 08/26/19 04:50 [place] # (Auto) 0.5 10^3/uL (0.0-1.0) 08/26/19 04:50 Eos # (Auto) 0.2 10^3/uL (0.0-0.7) 08/26/19 04:50 Baso # (Auto) 0.0 10^3/uL (0.0-0.1) 08/26/19 04:50 Absolute Nucleated RBC 0.00 x10^3/uL 08/26/19 04:50 Total Counted 100 08/19/19 10:14 Band Neuts % (Manual) 6 % (0-10) 08/19/19 10:14 Abnorm Lymph % (Manual) 0 % 08/19/19 10:14 Nucleated RBC % 0.0 /100WBC 08/26/19 04:50 Neutrophils # (Manual) 29.4 10^3/uL (1.5-6.6) H 08/19/19 10:14 Lymphocytes # (Manual) 0.0 10^3/uL (1.5-3.5) L 08/19/19 10:14 Monocytes # (Manual) 0.0 10^3/uL (0.0-1.0) 08/19/19 10:14 Eosinophils # (Manual) 0.0 10^3/uL (0-0.7) 08/19/19 10:14 Basophils # (Manual) 0.0 10^3/uL (0-0.1) 08/19/19 10:14 Differential Comment MANUAL DIFFERENTIAL 08/19/19 10:14 Manual Slide Review Indicated 08/19/19 10:14 PT 18.4 secs (9.9-12.6) H 08/21/19 07:55 INR 1.7 (0.8-1.2) H 08/21/19 07:55 APTT 32.2 secs (24.9-33.3) 08/20/19 04:30 VBG pH 7.385 (7.31-7.41) 08/25/19 05:56 Ionized Calcium 1.03 mmol/L (1.15-1.33) L 08/25/19 05:56 Sodium 148 mmol/L (135-145) H 08/26/19 04:50 Potassium 3.2 mmol/L (3.5-5.0) L 08/26/19 04:50 Chloride 118 mmol/L (101-111) H 08/26/19 04:50 Carbon Dioxide 23 mmol/L (21-32) 08/26/19 04:50 Anion Gap 7.0 (6-13) 08/26/19 04:50 BUN 30 mg/dL (6-20) H 08/26/19 04:50 Creatinine 1.4 mg/dL (0.6-1.2) H 08/26/19 04:50 Estimated GFR (MDRD) 48 (>89) L 08/26/19 04:50 Glucose 101 mg/dL (70-100) H 08/26/19 04:50 POC Whole Bld Glucose 123 mg/dL (70 - 100) H 08/20/19 11:22 Lactic Acid 1.6 mmol/L (0.5-2.2) 08/20/19 04:30 Uric Acid 6.5 mg/dL (2.6-7.2) 08/23/19 08:10 Calcium 6.8 mg/dL (8.5-10.3) L 08/26/19 04:50 Phosphorus 2.1 mg/dL (2.5-4.6) L 08/26/19 04:50 Magnesium 2.0 mg/dL (1.7-2.8) 08/25/19 04:25 Total Bilirubin 0.7 mg/dL (0.2-1.0) 08/20/19 04:30 AST 24 IU/L (10-42) 08/20/19 04:30 ALT 24 IU/L (10-60) 08/20/19 04:30 Alkaline Phosphatase 77 IU/L (42-121) 08/20/19 04:30 Total Creatine Kinase 51 IU/L (22-269) 08/19/19 08:38 Troponin I High Sens 14.0 ng/L (2.3-19.7) 08/19/19 18:14 Total Protein 5.1 g/dL (6.7-8.2) L 08/20/19 04:30 Albumin 1.7 g/dL (3.2-5.5) L 08/25/19 04:25 Globulin 3.0 g/dL (2.1-4.2) 08/20/19 04:30 Albumin/Globulin Ratio 0.7 (1.0-2.2) L 08/20/19 04:30 Lipase 34 U/L (22-51) 08/19/19 08:38 Urine Color RED/BLOODY 08/19/19 08:41 Urine Clarity CLOUDY (CLEAR) 08/19/19 08:41 Urine pH 8.5 PH (5.0-7.5) H 08/19/19 08:41 Ur Specific [place] 1.010 (1.002-1.030) 08/19/19 08:41 Urine Protein 100 mg/dL (NEGATIVE) H 08/19/19 08:41 Urine Glucose (UA) NEGATIVE mg/dL (NEGATIVE) 08/19/19 08:41 Urine Ketones NEGATIVE mg/dL (NEGATIVE) 08/19/19 08:41 Urine Occult Blood LARGE (NEGATIVE) H 08/19/19 08:41 Urine Nitrite POSITIVE (NEGATIVE) H 08/19/19 08:41 Urine Bilirubin NEGATIVE (NEGATIVE) 08/19/19 08:41 Urine Urobilinogen 0.2 (NORMAL) E.U./dL (NORMAL) 08/19/19 08:41 Ur Leukocyte Esterase LARGE (NEGATIVE) H 08/19/19 08:41 Urine RBC TNTC /HPF (0-5) H 08/19/19 08:41 Urine WBC >25 /HPF (0-3) H 08/19/19 08:41 Ur Squamous Epith Cells NONE SEEN (<= Few) 08/19/19 08:41 Urine Bacteria Few /HPF (None Seen) 08/19/19 08:41 Ur Microscopic Review INDICATED 08/19/19 08:41 Urine Culture Comments INDICATED 08/19/19 08:41 Nasal Screen MRSA (PCR) NEGATIVE (NEGATIVE) 08/19/19 13:08 Last Dose Date 08/23/19 08/25/19 04:25 Last Dose Time 1200 08/25/19 04:25 Random Vancomycin 7.8 ug/mL 08/25/19 04:25 Ethyl Alcohol < 5.0 mg/dL 08/19/19 08:38 Coronavirus (PCR) NEGATIVE 08/19/19 12:10 Blood Type O NEGATIVE 08/20/19 04:30 Blood Type Recheck O NEGATIVE 08/20/19 06:55 Antibody Screen NEGATIVE 08/20/19 04:30 Sepsis Event Note (H) - Evaluation Current Stage of Sepsis: Sepsis Possible source of Sepsis: positive: Pulmonary, Genitourinary - Sepsis Criteria Sepsis Criteria: Recorded Heart Rate greater than 90 bpm, Respiratory: Increasing oxygen requirements, WBC count greater than 12,000 or less than 4000, [employer]: altered consciousness (unrelated to primary neuro pathology), SBP less than 90 mmHg, Metabolic: lactate > 2 mmol/L ABX Reporting Has patient been on IV antibiotics over the past 48 hours?: Yes
[2019-08-26] MEDS: SACCHAROMYCES BOULARDII 250 MG CAPSULE PO SCH ×2 (08:16→17:21)
[2019-08-26] MEDS: METOPROLOL SUCCINATE 50 MG TABLET PO SCH (08:16)
[2019-08-26] MEDS: CHOLECALCIFEROL 1,000 UNIT TABLET PO SCH (08:16)
[2019-08-26] MEDS: APIXABAN 2.5 MG TABLET PO SCH ×2 (08:16→21:24)
[2019-08-26] MEDS: MULTIVITAMIN W/MINERALS TABLET PO SCH (08:16)
[2019-08-26] MEDS ORDERED: CALCIUM GLUCONATE 2,000 MG in SODIUM CHLORIDE 0.9% 100ML 100 ML IV ONE (09:00)
[2019-08-26] MEDS ORDERED: diltiaZEM CD 120 MG CAPSULE PO SCH (09:00)
[2019-08-26] MEDS: polyethylene glycoL 3350 17 GM PACKET PO SCH (09:10)
[2019-08-26] MEDS: POTASSIUM CHLOR 10 MEQ/100 ML 10 MEQ/100 ML BAG IV SCH ×6 (09:10→14:09)
[2019-08-26] MEDS: VANCOMYCIN INJ 1 GM in SODIUM CHLORIDE 0.9% 250 ML IV SCH (10:43)
[2019-08-26] MEDS ORDERED: POTASSIUM PHOSPHATE 15 MMOL in SODIUM CHLORIDE 0.9% 250 ML IV ONE (15:00)
[2019-08-26] MEDS: FAMOTIDINE 20 MG TABLET PO SCH (21:24)
[2019-08-27] MEDS: PIPERACILLIN/TAZOBACTAM 3.375 GM in SODIUM CHLORIDE 0.9% MINIBAG 100 ML IV SCH ×4 (00:45→23:48)
[2019-08-27] MEDS: SODIUM CHLORIDE FLUSH 0.9% 10 ML SYRINGE IVP SCH ×4 (04:18→23:49)
[2019-08-27] MEDS: METOPROLOL SUCCINATE 50 MG TABLET PO SCH (08:09)
[2019-08-27] MEDS: APIXABAN 2.5 MG TABLET PO SCH ×2 (08:09→21:15)
[2019-08-27] MEDS: SACCHAROMYCES BOULARDII 250 MG CAPSULE PO SCH ×2 (08:09→17:14)
[2019-08-27] MEDS: MULTIVITAMIN W/MINERALS TABLET PO SCH (08:09)
[2019-08-27] MEDS: CHOLECALCIFEROL 1,000 UNIT TABLET PO SCH (08:09)
[2019-08-27] MEDS: polyethylene glycoL 3350 17 GM PACKET PO SCH (08:13)
[2019-08-27] MEDS ORDERED: POTASSIUM CHLORIDE 20 MEQ TABLET PO ONE (09:06)
[2019-08-27 09:14] LABS: VANCOMYCIN,TROUGH 16.7 ug/mL (10.0-20.0)
[2019-08-27] MEDS ORDERED: DEXTROSE 5% 1,000 ML IV SCH (10:00)
--- NOTE | 2019-08-27 10:01 | PHARMACY PROGRESS NOTE ---
- Therapy Status Therapy status: Trough therapeutic Basis for treatment: Culture result Treatment indication: Enterococcus in Urine Trough goal: 15-20 - MAYA Risk Risk level for Acute Kidney Injury: High Acute Kidney Injury risk factors: Piperacillin/Tozobactam, Baseline CrCl <50, Goal trough >15, Admission to ICU, Sepsis - Monitoring and Recommendation Clinical response to treatment: I&O Previous 24 hours 08/25/19 08/26/19 08/27/19 23:59 23:59 23:59 Intake Total 4559.667 4099.783 460 Output Total 925 1350 725 Balance 3634.667 2749.783 -265 Lab Results 08/26/19 08/25/19 08/25/19 04:50 14:20 04:25 BUN 30 H 31 H 32 H Creatinine 1.4 H 1.4 H 1.4 H Estimated GFR (MDRD) 48 L 48 L 48 L 08/24/19 08/23/19 08/22/19 05:30 04:45 06:24 BUN 44 H 54 H 68 H Creatinine 1.6 H 1.7 H 1.9 H Estimated GFR (MDRD) 41 L 38 L 34 L 08/21/19 08/21/19 08/20/19 12:00 04:25 18:30 BUN 88 H* 96 H* 117 H* Creatinine 2.3 H 2.5 H 3.0 H Estimated GFR (MDRD) 27 L 24 L 20 L 08/20/19 08/19/19 04:30 08:38 BUN 137 H* 156 H* Creatinine 3.6 H 4.3 H Estimated GFR (MDRD) 16 L 13 L Vancomycin Monitoring 08/27/19 08/25/19 08:54 04:25 Vancomycin Trough 16.7 Random Vancomycin 7.8 Cultures 08/23/19 09:10 Blood Blood Culture - Preliminary NO GROWTH AFTER 2 DAYS 08/23/19 08:10 Blood - Central Line Blood Culture - Preliminary NO GROWTH AFTER 2 DAYS 08/19/19 08:41 Urine,Catheterized Urine Culture - Final Enterococcus Faecalis. Staphylococcus Caro Ssp.urealy 08/19/19 10:14 Blood Blood Culture - Final Staphylococcus Epidermidis 08/19/19 08:38 Blood Blood Culture - Final Staphylococcus Epidermidis Monitoring plan: Daily serum creatinine, Draw trough early (TROUGH SCHEDULED FOR 08/26 @ 0900 (EARLY)) Areas for additional monitoring: IV to PO when appropriate, Therapy de- escalation based on culture results Pharmacy recommendation: Continue current regime
[2019-08-27] MEDS: VANCOMYCIN INJ 1 GM in SODIUM CHLORIDE 0.9% 250 ML IV SCH (10:11)
--- NOTE | 2019-08-27 10:58 | PROVIDER PROGRESS NOTE ---
Assessment/Plan - Problem List (1) Atrial fibrillation with RVR Assessment/Plan: He needed a Diltiazem drip in the ICU for rate control and then was transitioned to new Cardizem 60 qid, and a higher dose of Metoprolol Succ since admission. He is on Eliquis for stroke prophylaxis. Will decrease the Cardizem down to tid with meals, since this new high dose may cause kelley or worsened hypotension after discharge. Monitor orthostatic BPs. (2) Bacteremia Assessment/Plan: On Vanco and Zosyn for Staph epi bacteremia. Sens are available and will be changing to oral antibx (3) Catheter-associated urinary tract infection Qualifiers: Indwelling urinary catheter type: indwelling urethral catheter Encounter type: initial encounter Qualified Code(s): T83.511A - Infection and inflammatory reaction due to indwelling urethral catheter, initial encounter; N39.0 - Urinary tract infection, site not specified Assessment/Plan: On Vanco and Zosyn for E fecalis bacteriuria. Will be changing to oral Cipro (4) CKD (chronic kidney disease) Assessment/Plan: Creat was improving daily since admission and has plateaued at 1.4, therefore he now has CKD. (5) Alzheimer's dementia Assessment/Plan: To return to [facility] he needs a recent neg COVID result, per SW. He did have a neg result on 08/19/19. Will order COVID test today, for possible DCh tomorrow (6) Scrotal hernia Assessment/Plan: Is reducible and non-tender. Stable. (7) Sepsis Qualifiers: Sepsis type: sepsis due to unspecified organism Sepsis acute organ dysfunction status: with acute organ dysfunction Severe sepsis shock status: without septic shock Assessment/Plan: Resolved (8) Hematuria Qualifiers: Hematuria type: gross Qualified Code(s): R31.0 - Gross hematuria Assessment/Plan: Resolved - Current Meds Current Meds: Current Medications Generic Name Dose Route Start Last Admin Trade Name Freq PRN Reason Stop Dose Admin Acetaminophen 650 mg 08/23/19 19:26 08/25/19 22:29 Tylenol PO 650 mg Q4HR PRN Administration Pain or Fever > 38C (100.4F) Apixaban 2.5 mg 08/22/19 11:00 08/27/19 08:09 Eliquis PO 2.5 mg BID GLORIA Administration Cholecalciferol 2,000 unit 08/24/19 09:00 08/27/19 08:09 Vitamin D3 PO 2,000 unit DAILY GLORIA Administration Famotidine 20 mg 08/22/19 21:00 08/26/19 21:24 Pepcid PO 20 mg QPM GLORIA Administration Piperacillin Sod/Tazobactam 100 mls @ 25 mls/hr 08/22/19 16:00 08/27/19 08:09 Sod 3.375 gm/ Sodium Chloride IV 25 mls/hr Q8H GLORIA Administration Vancomycin HCl 1 gm/ Sodium 250 mls @ 167 mls/hr 08/26/19 10:00 08/27/19 10:11 Chloride IV 167 mls/hr Q24H GLORIA Administration Dextrose 1,000 mls @ 83.333 mls/hr 08/27/19 10:00 08/27/19 10:00 D5w IV 08/27/19 21:59 83.333 mls/hr .Q12H GLORIA Administration Metoprolol Succinate 100 mg 08/21/19 09:00 08/27/19 08:09 Toprol Xl PO 100 mg DAILY GLORIA Administration Metoprolol Tartrate 5 mg 08/19/19 21:44 08/20/19 11:59 Lopressor Inj IVP 5 mg Q2HR PRN Administration Tachycardia Mineral Oil 1 applic 08/19/19 15:19 08/26/19 13:38 Cavilon TOP 1 applic PRN PRN Administration Skin Care Multi-Ingredient Ointment 1 applic 08/19/19 15:19 08/19/19 16:16 Zinc Oxide TOP 1 applic PRN PRN Administration Skin Care Multivitamins/Minerals 1 tab 08/21/19 14:00 08/27/19 08:09 Theragran M PO 1 tab DAILYWM GLORIA Administration Polyethylene Glycol 17 gm 08/20/19 09:00 08/27/19 08:13 Miralax PO Not Given DAILY [facility] Saccharomyces Boulardii 250 mg 08/24/19 17:00 08/27/19 08:09 Florastor PO 250 mg BIDWM GLORIA Administration Sodium Chloride 10 ml 08/19/19 17:00 08/27/19 09:00 Normal Saline Flush 0.9% IVP 10 ml 0100,0900,1700 GLORIA Administration Sodium Chloride 10 ml 08/19/19 11:32 08/26/19 12:18 Normal Saline Flush 0.9% IVP 10 ml PRN PRN Administration NEEDED PER PROVIDER ORDERS - Lab Result Fish Bone Diagrams: 08/26/19 04:50 08/26/19 04:50 - Additional Planning My Orders: My Active Orders 08/27/19 10:00 Dextrose 5% [D5w] 1,000 ml IV 83.333 mls/hr 08/27/19 12:00 diltiaZEM [Cardizem] 60 mg PO TIDWM 08/28/19 05:00 BMP - BASIC METABOLIC PANEL [CHEM] DAILYLAB Subjective - Subjective Patient Reports: Other (Sitting up in chair watching TV, nodded yes to "how do you feel") Nursing Reports: Confused, Other (Follows commands) Objective Vital Signs: Vital Signs - 24 hr 08/26/19 08/26/19 08/26/19 12:11 12:21 13:10 Temperature 36.9 C Heart Rate [ 107 H Monitoring electrodes] Heart Rate [ Sitting (After 1 Minute)] Heart Rate [ Standing (After 1 Minute)] Heart Rate [ 106 H Supine] Respiratory 15 Rate Blood Pressure 96/69 Blood Pressure 96/69 [Left Brachial artery] Blood Pressure [Sitting (After 1 Minute)] Blood Pressure [Standing ( After 1 Minute) ] Blood Pressure 89/54 L [Supine] O2 Saturation 08/26/19 08/26/19 08/26/19 13:12 13:15 16:00 Temperature 37.3 C Heart Rate [ 95 Monitoring electrodes] Heart Rate [ 106 H Sitting (After 1 Minute)] Heart Rate [ 99 Standing (After 1 Minute)] Heart Rate [ Supine] Respiratory 14 Rate Blood Pressure Blood Pressure 103/70 [Left Brachial artery] Blood Pressure 113/75 [Sitting (After 1 Minute)] Blood Pressure 113/78 [Standing ( After 1 Minute) ] Blood Pressure [Supine] O2 Saturation 08/26/19 08/26/19 08/26/19 16:51 17:23 19:59 Temperature 37.6 C H Heart Rate [ 101 H Monitoring electrodes] Heart Rate [ Sitting (After 1 Minute)] Heart Rate [ Standing (After 1 Minute)] Heart Rate [ Supine] Respiratory 18 16 Rate Blood Pressure 103/70 Blood Pressure 88/67 L [Left Brachial artery] Blood Pressure [Sitting (After 1 Minute)] Blood Pressure [Standing ( After 1 Minute) ] Blood Pressure [Supine] O2 Saturation 99 99 08/27/19 08/27/19 08/27/19 00:00 00:45 04:00 Temperature 37.4 C 36.9 C Heart Rate [ 98 104 H Monitoring electrodes] Heart Rate [ Sitting (After 1 Minute)] Heart Rate [ Standing (After 1 Minute)] Heart Rate [ Supine] Respiratory 18 18 Rate Blood Pressure 105/73 Blood Pressure 105/73 108/72 [Left Brachial artery] Blood Pressure [Sitting (After 1 Minute)] Blood Pressure [Standing ( After 1 Minute) ] Blood Pressure [Supine] O2 Saturation 100 08/27/19 08/27/19 06:15 08:00 Temperature 37.0 C Heart Rate [ 96 Monitoring electrodes] Heart Rate [ Sitting (After 1 Minute)] Heart Rate [ Standing (After 1 Minute)] Heart Rate [ Supine] Respiratory 20 Rate Blood Pressure 99/63 Blood Pressure 107/63 [Left Brachial artery] Blood Pressure [Sitting (After 1 Minute)] Blood Pressure [Standing ( After 1 Minute) ] Blood Pressure [Supine] O2 Saturation Oxygen O2 Source Room air I&O (Last 24 Hrs): Intake and Output Totals x24h 08/25/19 08/26/19 08/27/19 23:59 23:59 23:59 Intake Total 4559.667 4099.783 1170 Output Total 925 1350 725 Balance 3634.667 2749.783 445 General: Alert HEENT: Mucous membr. moist/pink Neck: Supple Neuro: Disoriented, Non Focal Respiratory: No respiratory distress Abdomen: Soft Extremities: No edema - Results Results: Laboratory Results WBC 8.8 x10^3/uL (4.8-10.8) 08/26/19 04:50 RBC 3.38 10^6/uL (4.70-6.10) L 08/26/19 04:50 Hgb 10.7 g/dL (14.0-18.0) L 08/26/19 04:50 Hct 33.4 % (42.0-52.0) L 08/26/19 04:50 MCV 98.8 fL (80.0-94.0) H 08/26/19 04:50 MCH 31.7 pg (27.0-31.0) H 08/26/19 04:50 MCHC 32.0 g/dL (32.0-36.0) 08/26/19 04:50 RDW 15.0 % (12.0-15.0) 08/26/19 04:50 Plt Count 140 10^3/uL (130-450) 08/26/19 04:50 MPV 11.4 fL (7.4-11.4) 08/26/19 04:50 Neut # (Auto) 6.7 10^3/uL (1.5-6.6) H 08/26/19 04:50 Lymph # (Auto) 1.3 10^3/uL (1.5-3.5) L 08/26/19 04:50 [place] # (Auto) 0.5 10^3/uL (0.0-1.0) 08/26/19 04:50 Eos # (Auto) 0.2 10^3/uL (0.0-0.7) 08/26/19 04:50 Baso # (Auto) 0.0 10^3/uL (0.0-0.1) 08/26/19 04:50 Absolute Nucleated RBC 0.00 x10^3/uL 08/26/19 04:50 Total Counted 100 08/19/19 10:14 Band Neuts % (Manual) 6 % (0-10) 08/19/19 10:14 Abnorm Lymph % (Manual) 0 % 08/19/19 10:14 Nucleated RBC % 0.0 /100WBC 08/26/19 04:50 Neutrophils # (Manual) 29.4 10^3/uL (1.5-6.6) H 08/19/19 10:14 Lymphocytes # (Manual) 0.0 10^3/uL (1.5-3.5) L 08/19/19 10:14 Monocytes # (Manual) 0.0 10^3/uL (0.0-1.0) 08/19/19 10:14 Eosinophils # (Manual) 0.0 10^3/uL (0-0.7) 08/19/19 10:14 Basophils # (Manual) 0.0 10^3/uL (0-0.1) 08/19/19 10:14 Differential Comment MANUAL DIFFERENTIAL 08/19/19 10:14 Manual Slide Review Indicated 08/19/19 10:14 PT 18.4 secs (9.9-12.6) H 08/21/19 07:55 INR 1.7 (0.8-1.2) H 08/21/19 07:55 APTT 32.2 secs (24.9-33.3) 08/20/19 04:30 VBG pH 7.385 (7.31-7.41) 08/25/19 05:56 Ionized Calcium 1.03 mmol/L (1.15-1.33) L 08/25/19 05:56 Sodium 148 mmol/L (135-145) H 08/26/19 04:50 Potassium 3.2 mmol/L (3.5-5.0) L 08/26/19 04:50 Chloride 118 mmol/L (101-111) H 08/26/19 04:50 Carbon Dioxide 23 mmol/L (21-32) 08/26/19 04:50 Anion Gap 7.0 (6-13) 08/26/19 04:50 BUN 30 mg/dL (6-20) H 08/26/19 04:50 Creatinine 1.4 mg/dL (0.6-1.2) H 08/26/19 04:50 Estimated GFR (MDRD) 48 (>89) L 08/26/19 04:50 Glucose 101 mg/dL (70-100) H 08/26/19 04:50 POC Whole Bld Glucose 123 mg/dL (70 - 100) H 08/20/19 11:22 Lactic Acid 1.6 mmol/L (0.5-2.2) 08/20/19 04:30 Uric Acid 6.5 mg/dL (2.6-7.2) 08/23/19 08:10 Calcium 6.8 mg/dL (8.5-10.3) L 08/26/19 04:50 Phosphorus 2.1 mg/dL (2.5-4.6) L 08/26/19 04:50 Magnesium 2.0 mg/dL (1.7-2.8) 08/25/19 04:25 Total Bilirubin 0.7 mg/dL (0.2-1.0) 08/20/19 04:30 AST 24 IU/L (10-42) 08/20/19 04:30 ALT 24 IU/L (10-60) 08/20/19 04:30 Alkaline Phosphatase 77 IU/L (42-121) 08/20/19 04:30 Total Creatine Kinase 51 IU/L (22-269) 08/19/19 08:38 Troponin I High Sens 14.0 ng/L (2.3-19.7) 08/19/19 18:14 Total Protein 5.1 g/dL (6.7-8.2) L 08/20/19 04:30 Albumin 1.7 g/dL (3.2-5.5) L 08/25/19 04:25 Globulin 3.0 g/dL (2.1-4.2) 08/20/19 04:30 Albumin/Globulin Ratio 0.7 (1.0-2.2) L 08/20/19 04:30 Lipase 34 U/L (22-51) 08/19/19 08:38 Urine Color RED/BLOODY 08/19/19 08:41 Urine Clarity CLOUDY (CLEAR) 08/19/19 08:41 Urine pH 8.5 PH (5.0-7.5) H 08/19/19 08:41 Ur Specific [place] 1.010 (1.002-1.030) 08/19/19 08:41 Urine Protein 100 mg/dL (NEGATIVE) H 08/19/19 08:41 Urine Glucose (UA) NEGATIVE mg/dL (NEGATIVE) 08/19/19 08:41 Urine Ketones NEGATIVE mg/dL (NEGATIVE) 08/19/19 08:41 Urine Occult Blood LARGE (NEGATIVE) H 08/19/19 08:41 Urine Nitrite POSITIVE (NEGATIVE) H 08/19/19 08:41 Urine Bilirubin NEGATIVE (NEGATIVE) 08/19/19 08:41 Urine Urobilinogen 0.2 (NORMAL) E.U./dL (NORMAL) 08/19/19 08:41 Ur Leukocyte Esterase LARGE (NEGATIVE) H 08/19/19 08:41 Urine RBC TNTC /HPF (0-5) H 08/19/19 08:41 Urine WBC >25 /HPF (0-3) H 08/19/19 08:41 Ur Squamous Epith Cells NONE SEEN (<= Few) 08/19/19 08:41 Urine Bacteria Few /HPF (None Seen) 08/19/19 08:41 Ur Microscopic Review INDICATED 08/19/19 08:41 Urine Culture Comments INDICATED 08/19/19 08:41 Nasal Screen MRSA (PCR) NEGATIVE (NEGATIVE) 08/19/19 13:08 Last Dose Date UNK 08/27/19 08:54 Last Dose Time UNK 08/27/19 08:54 Vancomycin Trough 16.7 ug/mL (10.0-20.0) 08/27/19 08:54 Random Vancomycin 7.8 ug/mL 08/25/19 04:25 Ethyl Alcohol < 5.0 mg/dL 08/19/19 08:38 Coronavirus (PCR) NEGATIVE 08/19/19 12:10 Blood Type O NEGATIVE 08/20/19 04:30 Blood Type Recheck O NEGATIVE 08/20/19 06:55 Antibody Screen NEGATIVE 08/20/19 04:30 Sepsis Event Note (H) - Evaluation Current Stage of Sepsis: Sepsis Possible source of Sepsis: positive: Pulmonary, Genitourinary - Sepsis Criteria Sepsis Criteria: Recorded Heart Rate greater than 90 bpm, Respiratory: Increasing oxygen requirements, WBC count greater than 12,000 or less than 4000, [employer]: altered consciousness (unrelated to primary neuro pathology), SBP less than 90 mmHg, Metabolic: lactate > 2 mmol/L
[2019-08-27] MEDS: FAMOTIDINE 20 MG TABLET PO SCH (21:15)
[2019-08-27] MEDS: SODIUM CHLORIDE FLUSH 0.9% 10 ML SYRINGE IVP PRN (23:49)
[2019-08-28 05:45] LABS: CALCIUM 6.9 mg/dL (8.5-10.3); CREATININE 1.1 mg/dL (0.6-1.2)
--- NOTE | 2019-08-28 07:39 | PROVIDER PROGRESS NOTE ---
Assessment/Plan - Problem List (1) Atrial fibrillation with RVR Assessment/Plan: HR is again elevated, since the Cardizem qid was decreased to tid w/ meals yesterday. Since BP is "soft" will use Dig for rate control: IV Dig 250 mcg x1, then Dig 125 mcg on Mon, Wed, Fri (dosed this way due to CKD). Will check a Dig level in a.m. He is on a stable dose of Eliquis for stroke prophylaxis. He cannot be Dch yet today due to tachycardia and med adjustments needed.. (2) Hypokalemia Assessment/Plan: He has had hypokaqlemia nearly daily since admission, even with MAYA. he has no vomiting, diarrhea or diuretic use to explain the chronically low serum K. Will replace K since the creat is nearly normalized. Will obtain a spot urine Na and K, urine creat and VBG, to evaluate for Potassium wasting and RTA. Will check serum Mg, since the K will be low until adequate Mg. (3) Rash Assessment/Plan: The appearance is of contact dermatitis. Will start topical Hydrocortisone cream. (4) CKD (chronic kidney disease) Assessment/Plan: Creat better (5) Bacteremia Assessment/Plan: Will stop the Vanco and change to Cipro po. (6) Catheter-associated urinary tract infection Qualifiers: Indwelling urinary catheter type: indwelling urethral catheter Encounter type: initial encounter Qualified Code(s): T83.511A - Infection and inflammatory reaction due to indwelling urethral catheter, initial encounter; N39.0 - Urinary tract infection, site not specified Assessment/Plan: Will stop the Zosyn and change to Cipro po (7) Alzheimer's dementia Assessment/Plan: Stable, follows commands and is cooperative. Needs a dysphagia diet. Plan is to return to memory care unit at [facility] when discharged. (8) Scrotal hernia Assessment/Plan: This was seen by Gen Surgeon, it is reducible and non-tender and stable. (9) Sepsis Qualifiers: Sepsis type: sepsis due to unspecified organism Sepsis acute organ dysfunction status: with acute organ dysfunction Severe sepsis shock status: without septic shock Assessment/Plan: Resolved (10) Hematuria Qualifiers: Hematuria type: gross Qualified Code(s): R31.0 - Gross hematuria Assessment/Plan: Resolved - Current Meds Current Meds: Current Medications Generic Name Dose Route Start Last Admin Trade Name Freq PRN Reason Stop Dose Admin Acetaminophen 650 mg 08/23/19 19:26 08/25/19 22:29 Tylenol PO 650 mg Q4HR PRN Administration Pain or Fever > 38C (100.4F) Apixaban 2.5 mg 08/22/19 11:00 08/27/19 21:15 Eliquis PO 2.5 mg BID GLORIA Administration Cholecalciferol 2,000 unit 08/24/19 09:00 08/27/19 08:09 Vitamin D3 PO 2,000 unit DAILY GLORIA Administration Diltiazem HCl 60 mg 08/27/19 12:00 08/27/19 17:14 Cardizem PO 60 mg TIDWM GLORIA Administration Famotidine 20 mg 08/22/19 21:00 08/27/19 21:15 Pepcid PO 20 mg QPM GLORIA Administration Piperacillin Sod/Tazobactam 100 mls @ 25 mls/hr 08/22/19 16:00 08/28/19 03:50 Sod 3.375 gm/ Sodium Chloride IV Infused Q8H GLORIA Infusion Vancomycin HCl 1 gm/ Sodium 250 mls @ 167 mls/hr 08/26/19 10:00 08/27/19 12 :15 Chloride IV Infused Q24H GLORIA Infusion Metoprolol Succinate 100 mg 08/21/19 09:00 08/27/19 08:09 Toprol Xl PO 100 mg DAILY GLORIA Administration Metoprolol Tartrate 5 mg 08/19/19 21:44 08/20/19 11:59 Lopressor Inj IVP 5 mg Q2HR PRN Administration Tachycardia Mineral Oil 1 applic 08/19/19 15:19 08/26/19 13:38 Cavilon TOP 1 applic PRN PRN Administration Skin Care Multi-Ingredient Ointment 1 applic 08/19/19 15:19 08/19/19 16:16 Zinc Oxide TOP 1 applic PRN PRN Administration Skin Care Multivitamins/Minerals 1 tab 08/21/19 14:00 08/27/19 08:09 Theragran M PO 1 tab DAILYWM GLORIA Administration Polyethylene Glycol 17 gm 08/20/19 09:00 08/27/19 08:13 Miralax PO Not Given DAILY GLORIA Saccharomyces Boulardii 250 mg 08/24/19 17:00 08/27/19 17:14 Florastor PO 250 mg BIDWM GLORIA Administration Sodium Chloride 10 ml 08/19/19 17:00 08/27/19 23:49 Normal Saline Flush 0.9% IVP 10 ml 0100,0900,1700 GLORIA Administration Sodium Chloride 10 ml 08/19/19 11:32 08/27/19 23:49 Normal Saline Flush 0.9% IVP 10 ml PRN PRN Administration NEEDED PER PROVIDER ORDERS - Lab Result Fish Bone Diagrams: 08/26/19 04:50 08/28/19 04:30 - Additional Planning My Orders: My Active Orders 08/27/19 11:20 COVID-19 REFERENCE TEST Routine 08/27/19 12:00 diltiaZEM [Cardizem] 60 mg PO TIDWM 08/28/19 08:00 Potassium Chloride/Water 10 mEq/100 mL q1h (Enter # of bags) Potassium Chlor 10 Meq/100 ml [Potassium Chloride] 10 meq in 100 ml IV Q1H Subjective - Subjective Nursing Reports: Other (RN noticed a new rash on trunk, non-pruritic. HR has been 100-160 briefly today, in Afib.) Objective Vital Signs: Vital Signs - 24 hr 08/27/19 08/27/19 08/27/19 08:00 12:00 12:03 Temperature 37.0 C Heart Rate [ 96 105 H Monitoring electrodes] Respiratory 20 18 Rate Blood Pressure 106/75 Blood Pressure 107/63 106/75 [Left Brachial artery] O2 Saturation 100 08/27/19 08/27/19 08/27/19 16:00 17:14 19:44 Temperature 37.2 C 37.6 C H Heart Rate [ 100 96 Monitoring electrodes] Respiratory 19 20 Rate Blood Pressure 107/63 Blood Pressure 107/73 115/74 [Left Brachial artery] O2 Saturation 94 100 08/28/19 08/28/19 00:10 04:30 Temperature 37.5 C 37.3 C Heart Rate [ 96 115 H Monitoring electrodes] Respiratory 19 15 Rate Blood Pressure Blood Pressure 105/74 107/71 [Left Brachial artery] O2 Saturation 98 100 Oxygen O2 Source Room air I&O (Last 24 Hrs): Intake and Output Totals x24h 08/26/19 08/27/19 08/28/19 23:59 23:59 23:59 Intake Total 4099.783 3950 440 Output Total 1350 1375 1250 Balance 2749.783 2575 -810 General: Alert HEENT: Atraumatic, Mucous membr. moist/pink Neck: Supple, No JVD Neuro: Alert, Other (Minimally communicative, follows all commands, non-focal exam) Cardiovascular: Other (Tachy and irreg) Respiratory: No respiratory distress Abdomen: Soft, Other (Macular blotchy rash of lower abdomen and up both lateral abd call) Extremities: No edema - Results Results: Laboratory Results WBC 8.8 x10^3/uL (4.8-10.8) 08/26/19 04:50 RBC 3.38 10^6/uL (4.70-6.10) L 08/26/19 04:50 Hgb 10.7 g/dL (14.0-18.0) L 08/26/19 04:50 Hct 33.4 % (42.0-52.0) L 08/26/19 04:50 MCV 98.8 fL (80.0-94.0) H 08/26/19 04:50 MCH 31.7 pg (27.0-31.0) H 08/26/19 04:50 MCHC 32.0 g/dL (32.0-36.0) 08/26/19 04:50 RDW 15.0 % (12.0-15.0) 08/26/19 04:50 Plt Count 140 10^3/uL (130-450) 08/26/19 04:50 MPV 11.4 fL (7.4-11.4) 08/26/19 04:50 Neut # (Auto) 6.7 10^3/uL (1.5-6.6) H 08/26/19 04:50 Lymph # (Auto) 1.3 10^3/uL (1.5-3.5) L 08/26/19 04:50 [place] # (Auto) 0.5 10^3/uL (0.0-1.0) 08/26/19 04:50 Eos # (Auto) 0.2 10^3/uL (0.0-0.7) 08/26/19 04:50 Baso # (Auto) 0.0 10^3/uL (0.0-0.1) 08/26/19 04:50 Absolute Nucleated RBC 0.00 x10^3/uL 08/26/19 04:50 Total Counted 100 08/19/19 10:14 Band Neuts % (Manual) 6 % (0-10) 08/19/19 10:14 Abnorm Lymph % (Manual) 0 % 08/19/19 10:14 Nucleated RBC % 0.0 /100WBC 08/26/19 04:50 Neutrophils # (Manual) 29.4 10^3/uL (1.5-6.6) H 08/19/19 10:14 Lymphocytes # (Manual) 0.0 10^3/uL (1.5-3.5) L 08/19/19 10:14 Monocytes # (Manual) 0.0 10^3/uL (0.0-1.0) 08/19/19 10:14 Eosinophils # (Manual) 0.0 10^3/uL (0-0.7) 08/19/19 10:14 Basophils # (Manual) 0.0 10^3/uL (0-0.1) 08/19/19 10:14 Differential Comment MANUAL DIFFERENTIAL 08/19/19 10:14 Manual Slide Review Indicated 08/19/19 10:14 PT 18.4 secs (9.9-12.6) H 08/21/19 07:55 INR 1.7 (0.8-1.2) H 08/21/19 07:55 APTT 32.2 secs (24.9-33.3) 08/20/19 04:30 VBG pH 7.385 (7.31-7.41) 08/25/19 05:56 Ionized Calcium 1.03 mmol/L (1.15-1.33) L 08/25/19 05:56 Sodium 142 mmol/L (135-145) 08/28/19 04:30 Potassium 3.1 mmol/L (3.5-5.0) L 08/28/19 04:30 Chloride 114 mmol/L (101-111) H 08/28/19 04:30 Carbon Dioxide 20 mmol/L (21-32) L 08/28/19 04:30 Anion Gap 8.0 (6-13) 08/28/19 04:30 BUN 34 mg/dL (6-20) H 08/28/19 04:30 Creatinine 1.1 mg/dL (0.6-1.2) 08/28/19 04:30 Estimated GFR (MDRD) 63 (>89) L 08/28/19 04:30 Glucose 105 mg/dL (70-100) H 08/28/19 04:30 POC Whole Bld Glucose 123 mg/dL (70 - 100) H 08/20/19 11:22 Lactic Acid 1.6 mmol/L (0.5-2.2) 08/20/19 04:30 Uric Acid 6.5 mg/dL (2.6-7.2) 08/23/19 08:10 Calcium 6.9 mg/dL (8.5-10.3) L 08/28/19 04:30 Phosphorus 2.1 mg/dL (2.5-4.6) L 08/26/19 04:50 Magnesium 2.0 mg/dL (1.7-2.8) 08/25/19 04:25 Total Bilirubin 0.7 mg/dL (0.2-1.0) 08/20/19 04:30 AST 24 IU/L (10-42) 08/20/19 04:30 ALT 24 IU/L (10-60) 08/20/19 04:30 Alkaline Phosphatase 77 IU/L (42-121) 08/20/19 04:30 Total Creatine Kinase 51 IU/L (22-269) 08/19/19 08:38 Troponin I High Sens 14.0 ng/L (2.3-19.7) 08/19/19 18:14 Total Protein 5.1 g/dL (6.7-8.2) L 08/20/19 04:30 Albumin 1.7 g/dL (3.2-5.5) L 08/25/19 04:25 Globulin 3.0 g/dL (2.1-4.2) 08/20/19 04:30 Albumin/Globulin Ratio 0.7 (1.0-2.2) L 08/20/19 04:30 Lipase 34 U/L (22-51) 08/19/19 08:38 Urine Color RED/BLOODY 08/19/19 08:41 Urine Clarity CLOUDY (CLEAR) 08/19/19 08:41 Urine pH 8.5 PH (5.0-7.5) H 08/19/19 08:41 Ur Specific Bayard 1.010 (1.002-1.030) 08/19/19 08:41 Urine Protein 100 mg/dL (NEGATIVE) H 08/19/19 08:41 Urine Glucose (UA) NEGATIVE mg/dL (NEGATIVE) 08/19/19 08:41 Urine Ketones NEGATIVE mg/dL (NEGATIVE) 08/19/19 08:41 Urine Occult Blood LARGE (NEGATIVE) H 08/19/19 08:41 Urine Nitrite POSITIVE (NEGATIVE) H 08/19/19 08:41 Urine Bilirubin NEGATIVE (NEGATIVE) 08/19/19 08:41 Urine Urobilinogen 0.2 (NORMAL) E.U./dL (NORMAL) 08/19/19 08:41 Ur Leukocyte Esterase LARGE (NEGATIVE) H 08/19/19 08:41 Urine RBC TNTC /HPF (0-5) H 08/19/19 08:41 Urine WBC >25 /HPF (0-3) H 08/19/19 08:41 Ur Squamous Epith Cells NONE SEEN (<= Few) 08/19/19 08:41 Urine Bacteria Few /HPF (None Seen) 08/19/19 08:41 Ur Microscopic Review INDICATED 08/19/19 08:41 Urine Culture Comments INDICATED 08/19/19 08:41 Nasal Screen MRSA (PCR) NEGATIVE (NEGATIVE) 08/19/19 13:08 Last Dose Date UNK 08/27/19 08:54 Last Dose Time UNK 08/27/19 08:54 Vancomycin Trough 16.7 ug/mL (10.0-20.0) 08/27/19 08:54 Random Vancomycin 7.8 ug/mL 08/25/19 04:25 Ethyl Alcohol < 5.0 mg/dL 08/19/19 08:38 Coronavirus (PCR) NEGATIVE 08/19/19 12:10 Blood Type O NEGATIVE 08/20/19 04:30 Blood Type Recheck O NEGATIVE 08/20/19 06:55 Antibody Screen NEGATIVE 08/20/19 04:30 Sepsis Event Note (H) - Evaluation Current Stage of Sepsis: Sepsis Possible source of Sepsis: positive: Pulmonary, Genitourinary - Sepsis Criteria Sepsis Criteria: Recorded Heart Rate greater than 90 bpm, Respiratory: Increasing oxygen requirements, WBC count greater than 12,000 or less than 4000, HAND CLIPPER: altered consciousness (unrelated to primary neuro pathology), SBP less than 90 mmHg, Metabolic: lactate > 2 mmol/L
[2019-08-28] MEDS: POTASSIUM CHLOR 10 MEQ/100 ML 10 MEQ/100 ML BAG IV SCH ×2 (07:55→09:05)
[2019-08-28] MEDS: PIPERACILLIN/TAZOBACTAM 3.375 GM in SODIUM CHLORIDE 0.9% MINIBAG 100 ML IV SCH (08:41)
[2019-08-28] MEDS: METOPROLOL SUCCINATE 50 MG TABLET PO SCH (08:42)
[2019-08-28] MEDS: MULTIVITAMIN W/MINERALS TABLET PO SCH (08:43)
[2019-08-28] MEDS: CHOLECALCIFEROL 1,000 UNIT TABLET PO SCH (08:43)
[2019-08-28] MEDS: SACCHAROMYCES BOULARDII 250 MG CAPSULE PO SCH ×2 (08:44→16:45)
[2019-08-28] MEDS: APIXABAN 2.5 MG TABLET PO SCH ×2 (08:44→20:42)
[2019-08-28] MEDS: polyethylene glycoL 3350 17 GM PACKET PO SCH (09:05)
[2019-08-28] MEDS: SODIUM CHLORIDE FLUSH 0.9% 10 ML SYRINGE IVP SCH ×2 (09:06→16:50)
[2019-08-28] MEDS ORDERED: DIGOXIN 500 MCG/2 ML AMP IVP SCH (10:00)
[2019-08-28] MEDS: ZINC OXIDE 20% OINT 30 GM TUBE TOP PRN (10:30)
[2019-08-28] MEDS: VANCOMYCIN INJ 1 GM in SODIUM CHLORIDE 0.9% 250 ML IV SCH (11:01)
[2019-08-28] MEDS: SODIUM CHLORIDE FLUSH 0.9% 10 ML SYRINGE IVP PRN ×4 (11:12→14:24)
[2019-08-28] MEDS: ACETAMINOPHEN 325 MG TABLET PO PRN (12:24)
[2019-08-28] MEDS ORDERED: DIGOXIN 125 MCG TABLET PO SCH (13:00)
[2019-08-28 13:11] LABS: VBG BASE EXCESS -3.8 mmol/L (-2 - +2); VBG PCO2 44.2 mmHg (41-51); VBG PH 7.319 (7.31-7.41); VBG PO2 39.9 mmHg (25-47); VBG TOTAL CO2 23.6 mmol/L (24-29)
[2019-08-28 13:27] LABS: CREATININE,URINE 42.6 mg/dL
[2019-08-28] MEDS: HYDROCORTISONE 1% CREAM 28 GM TUBE TOP SCH ×2 (15:36→20:41)
[2019-08-28] MEDS: SODIUM CHLORIDE 0.45% 1,000 ML IV SCH (15:42)
[2019-08-28] MEDS: POTASSIUM CITRATE 5 MEQ TABLET PO SCH ×2 (16:45→21:38)
[2019-08-28] MEDS: CIPROFLOXACIN 250 MG TABLET PO SCH (20:42)
[2019-08-28] MEDS: FAMOTIDINE 20 MG TABLET PO SCH (20:42)
[2019-08-29] MEDS: SODIUM CHLORIDE 0.45% 1,000 ML IV SCH (03:48)
[2019-08-29 05:15] LABS: BASOPHILS # (AUTO) 0.1 10^3/uL (0.0-0.1); BASOPHILS % (AUTO) 0.7 %; EOSINOPHILS # (AUTO) 0.2 10^3/uL (0.0-0.7); EOSINOPHILS % (AUTO) 3.3 %; HGB - HEMOGLOBIN 10.3 g/dL (14.0-18.0); LYMPHOCYTES # (AUTO) 1.2 10^3/uL (1.5-3.5); LYMPHOCYTES % (AUTO) 16.4 %; MEAN CORPUSCULAR HEMOGLOBIN 31.4 pg (27.0-31.0); MEAN CORPUSCULAR HGB CONC 31.9 g/dL (32.0-36.0); MEAN CORPUSCULAR VOLUME 98.5 fL (80.0-94.0); MEAN PLATELET VOLUME 10.9 fL (7.4-11.4); MONOCYTES # (AUTO) 0.5 10^3/uL (0.0-1.0); MONOCYTES % (AUTO) 6.8 %; NEUTROPHILS # (AUTO) 5.3 10^3/uL (1.5-6.6); NEUTROPHILS % (AUTO) 71.7 %; PLT - PLATELET COUNT 166 10^3/uL (130-450); RED BLOOD COUNT 3.28 10^6/uL (4.70-6.10); WHITE BLOOD COUNT 7.4 x10^3/uL (4.8-10.8)
[2019-08-29 05:31] LABS: BUN - BLOOD UREA NITROGEN 29 mg/dL (6-20); CALCIUM 6.8 mg/dL (8.5-10.3); CARBON DIOXIDE - CO2 20 mmol/L (21-32); CHLORIDE 111 mmol/L (101-111); DIGOXIN 0.4 ng/mL; GLUCOSE 98 mg/dL (70-100); SODIUM 140 mmol/L (135-145)
[2019-08-29] MEDS: SODIUM CHLORIDE FLUSH 0.9% 10 ML SYRINGE IVP SCH (06:39)
[2019-08-29] MEDS: POTASSIUM CITRATE 5 MEQ TABLET PO SCH (06:44)
[2019-08-29 07:50] VITALS: BP 109/74
[2019-08-29] MEDS ORDERED: DIGOXIN 500 MCG/2 ML AMP IVP SCH (08:03)
--- NOTE | 2019-08-29 08:06 | Discharge Plan ---
"Discharge Plan for SNF / DEN[facility] - Discharge Plan And Transition Orders Problem Reviewed?: Yes Disposition: 03 SNF DC/Xfer Condition: Stable Allergies and Adverse Reactions: Allergies Allergy/AdvReac Type Severity Reaction Status Date / Time No Known Drug Allergies Allergy Verified 08/19/19 08:32 Health Concerns: Admitted with sepsis, had S. epi. bacteremia and E. fecalis UTI, also Afib with RVR. He has dementia and a chronic Kemp. 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 Plan of Treatment: Return [facility] with [facility] PT and OT. He needs to finish a course of antibiotics. There are several brand new meds started. Care Goals: Stabilization. Assessment: As per DEN[facility] orders. - SNF / [facility] Transition Orders Admit to (Facility): [facility] Under the care of (Name): [facility] Discharge Diagnosis: (1) Sepsis (2) Bacteremia with gram pos bacteria (3) Catheter-associated urinary tract infection (4) Atrial fibrillation with RVR (5) MAYA, resolved (6) Hypokalemia (7) RTA (Renal Tubular Acidosis) (8) Alzheimer's dementia (9) Scrotal hernia, stable (10) Hematuria, resolved (11) Rash Medicare Certification Statement: I certify that Post Hospital fpc care is medically necessary on a continuing basis for any of the conditions for which she/he is receiving care during hospitalization. Notify PCP of admission and forward orders to primary provider for signature. Weight on admission and: Weekly Call PCP immediately if weight increases by: 5 kg Other Notification Orders: Call PCP immediately if patient develops dyspnea, chest pain/tightness or edema. House Bowel Program: Yes Additional Bowel Program Orders: If no BM after 2 days, nurse may give M.O.M. 30ml PO PRN and/or ducolax Supp 1 VT and/or YONI 250mg P.O., and/or senna 1-2 tabs PO. On day 3 nurse may give repeat above order until residents constipation is resolved. Annual Influenza Vaccine (between Jan 04 and August 03): Yes Two-step PPD per [facility] [id number] or approved exception documents: Yes Treatments & Other Orders: Daily PT and OT Lab Tests or X-ray Orders: Dig level and BMP every Mon Medication Orders: PLEASE REFER TO THE DISCHARGE MEDICATION LIST. Insulin Orders?: No - Medications New Prescriptions: Cholecalciferol [Vitamin D3] 5,000 unit PO DAILY #30 capsule Ciprofloxacin [Cipro] 250 mg PO BID #8 tablet Digoxin [Lanoxin] 125 mcg PO MOWEFR #15 tablet diltiaZEM [Cardizem] 60 mg PO TIDWM #90 tablet Hydrocortisone 1% Oint [Hydrocortisone] 1 gm TP BID PRN #28 oint...g. PRN Reason: Per Physician Order Metoprolol Succinate [Toprol Xl] 100 mg PO DAILY #30 tablet Multivitamin W/Minerals [Theragran M] 1 tab PO DAILYWM #30 tablet Potassium Citrate [Urocit-K] 5 meq PO TID #90 tablet Saccharomyces Boulardii [Daily Probiotic] 250 mg PO DAILY #4 capsule - Diet Type: Geriatric Texture: Dysphagia mech Liquids: Thin May have monthly special meal: Yes - Therapies | Activity Therapy: Evaluation | Treat if indicated: Speech, PT, OT Rehabilitation Potential: Maximize functional status Activity: Activity as Tolerated Weight Bearing: Full Weight Assistance Devices: Walker Additional Instructions: See PCP for hospital follow-up in 5-10 days. Follow Up: Babita Benavides"
--- NOTE | 2019-08-29 08:53 | DISCHARGE SUMMARY ---
Discharge Summary Admit Date: 08/19/19 Discharge Date: 08/29/19 Discharging Provider: Dr Marcela Ugarte Primary Care Provider: Dr Babita Benavides Code Status: Do Not Attempt Resuscitation Condition at Discharge: Stable Discharge Disposition: SNF DC/Xfer Discharge Facility Name: [facility] History of Present Illness: From the admission H&P of Dr Karen Aleman: 88 yo male who resides at [facility] comes in because he was noted to be obtunded this morning by staff. No seizure activity noted. Pt has diagnosis of alzheimers dementia and was recently admitted to [facility] from [facility] for acute renal failure (resolved), urethral obstruction, BPH, pleural effusion. Pt had recently had his metoprolol dose dropped from 100 mg daily to 50 mg daily. He is on eliquis 2.5 mg twice daily for anticoagulation for chronic atrial fibrillation. Pt came to [facility] with indwelling solomon catheter that had been in place since being on [facility]. His ER workup revealed BP 91/70, HR 150 in afib, significantly elevated white count with severe acute kidney injury (BUN/creat 156/4.3) and evidence of UTI. He was administered Cefepime and Levaquin for combination of UTI and a potential pneumonia on x-ray and suspected urosepsis. He was given IV fluids and diltiazem. His Solomon was changed and he was admitted to the ICU. - HOSPITAL COURSE Hospital Course: (1) Sepsis He was started on iv antibiotics, iv fluids, rate-control meds and his WBC and obtunded status slowly improved. (2) Bacteremia with gram pos bacteria The blood grew 2 of 2 bottles positive for Staph epidermidis. His iv antibiotics were changed to iv Vanco and iv Zosyn. Repeat blood cultures were neg. The transition to oral antibiotic was based on overlap of sensitivities from this and his bacteriuria (see below). (3) Catheter-associated urinary tract infection His Solomon catheter was changed at admission. His urine culture grew a different bacteria than his blood: urine grew Entrococcus faecalis. Both bacteria were sensitive to Cipro, to which he was transitioned at discharge to complete a course with a probiotic. (4) Atrial fibrillation with RVR He required a long ICU stay in order to manage the tachycardia. When his Dilt iazem drip could eventually be stopped, he required a combination of (higher) Metoprolol Succinate, new Cardizem tid (he could not get the long-acting CD form because the medication needed to be crushed), and new qod Digoxin. A Dig level every Mon was ordered to be done at the SNF. He was also on Eliquis, for stroke prophylaxis. (5) MAYA, resolved The BUN/creat improved daily, on iv hydration and treatment of the UTI. BUN/creat was 20/1.0 at discharge. (6) Hypokalemia He had marked and persistent hypokalemia which required daily replacement. (7) RTA (Renal Tubular Acidosis) He had persistent hypokalemia, even when in MAYA. A work-up was undertaken. The venous pH was 7.31, acidotic; and the spot urine Potassium and urine creat showed a ratio of 14. Thus if the ratio is > 13 and acidosis present, he has Renal Tubular Acidosis. He was started on daily oral Potassium replacement with Potassium-Citrate. (8) Alzheimer's dementia He was minimally communicative, even after stabilized, but able to follow commands and could brush his hair and feed himself. He participated in PT, need ed a walker. He was discharged back to [facility] memory care with Home Health for PT, OT and Speech Therapy. (9) Scrotal hernia, stable This was evaluated by general veterinary surgery technologist; it was reducible and not painful, was felt to be stable. (10) Hematuria, resolved Related to the indwelling Solomon and his cystitis. It resolved. (11) Rash On his final 2 days, the nurse noticed a maculo-papular red rash of his lower tr unk bilaterally and up his right flank. It was probably contact dermatitis and was treated with topical Hydrocortisone cream. - ALLERGIES Allergies/Adverse Reactions: Allergies Allergy/AdvReac Type Severity Reaction Status Date / Time No Known Drug Allergies Allergy Verified 08/19/19 08:32 - MEDICATIONS Home Medications: Ambulatory Orders Medication Instructions Recorded Confirmed RX: Apixaban [Eliquis] 2.5 mg PO BID 08/02/19 08/19/19 RX: Acetaminophen 650 mg PO Q4HR PRN 08/19/19 08/19/19 RX: Bisacodyl Supp [Dulcolax Supp] 10 mg IN DAILY PRN 08/19/19 08/19/19 RX: Mag Hydrox/Al Hydrox/Simeth 5 ml PO Q4HR PRN 08/19/19 08/19/19 [Antacid Suspension] RX: Apixaban [Eliquis] 2.5 mg PO BID tablet 08/29/19 RX: Cholecalciferol [Vitamin D3] 5,000 unit PO DAILY #30 capsule 08/29/19 RX: Ciprofloxacin [Cipro] 250 mg PO BID #8 tablet 08/29/19 RX: Digoxin [Lanoxin] 125 mcg PO MOWEFR #15 tablet 08/29/19 RX: Hydrocortisone 1% Oint 1 gm TP BID PRN #28 oint...g. 08/29/19 [Hydrocortisone] RX: Metoprolol Succinate [Toprol 100 mg PO DAILY #30 tablet 08/29/19 Xl] RX: Multivitamin W/Minerals 1 tab PO DAILYWM #30 tablet 08/29/19 [Theragran M] RX: Potassium Citrate [Urocit-K] 5 meq PO TID #90 tablet 08/29/19 RX: Saccharomyces Boulardii [Daily 250 mg PO DAILY #4 capsule 08/29/19 Probiotic] RX: diltiaZEM [Cardizem] 60 mg PO TIDWM #90 tablet 08/29/19 - PHYSICAL EXAM AT DISCHARGE General Appearance: positive: No acute distress, Alert Eyes Bilateral: positive: Normal inspection, EOMI ENT: positive: No signs of dehydration Neck: positive: Nml inspection, No JVD Respiratory: positive: No respiratory distress, Breath sounds nml Cardiovascular: positive: No murmur, Other (Irreg irreg) Abdomen: positive: Non-tender, Nml bowel sounds, No distention Extremities: positive: Non-tender, No pedal edema Neurologic/Psychiatric: positive: Other (Flat affect, minimally communicative, non-focal muscular exam.) - LABS Result Diagrams: 08/29/19 04:55 08/29/19 04:55 - DIAGNOSTIC IMAGING Diagnostic Imaging Results: Final report reviewed - SEPSIS Current Stage of Sepsis: Sepsis Possible source of Sepsis: Genitourinary Sepsis Criteria: Recorded Heart Rate greater than 90 bpm, WBC count greater than 12,000 or less than 4000, UTILITY HELICOPTER REPAIRER: altered consciousness (unrelated to primary neuro pathology), SBP less than 90 mmHg, Metabolic: lactate > 2 mmol/L - FOLLOW UP Follow Up: See PCP in 1-2 weeks for hospital follow-up. - TIME SPENT Time Spent in Discharge (Minutes): 60
[2019-08-29] MEDS: APIXABAN 2.5 MG TABLET PO SCH (09:11)
[2019-08-29] MEDS: CIPROFLOXACIN 250 MG TABLET PO SCH (09:11)
[2019-08-29] MEDS: CHOLECALCIFEROL 1,000 UNIT TABLET PO SCH (09:11)
[2019-08-29] MEDS: MULTIVITAMIN W/MINERALS TABLET PO SCH (09:11)
[2019-08-29] MEDS: SACCHAROMYCES BOULARDII 250 MG CAPSULE PO SCH (09:11)
[2019-08-29] MEDS: METOPROLOL SUCCINATE 50 MG TABLET PO SCH (09:11)
== END 2019-08-29 10:30 | disposition home or self-care (01) | DRG 698 ==
LOC: EDUNIT# → ED 08:15 → ICU 11:32
PROVIDERS: ADMIT Family Medicine; ATTEND Internal Medicine
PROC: 02HV33Z Insertion of Infusion Device into Superior Vena Cava, Percutaneous Approach (ICD-10-PCS; principal; 2019-08-22)
DX: A41.9 Sepsis, unspecified organism (principal); T83.511A Infection and inflammatory reaction due to indwelling urethral catheter, initial encounter; A41.1 Sepsis due to other specified staphylococcus; N39.0 Urinary tract infection, site not specified; A41.81 Sepsis due to Enterococcus; F03.90 Unspecified dementia, unspecified severity, without behavioral disturbance, psychotic disturbance, mood disturbance, and anxiety; N17.0 Acute kidney failure with tubular necrosis; R65.20 Severe sepsis without septic shock; N17.9 Acute kidney failure, unspecified; N13.8 Other obstructive and reflux uropathy; I48.20 Chronic atrial fibrillation, unspecified; N30.91 Cystitis, unspecified with hematuria; N18.9 Chronic kidney disease, unspecified; N40.1 Benign prostatic hyperplasia with lower urinary tract symptoms; R33.9 Retention of urine, unspecified; G30.9 Alzheimer's disease, unspecified; F02.80 Dementia in other diseases classified elsewhere, unspecified severity, without behavioral disturbance, psychotic disturbance, mood disturbance, and anxiety; E87.6 Hypokalemia; K40.90 Unilateral inguinal hernia, without obstruction or gangrene, not specified as recurrent; L25.9 Unspecified contact dermatitis, unspecified cause; K42.9 Umbilical hernia without obstruction or gangrene; N28.1 Cyst of kidney, acquired; E83.42 Hypomagnesemia; E83.39 Other disorders of phosphorus metabolism; E83.51 Hypocalcemia; Z66 Do not resuscitate; Z79.01 Long term (current) use of anticoagulants; Z79.899 Other long term (current) drug therapy; Z20.828 Contact with and (suspected) exposure to other viral communicable diseases
CPT/HCPCS: 36415; 70450; 71045; 74018; 76770; 76870; 80048; 80053; 80162; 80202; 81001; 82040; 82330; 82550; 82570; 82803; 83605; 83690; 83735; 84100; 84133; 84300; 84484; 84550; 85025; 85610; 85730; 86850; 86900; 86901; 87040; 87077; 87086; 87150; 87181; 92610; 93005; 93306; 96361; 96365; 96367; 96375; 97161; 97167; 97530; 99285; 99291; A6250; A9270; J1650; J3370; J7040; U0002; U0004; 80320; 81003; 81599; 83880

== ENCOUNTER 2019-08-29 10:44 | Outpatient (CLI) | payer MEDICARE, OTHER | END 2019-08-29 10:45 | disposition home or self-care (01) | LOC: EMS 10:44 | PROVIDERS: ATTEND Surgery | DX: A41.9 Sepsis, unspecified organism (principal); N17.9 Acute kidney failure, unspecified; G30.9 Alzheimer's disease, unspecified; F02.80 Dementia in other diseases classified elsewhere, unspecified severity, without behavioral disturbance, psychotic disturbance, mood disturbance, and anxiety; Z74.01 Bed confinement status; R41.0 Disorientation, unspecified | CPT/HCPCS: A0425; A0428 ==

== ENCOUNTER 2019-09-07 01:10 | Outpatient (CLI) | payer MEDICARE, OTHER | END 2019-09-07 01:11 | disposition E | LOC: EMS 01:10 | PROVIDERS: ATTEND Surgery ==